=== PATIENT | male | born 1935 | race Caucasian/White ===

== ENCOUNTER 2017-03-11 16:55 | Inpatient (IN) ==
[2017-03-11] MEDS ORDERED: Naloxone 0.4 MG/ML INJ IVP PRN ×2 (22:33→22:37)
[2017-03-11] MEDS ORDERED: Ipratropium/Albuterol Neb 3 ML IH PRN (22:36)
--- NOTE | 2017-03-11 22:44 | Internal Med History&Physical ---
Date of Encounter: 03/11/17 Time of Encounter: 22:40 Assessment and Plan (1) Failure to thrive Current visit: Yes Status: Acute uncertain but could be related to progressive cancer syndrome ?? if sepsis work up negative IVF check blood cx, check CT chest UA from [facility] bland Hold antibiotics pending further testing above - he did not get better with antibiotics prior on chronic prednisone once daily per patient report - continue PT/OT may need placement Qualifiers: Failure to thrive age range: in adult Qualified Code(s): R62.7 - Adult failure to thrive (2) Persistent dry cough Current visit: Yes Status: Acute dry cough with associated SOB monitoring inpatient check CT chest w contrast to r/o PNA , PE (low suspicion) anti-tussive , duonebs (3) SOB (shortness of breath) Current visit: Yes Status: Acute pending above management and investigation (4) Prostate cancer metastatic to bone Current visit: Yes Status: Acute follow up with [facility] Internal Medicine - H&P: HPI Chief complaint: FTT History of present illness: Mr. Parsons is a 81 year old male with castrate resistant met prostate ca who preesnts with FTT symptoms in the last 1 month He presents as a transfer for [facility] for "PNA" ? He has apparently been admitted to the [facility] multiple times (4 x in last 3 weeks) in the last month for FTT symptoms with increased weakness, SOB, dry cough with no improvement despite antibiotic therapy. He would be discharged with no improvement, leading to repeated admission. ROS positive for hx of CAD s/p 8 stents. Has hx of met prostat can to liver and bones. EKG from [facility] reviewed by self with rate 120, sinus tachy While inpatient, Rate < 100 with good oxygenation on RA Past Med Surg Social Fam HX - Past Medical History Medical history: arthritis, cancer, coronary artery disease, diabetes, malignancy, myocardial infarction, TIA Psychiatric history: no psych history - Past Surgical History Surgical History: angioplasty/stent, prostatectomy - Social History Smoking Status: Former smoker Smokeless Tobacco Status: No Alcohol use: none Drug use: none - Family History Mother Living Status: Hx Family Cardiac Disorders: No Hx Family Respiratory Disorders: No Hx Family Cancer: Yes Hx Family GI Disorders: No Hx Family Genitourinary Disorders: Yes Hx Family Endocrine Disorder: No Hx Family Neuromuscular Disorders: No Hx Family Neurologic Disorders: No Hx Family HEENT Disorders: No Hx Family Autoimmune Disorders: No Hx Family Medical Disorders: Yes Internal Medicine - H&P: Meds Insulin ASPART [NovoLOG] 5 unit SQ TID MDD Sliding Scale 01/18/15 [History] Insulin Glargine,Hum.rec.anlog [Toujeo Solostar] 20 unit SQ DAILY 03/03/16 [ History] Nitroglycerin 0.4 mg SL Q5M PRN 03/03/16 [History] L. Acidophilus/Bifid. Animalis [One-A-Day Trubiotics Capsule] 1 each PO DAILY [History] Lutein 20 mg PO DAILY 04/17/16 [History] Cyanocobalamin (B-12) [Vitamin B12] 1,000 mcg IM QMONTH 01/01/17 [History] [place]-3/Dha/Epa/Fish Oil [Fish Oil 1,000 mg Softgel] 1 each PO DAILY 01/09/17 [ History] Ranitidine HCl [Zantac] 150 mg PO DAILY #30 tablet 01/09/17 [Rx] Enzalutamide [Xtandi] 120 mg PO HS #90 capsule 02/16/17 [Rx] Mv-Mn/FA/Lycopene/Lut/Hb#178 [Nirav Multivit For Men Caplet] 1 each PO DAILY [History] Promethazine [Phenergan] 25 mg PO Q6HR PRN #30 tablet 03/06/17 [Rx] predniSONE [PredniSONE] 5 mg PO BID #60 tablet 03/06/17 [Rx] 3 Allergy/AdvReac Type Severity Reaction Status Date / Time diphenhydramine Allergy Shakiness Verified 03/06/17 11:24 All Systems PM: A 10-system review of systems was performed and is negative for pertinent findings except as documented above in the HPI. Review of systems: ROS 14 point review of systems reviewed as best as possible given presentation. Pertinent positive or negative as per HPI or otherwise reviewed as negative - Constitutional Vitals: Temp Pulse Resp BP Pulse Ox 97.7 F 91 16 131/70 97 03/11/17 19:29 03/11/17 19:29 03/11/17 19:29 03/11/17 19:29 03/11/17 22:21 Exam: General - AAO x 3 Psych - Appropriate affect/speech. No agitation Eyes - JERAMY. Eye lids intact. No scleral icterus Neuro - No gross peripheral or central neuro deficits on inspection Heart - Sinus. RRR. S1 and S2 present. No added HS/murmurs appreciated. No elevated JVD appreciated. Lung - Adequate air entry b/l, No crackles/wheezes appreciated GI - Soft, non-tender. No hepatosplenomegaly/ascites. BS+ - No CVA/suprapubic tenderness or palpable bladder distension Skin - Intact. No rash/petechiae/ecchymosis. Warm extremities. No LE swellinh
[2017-03-11] MEDS ORDERED: Dextrose Gel 15 GM PO PRN ×2 (22:52)
[2017-03-11] MEDS ORDERED: D5% in Water 1,000 ML IVC PRN (22:52)
[2017-03-11] MEDS ORDERED: *HR* Dextrose 50 % in Water (Syg) 50 ML SYRINGE IVP PRN (22:52)
[2017-03-11] MEDS: Insulin DETEMIR 100 UNIT/ML X5UNITS SQ SCH (23:27)
[2017-03-12] MEDS: Ringers Solution, Lactated 1,000 ML IVC SCH ×2 (01:42→12:32)
[2017-03-12] MEDS: Benzonatate 100 MG CAPSULE PO PRN ×2 (04:09→12:24)
[2017-03-12 04:13] LABS: Basophils % 0.1 %; Eosinophils % 0.3 %; Hematocrit 32.2 % (37.5-50.1); Hemoglobin 10.4 g/dL (12.9-16.9); Immature Granulocytes % 0.6 % (0-4); Lymphocytes # 1.4 K/mcL (0.6-4.6); Lymphocytes % 9.4 %; Mean Corpuscular HGB Conc 32.3 g/dL (31.6-35.5); Mean Corpuscular Hemoglobin 27.4 pg (28.0-33.3); Mean Platelet Volume 9.6 fL (9.4-12.4); Monocytes # 1.2 K/mcL (0.0-1.3); Monocytes % 8.6 %; Neutrophils # 11.7 K/mcL (1.6-8.9); Platelet Count 196 K/mcL (140-400); Red Blood Count 3.79 M/mcL (4.19-5.50); Red Cell Distribution Width 13.9 % (11.5-14.5)
[2017-03-12 04:39] LABS: Albumin 2.7 g/dL (3.5-5.0); Albumin/Globulin Ratio 0.8 (1.1-2.2); Bilirubin,Direct 0.5 mg/dL (0.0-0.5); Bilirubin,Indirect 0.7 mg/dL (0.0-1.2); Bilirubin,Total 1.2 mg/dL (0.2-1.2); Calcium 8.9 mg/dL (8.6-10.8); Globulin 3.4 g/dL (2.4-3.5); Magnesium 1.5 mg/dL (1.6-2.6); Potassium 4.2 mEq/L (3.5-4.5); Total Protein 6.1 g/dL (6.0-8.3)
[2017-03-12] MEDS: Ipratropium/Albuterol Neb 3 ML IH SCH ×4 (04:55→22:21)
[2017-03-12] MEDS ORDERED: *HR* Enoxaparin 40 MG/0.4 ML SYRINGE SQ SCH (06:00)
[2017-03-12] MEDS: Insulin LISPRO 300 UNITS/3 ML VIAL SQ SCH ×4 (09:25→20:35)
[2017-03-12] MEDS: predniSONE 5 MG TABLET PO SCH (09:25)
[2017-03-12] MEDS: Famotidine 20 MG TABLET PO SCH (09:25)
[2017-03-12] MEDS: *HR* HYDROcodone/Acet 5/325 mg TABLET PO PRN (12:24)
[2017-03-12] MEDS ORDERED: 0.9 % Sodium Chloride 500 ML IVC ONE (14:53)
[2017-03-12] MEDS ORDERED: 0.9 % Sodium Chloride 500 ML ONE (14:54)
[2017-03-12] MEDS: *HR* Morphine 2 MG/ML SYRINGE IVP PRN (15:11)
[2017-03-12] MEDS: Nitroglycerin 0.4 MG TAB.SUBL SL PRN ×2 (15:15→15:20)
[2017-03-12] MEDS ORDERED: *HR* Adenosine 6 MG/2 ML VIAL IVP ONE (15:18)
[2017-03-12] MEDS ORDERED: Nitroglycerin 0.4 MG TAB.SUBL SL PRN (15:23)
--- NOTE | 2017-03-12 15:40 | Cardiology Consult Note ---
<Ruddy Atkinson - Last Filed: 03/12/17 15:38> Date of Encounter: 03/12/17 Time of Encounter: 15:40 Assessment and Plan (1) SVT (supraventricular tachycardia) Current Visit: No Status: Resolved Patient with acute SVT event. 6mg adenosine given x1 with conversion to NSR. C/ o symptoms 2 x a week for the past two weeks. H/o SVT. Currently hypotensive. Increase BB if b/p improves. (2) Chest pain Current Visit: No Status: Acute C/o intermittent chest pain over the past 2-3 weeks. Related to palpitations. Trend troponin. EKG showed HR [address] depression in the anteriolateral leads. H/o multiple PCI. Patient noted to have recurrent liver and bone lesions. Recommend oncology consult prior to any invasive procedures. Symptoms may be related to SVT. Check TTE and trend troponin. (3) CAD (coronary artery disease) Current Visit: No Status: Chronic H/o multiple PCI. Continue asa, statin, and bb. Last [facility] in 2015 showed moderate non-obstructive three vessel CAD. (4) Afib Current Visit: No Status: Chronic H/o PAF and atrial flutter. Currently NSR. Stopped taking xarelto 2 months ago due to nose bleeds. States he is not interested in restarting AC. Discussion w patient/family: The assessment and plan as outlined above was discussed with the patient and/or family members who expressed understanding and agreement. All questions were answered. Thank you for involving us in the care of your patient. Please call with any questions. History of Present Illness Consult date: 03/12/17 Requesting physician: Heaven Johnson Consult reason: SVT Chief complaint: Chest pain History of present illness: Mr. Parsons is a 81 year old male with a history of CAD s/p previous PCI, SVT , PAF, and atrial flutter, HTN, CKD, and prostate cancer with liver and bone mets. He was transferred from [facility] for possible pneumonia and failure to thrive. Reported to not have improved after IV antibiotics. Cardiology consulted for occurrence of SVT and chest discomfort. Past Med Surg Social Fam HX - Past Medical History Medical history: arthritis, cancer, coronary artery disease, diabetes, malignancy, myocardial infarction, TIA Psychiatric history: no psych history - Past Surgical History Surgical History: angioplasty/stent, prostatectomy - Social History Smoking Status: Former smoker Smokeless Tobacco Status: No Alcohol use: none Drug use: none - Family History Mother Living Status: Hx Family Cardiac Disorders: No Hx Family Respiratory Disorders: No Hx Family Cancer: Yes Hx Family GI Disorders: No Hx Family Genitourinary Disorders: Yes Hx Family Endocrine Disorder: No Hx Family Neuromuscular Disorders: No Hx Family Neurologic Disorders: No Hx Family HEENT Disorders: No Hx Family Autoimmune Disorders: No Hx Family Medical Disorders: Yes Medications and Allergies Insulin ASPART [NovoLOG] 5 unit SQ TID MDD Sliding Scale 01/18/15 [History] Insulin Glargine,Hum.rec.anlog [Toujeo Solostar] 15 unit SQ HS 03/03/16 [History ] L. Acidophilus/Bifid. Animalis [One-A-Day Trubiotics Capsule] 1 each PO DAILY [History] Lutein 20 mg PO DAILY 04/17/16 [History] Cyanocobalamin (B-12) [Vitamin B12] 1,000 mcg IM QMONTH 01/01/17 [History] [place]-3/Dha/Epa/Fish Oil [Fish Oil 1,000 mg Softgel] 1 each PO DAILY 01/09/17 [ History] Enzalutamide [Xtandi] 120 mg PO HS #90 capsule 02/16/17 [Rx] Mv-Mn/FA/Lycopene/Lut/Hb#178 [Nirav Multivit For Men Caplet] 1 each PO DAILY [History] Promethazine [Phenergan] 25 mg PO Q6HR PRN #30 tablet 03/06/17 [Rx] predniSONE [PredniSONE] 5 mg PO BID #60 tablet 03/06/17 [Rx] Metoprolol XL (24 HR) Succ [Toprol XL] 25 mg PO DAILY 03/12/17 [History] 3 Allergy/AdvReac Type Severity Reaction Status Date / Time diphenhydramine AdvReac Shakiness Verified 03/12/17 08:42 All Systems Review: A 10-system review of systems was performed and is negative for pertinent findings except as documented above in the HPI. Physical Examination Vital Signs, Last 4 Hours Resp Pulse Ox 03/12/17 11:47 18 96 General: Conversant, No Apparent Distress, Other (pale, ill appearing) HEENT: Atraumatic, Normocephaly, Mucus Membranes Moist Neck: No JVD, Normal carotid pulses Cardiac: Reg Rate and Rhythm, Normal S1 and S2, No Murmur Lungs: Normal Breath Sounds, No Wheeze, Rales, Rhonchi Neuro: Alert and responsive, No focal deficits noted Abdomen: Soft, Non-Tender Skin: No rashes noted on visualized skin Musculoskeletal: No Chest Wall Tenderness Extremities: No Clubbing, No Cyanosis, No Edema, Normal Pulses Results 03/12/17 03:59 03/12/17 03:59 Lab Results 03/12/17 03/12/17 03:59 03:59 WBC 14.4 H Hgb 10.4 L Hct 32.2 L Plt Count 196 Sodium 134 L Potassium 4.2 Chloride 100 Carbon Dioxide 22 BUN 24 Creatinine 1.43 H Glucose 252 H Calcium 8.9 Magnesium 1.5 L Total Bilirubin 1.2 AST 140 H ALT 77 H Alkaline Phosphatase 88 - EKG Interpretation EKG results cardiology: personally reviewed Consult Discharge Plan - Plan Referrals: Fani, Cardiology [Other] (Office will call patient at home with follow up appointment) Rozina Villeda MD [Primary Care Provider] - 03/28/17 1:30 pm <Zane Juan - Last Filed: 03/13/17 15:00> Date of Encounter: 03/13/17 - Attending Attestation 81 YOM with h/o SVT and vasomotor symptoms. He has liver and bone mets followed by oncology. ST changes and chest pain with rapid heart rate, likely would benefit from an ischemic workup but with multiple comorbidities unsure of custodial benefit. Will discuss with oncology but currently medical management ( control of heart rate and underlying Pneumonia) Assessment and Plan Discussion w patient/family: The assessment and plan as outlined above was discussed with the patient and/or family members who expressed understanding and agreement. All questions were answered. Thank you for involving us in the care of your patient. Please call with any questions. History of Present Illness History of present illness: Mr. Parsons is a 81 year old male All Systems Review: A 10-system review of systems was performed and is negative for pertinent findings except as documented above in the HPI. Physical Examination Vital Signs, Last 4 Hours Temp Pulse Resp BP Pulse Ox 03/13/17 11:14 96.5 F L 91 18 145/64 94 Results 03/13/17 05:21 03/13/17 05:21 Lab Results 03/12/17 03/12/17 03/12/17 15:17 15:58 15:58 WBC 14.4 H Hgb 10.0 L Hct 31.9 L Plt Count 169 INR 1.3 APTT 23.5 L Sodium Potassium Chloride Carbon Dioxide BUN Creatinine Glucose Calcium Magnesium Total Bilirubin AST ALT Alkaline Phosphatase Troponin I 0.02 03/12/17 03/12/17 03/13/17 22:30 22:30 05:21 WBC 12.8 H Hgb 9.1 L Hct 28.0 L Plt Count 170 INR APTT 52.8 H D Sodium Potassium Chloride Carbon Dioxide BUN Creatinine Glucose Calcium Magnesium Total Bilirubin AST ALT Alkaline Phosphatase Troponin I 0.04 H* 03/13/17 03/13/17 03/13/17 05:21 05:21 05:21 WBC Hgb Hct Plt Count INR APTT 54.9 H Sodium 138 Potassium 3.9 Chloride 107 Carbon Dioxide 21 BUN 21 Creatinine 1.46 H Glucose 220 H Calcium 8.3 L Magnesium 1.7 Total Bilirubin 0.7 AST 121 H ALT 69 H Alkaline Phosphatase 79 Troponin I 0.03 03/13/17 14:20 WBC Hgb Hct Plt Count INR APTT 58.0 H Sodium Potassium Chloride Carbon Dioxide BUN Creatinine Glucose Calcium Magnesium Total Bilirubin AST ALT Alkaline Phosphatase Troponin I
[2017-03-12] MEDS ORDERED: *HR* Heparin 5,000 UNIT/ML VIAL IVP PRN (15:43)
[2017-03-12] MEDS ORDERED: *HR* Heparin 5,000 UNIT/ML VIAL IVP ONE (15:43)
[2017-03-12] MEDS ORDERED: Vancomycin 1,250 MG in D5% in Water 250 ML IVPB SCH ×2 (16:00→18:00)
[2017-03-12] MEDS ORDERED: Aspirin Enteric Coated 325 MG Tablet PO ONE (16:02)
--- NOTE | 2017-03-12 16:08 | Internal Med Progress Note ---
Date of Encounter: 03/12/17 Time of Encounter: 16:03 - Assessment and plan (1) Sepsis Current Visit: Yes Status: Acute Assessment and plan: Pt did meet sepsis criteria with elevated WBC-14, LA 3.5, Fever T mxa 100.7, Source of inf as PNA sent for blood cx trend on Lactic acid and WBC Started on empirical abx Zosyn and Vancomycin Will get sputum cx Placed him on Duoneb get CXR stat Gave him IV fluids NS x 1 lit bolus + maintenance fluids.. Due to his Diastolic CHF-- will do gentle hydration I spent 60 minutes on this pt's critical care time Qualifiers: Qualified Code(s): A41.9 - Sepsis, unspecified organism (2) Pneumonia Current Visit: Yes Status: Acute Assessment and plan: mostly aspirational Ordered CXR cont empirical abx Qualifiers: Pneumonia type: aspiration pneumonia Laterality: unspecified laterality Qualified Code(s): J69.0 - Pneumonitis due to inhalation of food and vomit (3) Unstable angina Current Visit: Yes Status: Acute Assessment and plan: He does have unstable angina h/o CAD s/p stents..recent stent 2yrs ago EKG showed ST changes / some ischemic changes will give him ASA 325mg x 1 now Started him on Heparin gtt Cont trending on Trop..initial trop now 0.02 Started him on Metoprolol 25mg BID If his HR persistently elevated will give PRN Lopressor Card consulted and agreed with above plan may need cardiac cath in AM will keep him NPO after mid night will transfer the pt to step down unit.. since he is high risk for cardiac / resp compromise (4) SVT (supraventricular tachycardia) Current Visit: No Status: Acute Assessment and plan: Could be due to sepsis + acute IN improved now cont B jesus PO.. 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 as renal protective will consult Nephro (7) Hypothyroidism Current Visit: No Status: Chronic Qualifiers: Hypothyroidism type: acquired Qualified Code(s): E03.9 - Hypothyroidism, unspecified (8) DVT prophylaxis Current Visit: No Status: Acute Assessment and plan: on Heparin (9) Prostate cancer metastatic to bone Current Visit: Yes Status: Acute Assessment and plan: Reviewed CT of chest..showed metastatic lesion in T11 need to f/u with Heme Onc as an out pt Heme Onc recently started him on Docetaxel - Subjective Interval history: Mr. Parsons is a 81 year old male with castrate resistant met prostate ca, CAD s/p 8 stents, intermittent sinus tachycardia, who started taking Lopressor XL 25mg from last 3 days now he preseted to [facility] last night with cough, SOB and BURROUGHS worsening from last few days. Pt was admitted here and started him on IV fluids and pain medications. Just an hours ago around 3.00 PM he c/o Left chest wall pain and suddenly went into SVT. His EKG showed VR 181, some conduction delay, non specific ST changes. Gave him Nitro x 2 doses and Morphine, his CP improved. However he was still in SVT and HR in 180's so gave him 1 dose Iv Adenosine , since then his HR improved down to 100's now. - Constitutional Vitals: Temp Pulse Resp BP Pulse Ox 98.4 F 107 18 144/70 96 03/12/17 10:34 03/12/17 10:34 03/12/17 11:47 03/12/17 10:34 03/12/17 11:47 General appearance: Present: A&O X 3, no acute distress, answers questions appropriately - Head Head exam: Present: atraumatic, normal inspection - Respiratory Respiratory exam: Present: decreased breath sounds, rales (mild crackles at basal regions), wheezes (mild). Absent: respiratory distress, rhonchi - Cardiovascular Cardiovascular exam: Present: +S1, +S2, tachycardia - GI/Abdominal GI/Abdominal exam: Present: normal bowel sounds, soft. Absent: rebound, rigid, tenderness - Extremities Exam Extremities exam: Absent: calf tenderness, pedal edema, tenderness - Back Exam Back exam: Absent: CVA tenderness (L), CVA tenderness (R) - Psychiatric Psychiatric exam: Present: normal affect, normal mood - Skin Skin exam: Absent: rash Internal Medicine: Result - Labs CBC & Chem 7: 03/12/17 03:59 03/12/17 03:59 Labs: Short CBC 03/12/17 Range/Units 03:59 WBC 14.4 H (4.3-11.1) K/mcL Hgb 10.4 L (12.9-16.9) g/dL Hct 32.2 L (37.5-50.1) % Plt Count 196 (140-400) K/mcL Neutrophils # 11.7 H (1.6-8.9) K/mcL BMP 03/12/17 03:59 Sodium 134 L Potassium 4.2 Chloride 100 Carbon Dioxide 22 BUN 24 Creatinine 1.43 H Glucose 252 H Calcium 8.9 Cardiac Enzymes 03/12/17 Range/Units 15:17 Troponin I 0.02 (0-0.03) ng/mL Liver Function 03/12/17 Range/Units 03:59 Total Bilirubin 1.2 (0.2-1.2) mg/dL Direct Bilirubin 0.5 (0.0-0.5) mg/dL AST 140 H (5-34) Units/L ALT 77 H (0-55) Units/L Alkaline Phosphatase 88 (38-126) Units/L Albumin 2.7 L (3.5-5.0) g/dL - Impressions Impressions Chest CTA 03/12/17 00:00 IMPRESSION: 1. No definite scan evidence for pulmonary embolus on a study limited by motion artifact. 2. No acute airspace disease. 3. New sclerotic lesion in T11, presumably a metastasis. D/ / Jacques Smith MD / Jacques Smith MD Interpreting Provider: Jacques Smith MD Consult Discharge Plan - Plan Referrals: Rozina Villeda MD [Primary Care Provider] -
[2017-03-12 16:12] LABS: INR 1.3; Prothrombin Time 13.7 Seconds (9.4-12.1)
[2017-03-12 16:15] LABS: Activated Partial Thrombo Time 23.5 Seconds (26.0-36.0)
[2017-03-12 16:17] LABS: Hematocrit 31.9 % (37.5-50.1); Mean Corpuscular HGB Conc 31.3 g/dL (31.6-35.5); Mean Corpuscular Hemoglobin 27.2 pg (28.0-33.3); Mean Corpuscular Volume 86.9 fL (83.0-100.0); Mean Platelet Volume 10.6 fL (9.4-12.4); Platelet Count 169 K/mcL (140-400); Red Blood Count 3.67 M/mcL (4.19-5.50); Red Cell Distribution Width 13.8 % (11.5-14.5)
[2017-03-12] MEDS: 0.9 % Sodium Chloride 1,000 ML IVC SCH (16:25)
[2017-03-12] MEDS: Heparin 25,000 UNIT/500 ML D5W 25,000 UNIT/500 ML MLS IVC SCH (16:41)
[2017-03-12] MEDS: Piperacillin/Tazobactam 3.375 GM/200 ML BAG IVPB SCH ×2 (17:56→23:31)
[2017-03-12] MEDS: GuaiFENesin/Codeine Oral Soln 5 ML UDC PO PRN (18:41)
[2017-03-12] MEDS: Insulin DETEMIR 100 UNIT/ML X5UNITS SQ SCH (20:34)
[2017-03-12] MEDS: *HR* Acetylcysteine 20% 600 MG/3 ML ORAL SYRINGE PO SCH (20:34)
[2017-03-12] MEDS: ENZALUTAMIDE 120 MG PO SCH (20:37)
[2017-03-12] MEDS: *HR* Heparin 5,000 UNIT/ML VIAL IVP PRN (23:30)
[2017-03-13] MEDS: 0.9 % Sodium Chloride 1,000 ML IVC SCH ×2 (00:43→09:56)
[2017-03-13] MEDS: GuaiFENesin/Codeine Oral Soln 5 ML UDC PO PRN ×2 (02:58→07:44)
[2017-03-13] MEDS: Ipratropium/Albuterol Neb 3 ML IH SCH ×4 (04:52→23:07)
[2017-03-13 05:36] LABS: Basophils % 0.2 %; Eosinophils # 0.1 K/mcL (0.0-0.6); Eosinophils % 0.9 %; Hemoglobin 9.1 g/dL (12.9-16.9); Immature Granulocytes % 0.6 % (0-4); Lymphocytes # 2.2 K/mcL (0.6-4.6); Mean Corpuscular HGB Conc 32.5 g/dL (31.6-35.5); Mean Corpuscular Hemoglobin 27.8 pg (28.0-33.3); Mean Corpuscular Volume 85.6 fL (83.0-100.0); Mean Platelet Volume 9.5 fL (9.4-12.4); Monocytes # 0.8 K/mcL (0.0-1.3); Monocytes % 6.4 %; Neutrophils # 9.6 K/mcL (1.6-8.9); Nucleated Red Blood Cells 0.2 /100 WBC (0); Platelet Count 170 K/mcL (140-400); Red Blood Count 3.27 M/mcL (4.19-5.50); Red Cell Distribution Width 13.9 % (11.5-14.5); Segmented Neutrophils % 74.9 %
[2017-03-13 05:58] LABS: Albumin 2.4 g/dL (3.5-5.0); Albumin/Globulin Ratio 0.8 (1.1-2.2); Bilirubin,Direct 0.3 mg/dL (0.0-0.5); Bilirubin,Indirect 0.4 mg/dL (0.0-1.2); Bilirubin,Total 0.7 mg/dL (0.2-1.2); Calcium 8.3 mg/dL (8.6-10.8); Globulin 3.2 g/dL (2.4-3.5); Magnesium 1.7 mg/dL (1.6-2.6); Potassium 3.9 mEq/L (3.5-4.5); Total Protein 5.6 g/dL (6.0-8.3)
[2017-03-13] MEDS ORDERED: Aminoglycoside Consult 1 EACH MC ONE (07:15)
[2017-03-13] MEDS: *HR* Heparin 5,000 UNIT/ML VIAL IVP PRN (07:44)
[2017-03-13] MEDS: Aspirin Enteric Coated 81 MG Tablet PO SCH (08:28)
[2017-03-13] MEDS: Famotidine 20 MG TABLET PO SCH (08:28)
[2017-03-13] MEDS: predniSONE 5 MG TABLET PO SCH (08:28)
[2017-03-13] MEDS: Piperacillin/Tazobactam 3.375 GM/200 ML BAG IVPB SCH ×2 (08:29→19:01)
[2017-03-13] MEDS: Insulin LISPRO 300 UNITS/3 ML VIAL SQ SCH ×4 (08:30→21:03)
--- NOTE | 2017-03-13 10:20 | Cardiology Progress Note ---
Date of Encounter: 03/13/17 Time of Encounter: 09:00 Assessment and Plan (1) SVT (supraventricular tachycardia) Current Visit: No Status: Acute Patient with acute SVT event. 6mg adenosine given x1 with conversion to NSR. C/ o intermittent symptoms 2 x a week for the past two weeks. Increase bb as tolerated. B/p has improved. One small 10 beat run of SVT seen otherwise NSR on telemetry. (2) Chest pain Current Visit: No Status: Acute C/o intermittent chest pain over the past 2-3 weeks. Related to palpitations. May be secondary to SVT. EKG showed HR [address] depression in the anteriolateral leads. ST changes resolved on f/u EKG. Likely demand ischemia. Troponin 0.03, 0.04, 0.03 in the setting of sepsis and pneumonia non diagnostic for ACS. H/o multiple PCI. Recommend treatment of pneumonia and can re-evaluate symptoms. Continue medical management. If no significant change on TTE cardiology will sign off. Qualifiers: Chest pain type: unspecified Qualified Code(s): R07.9 - Chest pain, unspecified (3) CAD (coronary artery disease) Current Visit: No Status: Chronic H/o multiple PCI. Continue asa, statin, and bb. Last [facility] in 2016 showed moderate non-obstructive three vessel CAD. Qualifiers: Coronary Disease-Associated Artery/Lesion type: [place] artery [place] vs. transplanted heart: [place] heart Associated angina: with stable angina Qualified Code(s): I25.118 - Atherosclerotic heart disease of [place] coronary artery with other forms of angina pectoris (4) Afib Current Visit: No Status: Chronic H/o PAF and atrial flutter. Currently NSR. No PAF seen during stay. Stopped taking xarelto 2 months ago due to nose bleeds. States he is not interested in restarting xarelto and declines coumadin due to family member having an adverse event on coumadin. Continue asa. Qualifiers: Atrial fibrillation type: paroxysmal Qualified Code(s): I48.0 - Paroxysmal atrial fibrillation Discussion w patient/family: The assessment and plan as outlined above was discussed with the patient and/or family members who expressed understanding and agreement. All questions were answered. Thank you for involving us in the care of your patient. Please call with any questions. Subjective Principal diagnosis: SVT, chest pain Interval history: Mr. Parsons states he is feeling better. C/o persistent cough. Reports several seconds of palpitations this morning but denies chest pain. Objective Vital Signs, Last 4 Hours Temp Pulse Resp BP Pulse Ox 03/13/17 07:35 97.7 F 92 20 138/58 97 General: Conversant, No Apparent Distress HEENT: Atraumatic, Normocephaly, Mucus Membranes Moist Neck: No JVD, Normal carotid pulses Cardiac: Reg Rate and Rhythm, Normal S1 and S2, No Murmur Lungs: Other (Diminished throughout, moist cough ) Neuro: Alert and responsive, No focal deficits noted Abdomen: Soft, Non-Tender Skin: No rashes noted on visualized skin Musculoskeletal: No Chest Wall Tenderness Extremities: No Clubbing, No Cyanosis, No Edema, Normal Pulses Results 03/13/17 05:21 03/13/17 05:21 Lab Results 03/12/17 03/12/17 03/12/17 15:17 15:58 15:58 WBC 14.4 H Hgb 10.0 L Hct 31.9 L Plt Count 169 INR 1.3 APTT 23.5 L Sodium Potassium Chloride Carbon Dioxide BUN Creatinine Glucose Calcium Magnesium Total Bilirubin AST ALT Alkaline Phosphatase Troponin I 0.02 03/12/17 03/12/17 03/13/17 22:30 22:30 05:21 WBC 12.8 H Hgb 9.1 L Hct 28.0 L Plt Count 170 INR APTT 52.8 H D Sodium Potassium Chloride Carbon Dioxide BUN Creatinine Glucose Calcium Magnesium Total Bilirubin AST ALT Alkaline Phosphatase Troponin I 0.04 H* 03/13/17 03/13/17 03/13/17 05:21 05:21 05:21 WBC Hgb Hct Plt Count INR APTT 54.9 H Sodium 138 Potassium 3.9 Chloride 107 Carbon Dioxide 21 BUN 21 Creatinine 1.46 H Glucose 220 H Calcium 8.3 L Magnesium 1.7 Total Bilirubin 0.7 AST 121 H ALT 69 H Alkaline Phosphatase 79 Troponin I 0.03 - Imaging and Cardiology Echo: pending - EKG Interpretation EKG results cardiology: personally reviewed Consult Discharge Plan - Plan Referrals: Rozina Villeda MD [Primary Care Provider] -
[2017-03-13] MEDS: *HR* Acetylcysteine 20% 600 MG/3 ML ORAL SYRINGE PO SCH ×2 (11:07→21:05)
[2017-03-13] MEDS: Benzonatate 100 MG CAPSULE PO PRN (11:55)
[2017-03-13] MEDS: Heparin 25,000 UNIT/500 ML D5W 25,000 UNIT/500 ML MLS IVC SCH (12:52)
[2017-03-13] MEDS: *HR* HYDROcodone/Acet 5/325 mg TABLET PO PRN (13:47)
--- NOTE | 2017-03-13 16:01 | Internal Med Progress Note ---
<Merry Evangelista - Last Filed: 03/13/17 17:53> Date of Encounter: 03/13/17 Time of Encounter: 13:45 - Assessment and plan (1) Sepsis Current Visit: Yes Status: Acute Assessment and plan: Sepsis criteria met on admission--WBC 14, lactic acid 3.5, Tmax 100.7, source of infection PNA Lactic acid and WBC improved (1.4 and 12.8) Blood cultures--no growth after 48 hours, final results pending CXR 03/12/17--no acute cardiopulmonary disease, clinically meets PNA Monitor WBC count Continue empiric Zosyn (day 2); vancomycin stopped Qualifiers: Sepsis type: sepsis due to unspecified organism Qualified Code(s): A41.9 - Sepsis, unspecified organism (2) Pneumonia Current Visit: Yes Status: Acute Assessment and plan: Most likely d/t aspiration CXR 03/13/17--no acute cardiopulmonary disease, clinically meets PNA. Initial CXR not supportive, but clinical exam highly concerning Continue empiric zosyn (day 2); stopped vancomycin Qualifiers: Pneumonia type: aspiration pneumonia Laterality: unspecified laterality Lung location: unspecified part of lung Qualified Code(s): J69.0 - Pneumonitis due to inhalation of food and vomit (3) Unstable angina Current Visit: Yes Status: Acute Assessment and plan: Known CAD with multiple PCI's Initial trop 0.02, increased to 0.04--0.03 today TTE 03/12/17 shows LVEF 60%, mild LV diastolic dysfunction, normal LV size & function, normal RV size & function, mild AR Heparin gtt stopped Continue metoprolol 50mg BID (4) SVT (supraventricular tachycardia) Current Visit: No Status: Acute Assessment and plan: Admitted with SVT 6mg adenosine given x1 with conversion to NSR at the time of admission. Was well controlled on 50mg metoprolol PO BID. Had 10 beats SVT, cardiology aware Continue BB, may require adjustment based on rhythm (5) Diabetes Current Visit: No Status: Chronic Assessment and plan: SSI Qualifiers: Diabetes mellitus type: type 2 Diabetes mellitus complication status: with kidney complications Diabetes mellitus complication detail: with chronic kidney disease Diabetes mellitus longterm insulin use: with superintendent terminal use Chronic kidney disease stage: stage 3 (moderate) Qualified Code(s): E11.22 - Type 2 diabetes mellitus with diabetic chronic kidney disease; N18.3 - Chronic kidney disease, stage 3 (moderate); N18.3 - Chronic kidney disease, stage 3 ( moderate); Z79.4 - [facility] (current) use of insulin; Z79.4 - superintendent terminal ( current) use of insulin; Z79.4 - superintendent terminal (current) use of insulin; Z79.4 - [facility] (current) use of insulin (6) CKD stage 3 due to type 2 diabetes mellitus Current Visit: Yes Status: Chronic Assessment and plan: Creatinine baseline approx 1.3, creatinine 1.49 today Continue to monitor on morning labs Avoid nephro toxic meds (7) Hypothyroidism Current Visit: No Status: Chronic Qualifiers: Hypothyroidism type: acquired Qualified Code(s): E03.9 - Hypothyroidism, unspecified (8) DVT prophylaxis Current Visit: Yes Status: Acute Assessment and plan: Heparin 5,000 units SubQ (9) Prostate cancer metastatic to bone Current Visit: Yes Status: Acute Assessment and plan: CTA chest 03/12/17--no definite evidence for PE (study limited by motion artifact ); no acute airspace disease; new sclerotic lesion of T11, presumably metastatic Patient's oncologist is Dr. Willams--at most recent outpatient visit, plan was to restart docetaxel - Subjective Interval history: Patient seen and examined this afternoon at bedside, he says he feels a little better today but his unproductive cough still bothers him. He states his abdomen is sore from his coughing, but denies abdominal cramping, N/V, diarrhea , constipation. Admits chest pressure and neck discomfort when his heart rate gets "in the 160's." At time of exam, his HR was in the 80's. - Constitutional Vitals: Temp Pulse Resp BP Pulse Ox 96.5 F L 91 18 145/64 95 03/13/17 11:14 03/13/17 11:14 03/13/17 15:42 03/13/17 11:14 03/13/17 15:42 General appearance: Present: A&O X 3, no acute distress, answers questions appropriately - Head Head exam: Present: atraumatic, normocephalic - Eye Eye exam: Present: EOMI - Neck Neck exam general surgery: Present: full ROM, supple - Respiratory Respiratory exam: Present: rales (bibasilar). Absent: decreased breath sounds, respiratory distress, rhonchi, wheezes, tachypnea - Cardiovascular Cardiovascular exam: Present: RRR, +S1, +S2 - GI/Abdominal GI/Abdominal exam: Present: distended, normal bowel sounds, tenderness (diffuse) . Absent: guarding, rebound, rigid - Extremities Exam Extremities exam: Absent: cyanotic, pedal edema, tenderness Additional comments: PD pulses equal - Neurological Exam Neurological exam: Present: alert, oriented X3. Absent: no focal deficits, speech deficit Internal Medicine: Result - Labs CBC & Chem 7: 03/13/17 05:21 03/13/17 17:22 Labs: Short CBC 03/12/17 03/13/17 Range/Units 15:58 05:21 WBC 14.4 H 12.8 H (4.3-11.1) K/mcL Hgb 10.0 L 9.1 L (12.9-16.9) g/dL Hct 31.9 L 28.0 L (37.5-50.1) % Plt Count 169 170 (140-400) K/mcL Neutrophils # 9.6 H (1.6-8.9) K/mcL BMP 03/13/17 05:21 Sodium 138 Potassium 3.9 Chloride 107 Carbon Dioxide 21 BUN 21 Creatinine 1.46 H Glucose 220 H Calcium 8.3 L Cardiac Enzymes 03/12/17 03/12/17 03/13/17 Range/Units 15:17 22:30 05:21 Troponin I 0.02 0.04 H* 0.03 (0-0.03) ng/mL Liver Function 03/13/17 Range/Units 05:21 Total Bilirubin 0.7 (0.2-1.2) mg/dL Direct Bilirubin 0.3 (0.0-0.5) mg/dL AST 121 H (5-34) Units/L ALT 69 H (0-55) Units/L Alkaline Phosphatase 79 (38-126) Units/L Albumin 2.4 L (3.5-5.0) g/dL - ABG Interpretation ABG results: PT/INR, D-dimer PT 13.7 Seconds (9.4-12.1) H 03/12/17 15:58 - Impressions Impressions Chest X-Ray 03/12/17 15:44 IMPRESSION: No acute cardiopulmonary disease. D/ / Florencio Adams MD / Florencio Adams MD Interpreting Provider: Florencio Adams MD Echocardiogram 03/12/17 16:25 Impressions: LVEF 60%. Normal LV chamber size, wall thickness and function. Mild left ventricular diastolic dysfunction. Normal right ventricular structure and function. Mild aortic regurgitation. No evidence of pulmonary hypertension. Findings: Study Quality * Technically adequate exam. ECG Findings * Normal sinus rhythm. Left Ventricle * LVEF 60%. * Normal LV chamber size, wall thickness and function. * Mild left ventricular diastolic dysfunction. Right Ventricle * Normal right ventricular structure and function. Left Atrium * Normal left atrial size. Right Atrium * Normal right atrial size. Interatrial Septum * Interatrial septum not well evaluated. Aortic Valve * Trileaflet aortic valve. * Mild aortic regurgitation. * No aortic stenosis. Mitral Valve * Normal mitral valve structure and function. * No mitral regurgitation. * No mitral stenosis. Tricuspid Valve * Normal tricuspid valve structure and function. * Trace tricuspid regurgitation. * No evidence of pulmonary hypertension. Pulmonic Valve * Normal pulmonic valve structure and function. * Trace pulmonic regurgitation. Aorta * Normally sized aortic root. Pericardium * The pericardium appears normal. 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 Function appears {function{. IVC * The IVC is not well evaluated. Pulmonary Artery * Normal visualized portions of the main pulmonary artery. Consult Discharge Plan - Plan Referrals: [place], Cardiology [Other] (Office will call patient at home with follow up appointment) Rozina Villeda MD [Primary Care Provider] - 03/28/17 1:30 pm <Mike Henderson - Last Filed: 03/13/17 19:05> Date of Encounter: 03/13/17 - Assessment and plan (1) SVT (supraventricular tachycardia) Current Visit: No Status: Acute (2) Pneumonia Current Visit: Yes Status: Acute Qualifiers: Pneumonia type: aspiration pneumonia Laterality: unspecified laterality Lung location: unspecified part of lung Qualified Code(s): J69.0 - Pneumonitis due to inhalation of food and vomit (3) Sepsis Current Visit: Yes Status: Acute Qualifiers: Sepsis type: sepsis due to unspecified organism Qualified Code(s): A41.9 - Sepsis, unspecified organism (4) Prostate cancer metastatic to bone Current Visit: Yes Status: Chronic (5) Unstable angina Current Visit: Yes Status: Acute (6) CKD stage 3 due to type 2 diabetes mellitus Current Visit: Yes Status: Chronic (7) CAD (coronary artery disease) Current Visit: No Status: Chronic Qualifiers: Coronary Disease-Associated Artery/Lesion type: [place] artery [place] vs. transplanted heart: tribal heart Associated angina: with unstable angina Qualified Code(s): I25.110 - Atherosclerotic heart disease of [place] coronary artery with unstable angina pectoris (8) Hypothyroidism Current Visit: No Status: Chronic Qualifiers: Hypothyroidism type: acquired Qualified Code(s): E03.9 - Hypothyroidism, unspecified (9) Chronic diastolic (congestive) heart failure Current Visit: Yes Status: Chronic - Constitutional Vitals: Temp Pulse Resp BP Pulse Ox 98.2 F 163 21 139/85 97 03/13/17 16:44 03/13/17 16:44 03/13/17 16:44 03/13/17 16:44 03/13/17 16:44 Internal Medicine: Result - Labs CBC & Chem 7: 03/13/17 05:21 03/13/17 17:22 Labs: Short CBC 03/13/17 Range/Units 05:21 WBC 12.8 H (4.3-11.1) K/mcL Hgb 9.1 L (12.9-16.9) g/dL Hct 28.0 L (37.5-50.1) % Plt Count 170 (140-400) K/mcL Neutrophils # 9.6 H (1.6-8.9) K/mcL BMP 03/13/17 03/13/17 05:21 17:22 Sodium 138 137 Potassium 3.9 4.2 Chloride 107 108 Carbon Dioxide 21 16 L BUN 21 19 Creatinine 1.46 H 1.49 H Glucose 220 H 187 H Calcium 8.3 L 8.1 L Cardiac Enzymes 03/12/17 03/13/17 Range/Units 22:30 05:21 Troponin I 0.04 H* 0.03 (0-0.03) ng/mL Liver Function 03/13/17 Range/Units 05:21 Total Bilirubin 0.7 (0.2-1.2) mg/dL Direct Bilirubin 0.3 (0.0-0.5) mg/dL AST 121 H (5-34) Units/L ALT 69 H (0-55) Units/L Alkaline Phosphatase 79 (38-126) Units/L Albumin 2.4 L (3.5-5.0) g/dL - ABG Interpretation ABG results: PT/INR, D-dimer PT 13.7 Seconds (9.4-12.1) H 03/12/17 15:58 - Impressions Impressions Echocardiogram 03/12/17 16:25 Impressions: LVEF 60%. Normal LV chamber size, wall thickness and function. Mild left ventricular diastolic dysfunction. Normal right ventricular structure and function. Mild aortic regurgitation. No evidence of pulmonary hypertension. Findings: Study Quality * Technically adequate exam. ECG Findings * Normal sinus rhythm. Left Ventricle * LVEF 60%. * Normal LV chamber size, wall thickness and function. * Mild left ventricular diastolic dysfunction. Right Ventricle * Normal right ventricular structure and function. Left Atrium * Normal left atrial size. Right Atrium * Normal right atrial size. Interatrial Septum * Interatrial septum not well evaluated. Aortic Valve * Trileaflet aortic valve. * Mild aortic regurgitation. * No aortic stenosis. Mitral Valve * Normal mitral valve structure and function. * No mitral regurgitation. * No mitral stenosis. Tricuspid Valve * Normal tricuspid valve structure and function. * Trace tricuspid regurgitation. * No evidence of pulmonary hypertension. Pulmonic Valve * Normal pulmonic valve structure and function. * Trace pulmonic regurgitation. Aorta * Normally sized aortic root. Pericardium * The pericardium appears normal. 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 Function appears {function{. IVC * The IVC is not well evaluated. Pulmonary Artery * Normal visualized portions of the main pulmonary artery. - Attending Attestation I examined this patient and my medical decision-making was reviewed with the Resident Physician on 03/13/17. I agree with the documented findings, disposition and treatment plan as described except to the extent set forth below. Mr Parsons is currently admitted for pneumonia and sepsis. He has developed SVT requiring multiple interventions. He remains moderate to high risk due to potential for worsening cardiac and respiratory status. Mr Parsons feels OK. He has had multiple episodes of SVT - received Adenosine again today. Had some CP with it. Still with cough. No fever or chills. Exam Alert. Comfortable Heart reg now Lungs with some rhonchi Abd soft No edema I/P 1. SVT 2. PNA Further diagnoses and plan as above.
[2017-03-13] MEDS ORDERED: *HR* Metoprolol 5 MG/5 ML VIAL IVP ONE (16:38)
[2017-03-13] MEDS ORDERED: *HR* Adenosine 6 MG/2 ML VIAL IVP ONE ×2 (16:44→16:52)
[2017-03-13] MEDS: *HR* Morphine 2 MG/ML SYRINGE IVP PRN (17:16)
--- NOTE | 2017-03-13 17:32 | Event Note ---
<Merry Evangelista - Last Filed: 03/13/17 17:20> Date of Encounter: 03/13/17 Time of Encounter: 17:00 SVT event note Mr. Parsons went into SVT around 1700 this evening, unprovoked. Symptomatic with pain shooting into neck and left arm, but no loss of consciousness. Initial vitals showed HR 160s, RR 18, BP stable, afebrile. EKG obtained and showed SVT with sinus rhythm and HR in 160s. Patient didn't respond to conservative measures including bearing down and coughing. Lopressor 5mg given IV with little to no response, HR 150s. Patient continued to be symptomatic and was given cardizem 10mg IV with minimal to no improvement as he maintained HR 148 to 150. Second EKG obtained, showed SVT with HR 149. Crash cart brought into patient room and defibrillator pads placed on chest. Vitals rechecked, continued to show SVT, appropriate respiratory rate, patient in no respiratory distress, and systolic BP in 140s. Adenosine 6mg given IV with brief 3 second pause and patient returned to NSR with HR of 80. Post adenosine EKG obtained, shows NSR, HR 80, non-specific T wave inversion of V3 that was present on prior EKG. Mr. Parsons's symptoms resolved. Stat electrolytes and TSH obtained, he will remain in 2N ICU step down on cardiac monitoring. Cardiology will be consulted in morning for re-evaluation. Dr. Mike Henderson, attending on service, was present and oversaw the entire event. Resident physicians present include: Dr. Merry Evangelista, Dr. Bishnu Valenzuela, and Dr. Yeison Duran. <Mike Henderson - Last Filed: 03/13/17 19:06> Date of Encounter: 03/13/17 I was present during this event and agree with plan.
[2017-03-13 17:46] LABS: Calcium 8.1 mg/dL (8.6-10.8); Magnesium 1.7 mg/dL (1.6-2.6); Phosphorous 2.2 mg/dL (2.3-4.7); Potassium 4.2 mEq/L (3.5-4.5)
[2017-03-13] MEDS ORDERED: Magnesium Sulfate 1 GM in D5% in Water 100 ML IVPB ONE (18:05)
[2017-03-13 18:07] LABS: Thyroid Stimulating Hormone 4.605 mcIU/mL (0.350-4.840)
[2017-03-13] MEDS: Insulin DETEMIR 100 UNIT/ML X5UNITS SQ SCH (21:03)
[2017-03-14] MEDS: ENZALUTAMIDE 120 MG PO SCH (00:27)
[2017-03-14] MEDS: Benzonatate 100 MG CAPSULE PO PRN ×3 (00:44→20:10)
[2017-03-14] MEDS: *HR* HYDROcodone/Acet 5/325 mg TABLET PO PRN ×2 (00:44→08:16)
[2017-03-14] MEDS: Piperacillin/Tazobactam 3.375 GM/200 ML BAG IVPB SCH ×4 (00:45→23:31)
[2017-03-14] MEDS: Ipratropium/Albuterol Neb 3 ML IH SCH ×4 (04:07→22:18)
[2017-03-14] MEDS ORDERED: *HR* Enoxaparin 40 MG/0.4 ML SYRINGE SQ SCH (06:00)
[2017-03-14 06:37] LABS: Basophils # 0.1 K/mcL (0.0-0.2); Basophils % 0.5 %; Eosinophils # 0.2 K/mcL (0.0-0.6); Eosinophils % 2.2 %; Hematocrit 29.8 % (37.5-50.1); Hemoglobin 9.5 g/dL (12.9-16.9); Immature Granulocytes % 0.7 % (0-4); Lymphocytes # 0.8 K/mcL (0.6-4.6); Lymphocytes % 7.9 %; Mean Corpuscular HGB Conc 31.9 g/dL (31.6-35.5); Mean Corpuscular Hemoglobin 27.7 pg (28.0-33.3); Mean Corpuscular Volume 86.9 fL (83.0-100.0); Mean Platelet Volume 9.7 fL (9.4-12.4); Monocytes # 0.7 K/mcL (0.0-1.3); Monocytes % 6.3 %; Neutrophils # 8.8 K/mcL (1.6-8.9); Platelet Count 198 K/mcL (140-400); Red Blood Count 3.43 M/mcL (4.19-5.50); Red Cell Distribution Width 14.1 % (11.5-14.5); Segmented Neutrophils % 82.4 %
[2017-03-14 06:49] LABS: Albumin 2.3 g/dL (3.5-5.0); Albumin/Globulin Ratio 0.6 (1.1-2.2); Bilirubin,Direct 0.2 mg/dL (0.0-0.5); Bilirubin,Indirect 0.4 mg/dL (0.0-1.2); Bilirubin,Total 0.6 mg/dL (0.2-1.2); Calcium 8.3 mg/dL (8.6-10.8); Globulin 3.6 g/dL (2.4-3.5); Magnesium 1.9 mg/dL (1.6-2.6); Phosphorous 2.2 mg/dL (2.3-4.7); Potassium 4.3 mEq/L (3.5-4.5); Total Protein 5.9 g/dL (6.0-8.3)
[2017-03-14] MEDS: Aspirin Enteric Coated 81 MG Tablet PO SCH (08:12)
[2017-03-14] MEDS: Famotidine 20 MG TABLET PO SCH (08:12)
[2017-03-14] MEDS: *HR* Acetylcysteine 20% 600 MG/3 ML ORAL SYRINGE PO SCH (08:13)
[2017-03-14] MEDS: predniSONE 5 MG TABLET PO SCH (08:13)
[2017-03-14] MEDS: GuaiFENesin/Codeine Oral Soln 5 ML UDC PO PRN ×3 (08:13→23:36)
[2017-03-14] MEDS: *HR* Heparin 5,000 UNIT/ML VIAL SQ SCH ×3 (08:13→20:10)
[2017-03-14] MEDS: Insulin LISPRO 300 UNITS/3 ML VIAL SQ SCH ×5 (08:14→20:12)
[2017-03-14] MEDS ORDERED: Bisacodyl 10 MG RECTAL SUPPOSITORY RC ONE (10:09)
--- NOTE | 2017-03-14 13:38 | Internal Med Progress Note ---
<Bishnu Valenzuela - Last Filed: 03/14/17 15:16> Date of Encounter: 03/14/17 Time of Encounter: 13:37 - Assessment and plan (1) Sepsis Current Visit: Yes Status: Resolved Assessment and plan: admitted with sepsis critera- currently resolved. blood cultures negative growth to date. WBC improved. initially placed on broad spectrum antibiotics that have been de escalated. PLan: continue zosyn day 3 will discharge home tomorrow with Augmentin. Qualifiers: Sepsis type: sepsis due to unspecified organism Qualified Code(s): A41.9 - Sepsis, unspecified organism (2) Pneumonia Current Visit: Yes Status: Acute Assessment and plan: as above Qualifiers: Pneumonia type: aspiration pneumonia Laterality: unspecified laterality Lung location: unspecified part of lung Qualified Code(s): J69.0 - Pneumonitis due to inhalation of food and vomit (3) CAD (coronary artery disease) Current Visit: No Status: Chronic Assessment and plan: hisotry of multiple PCI in the past cath in 03/05/16 showed normal contractility of LV with EF 55%. patent stent rom prior procedure in proximal/mid RCA, mid LAD, proximal circumflex. Moderate three vessel CAD Qualifiers: Coronary Disease-Associated Artery/Lesion type: [place] artery [place] vs. transplanted heart: [place] heart Associated angina: with unstable angina Qualified Code(s): I25.110 - Atherosclerotic heart disease of [place] coronary artery with unstable angina pectoris (4) Unstable angina Current Visit: Yes Status: Acute Assessment and plan: intermittent chest pain for weeks Etiologies include: demand ischemia in setting of SVT and pneumonia, possible worsening of CAD. Echo on 03/12 showed LVEF 60%, normal LV chamber size, wall thickness, and function, normal RV structure and function, mild aortic regurg, no evidence of poulmoanry HTN. Plan: cardiology will re evaluate for [facility] outpatient once pnumonia is resolved. (5) SVT (supraventricular tachycardia) Current Visit: No Status: Acute Assessment and plan: two episodes of SVT, converted with adenosine. Plan: re consult to cardiology-appreciate recs beta jesus dose increased to TID (6) Diabetes Current Visit: No Status: Chronic Assessment and plan: on basal insulin with low dose sliding scale ADA diet ACHS accuchecks. Qualifiers: Diabetes mellitus type: type 2 Diabetes mellitus complication status: with kidney complications Diabetes mellitus complication detail: with chronic kidney disease Diabetes mellitus halfway insulin use: with halfway use Chronic kidney disease stage: stage 3 (moderate) Qualified Code(s): E11.22 - Type 2 diabetes mellitus with diabetic chronic kidney disease; N18.3 - Chronic kidney disease, stage 3 (moderate); N18.3 - Chronic kidney disease, stage 3 ( moderate); Z79.4 - long-term (current) use of insulin; Z79.4 - business solution analyst ( current) use of insulin; Z79.4 - business solution analyst (current) use of insulin; Z79.4 - long-term (current) use of insulin (7) CKD stage 3 due to type 2 diabetes mellitus Current Visit: Yes Status: Chronic Assessment and plan: continue to monitor kidney function currently at baseline. (8) Prostate cancer metastatic to bone Current Visit: Yes Status: Chronic Assessment and plan: CTA chest 03/12/17 showed no definite scan evidence for pulmonary embolus on a study limited by motion artifact, no acute airspace disease, new sclerotic lesion in T11, presumably metastasis. sees Dr. Willams outpatient-continue follow up after discharge. (9) DVT prophylaxis Current Visit: Yes Status: Acute Assessment and plan: heparin SQ - Subjective Interval history: 81M evaluated at bedside. patient denies nausea, vomiting, diarrhea, fever, chills, chest pain, shortness of breath. he admits to some constipation and denies any further problems today. - Constitutional Vitals: Temp Pulse Resp BP Pulse Ox 98.5 F 86 20 141/76 97 03/14/17 11:20 03/14/17 11:20 03/14/17 11:20 03/14/17 11:20 03/14/17 11:20 General appearance: Present: A&O X 3, pleasant, no acute distress, answers questions appropriately - Head Head exam: Present: atraumatic, normocephalic - Neck Neck exam general surgery: Present: supple, trachea midline - Respiratory Respiratory exam: Present: CTAB - Cardiovascular Cardiovascular exam: Present: RRR, +S1, +S2 - Extremities Exam Extremities exam: Absent: cyanotic, pedal edema - Back Exam Back exam: Absent: CVA tenderness (L), CVA tenderness (R) - Neurological Exam Neurological exam: Present: alert, oriented X3, no focal deficits - Psychiatric Psychiatric exam: Present: normal affect, normal mood Internal Medicine: Result - Labs CBC & Chem 7: 03/14/17 06:26 03/14/17 06:26 Labs: Short CBC 03/14/17 Range/Units 06:26 WBC 10.7 (4.3-11.1) K/mcL Hgb 9.5 L (12.9-16.9) g/dL Hct 29.8 L (37.5-50.1) % Plt Count 198 (140-400) K/mcL Neutrophils # 8.8 (1.6-8.9) K/mcL BMP 03/13/17 03/14/17 17:22 06:26 Sodium 137 133 L Potassium 4.2 4.3 Chloride 108 104 Carbon Dioxide 16 L 19 BUN 19 17 Creatinine 1.49 H 1.38 H Glucose 187 H 176 H Calcium 8.1 L 8.3 L Liver Function 03/14/17 Range/Units 06:26 Total Bilirubin 0.6 (0.2-1.2) mg/dL Direct Bilirubin 0.2 (0.0-0.5) mg/dL AST 163 H (5-34) Units/L ALT 77 H (0-55) Units/L Alkaline Phosphatase 86 (38-126) Units/L Albumin 2.3 L (3.5-5.0) g/dL - ABG Interpretation ABG results: PT/INR, D-dimer PT 13.7 Seconds (9.4-12.1) H 03/12/17 15:58 Consult Discharge Plan - Plan Referrals: [place], Cardiology [Other] (Office will call patient at home with follow up appointment) Rozina Villeda MD [Primary Care Provider] - 03/28/17 1:30 pm <Mike Henderson - Last Filed: 03/14/17 18:35> Date of Encounter: 03/14/17 - Assessment and plan (1) SVT (supraventricular tachycardia) Current Visit: No Status: Acute (2) Pneumonia Current Visit: Yes Status: Acute Qualifiers: Pneumonia type: aspiration pneumonia Laterality: unspecified laterality Lung location: unspecified part of lung Qualified Code(s): J69.0 - Pneumonitis due to inhalation of food and vomit (3) Sepsis Current Visit: Yes Status: Resolved Qualifiers: Sepsis type: sepsis due to unspecified organism Qualified Code(s): A41.9 - Sepsis, unspecified organism (4) Prostate cancer metastatic to bone Current Visit: Yes Status: Chronic (5) Unstable angina Current Visit: Yes Status: Acute (6) CKD stage 3 due to type 2 diabetes mellitus Current Visit: Yes Status: Chronic (7) CAD (coronary artery disease) Current Visit: No Status: Chronic Qualifiers: Coronary Disease-Associated Artery/Lesion type: [place] artery [place] vs. transplanted heart: [place] heart Associated angina: with unstable angina Qualified Code(s): I25.110 - Atherosclerotic heart disease of [place] coronary artery with unstable angina pectoris (8) Hypothyroidism Current Visit: No Status: Chronic Qualifiers: Hypothyroidism type: acquired Qualified Code(s): E03.9 - Hypothyroidism, unspecified (9) Chronic diastolic (congestive) heart failure Current Visit: Yes Status: Chronic - Constitutional Vitals: Temp Pulse Resp BP Pulse Ox 99.3 F 87 18 148/71 95 03/14/17 15:00 03/14/17 15:00 03/14/17 15:16 03/14/17 15:00 03/14/17 15:16 Internal Medicine: Result - Labs CBC & Chem 7: 03/14/17 06:26 03/14/17 06:26 Labs: Short CBC 03/14/17 Range/Units 06:26 WBC 10.7 (4.3-11.1) K/mcL Hgb 9.5 L (12.9-16.9) g/dL Hct 29.8 L (37.5-50.1) % Plt Count 198 (140-400) K/mcL Neutrophils # 8.8 (1.6-8.9) K/mcL BMP 03/14/17 06:26 Sodium 133 L Potassium 4.3 Chloride 104 Carbon Dioxide 19 BUN 17 Creatinine 1.38 H Glucose 176 H Calcium 8.3 L Liver Function 03/14/17 Range/Units 06:26 Total Bilirubin 0.6 (0.2-1.2) mg/dL Direct Bilirubin 0.2 (0.0-0.5) mg/dL AST 163 H (5-34) Units/L ALT 77 H (0-55) Units/L Alkaline Phosphatase 86 (38-126) Units/L Albumin 2.3 L (3.5-5.0) g/dL - ABG Interpretation ABG results: PT/INR, D-dimer PT 13.7 Seconds (9.4-12.1) H 03/12/17 15:58 - Attending Attestation I examined this patient and my medical decision-making was reviewed with the Resident Physician on 03/14/17. I agree with the documented findings, disposition and treatment plan as described except to the extent set forth below. Mr Parsons is currently admitted for pneumonia and SVT. He remains moderate to high risk due to potential for worsening cardiac and respiratory issues. Mr Parsons is feeling somewhat better today. No CP. Still with some cough. No further SVT overnight. No GI issues. Has been up in room. Exam Alert. Comfortable Mucus membranes dry Heart reg Scattered rhonchi Abd soft No edema I/P 1. PNA 2. SVT 3. Metastatic prostate cancer. Further diagnoses and plan as above.
--- NOTE | 2017-03-14 14:18 | Cardiology Progress Note ---
Date of Encounter: 03/14/17 Time of Encounter: 11:00 Assessment and Plan (1) SVT (supraventricular tachycardia) Current Visit: No Status: Acute Patient with acute SVT x2 this admission that resolved with adenosine bith times. H/o SVT seen on holter monitor previously. Likely exacerbated by acute illness. Increased lopressor as tolerated. Lopressor increased to 50 mg TID. Currently NSR. Continue to monitor. (2) Chest pain Current Visit: No Status: Acute C/o intermittent chest pain over the past 2-3 weeks. Related to palpitations. May be secondary to SVT. EKG showed HR [address] depression in the anteriolateral leads. ST changes resolved on f/u EKG. Likely demand ischemia. Troponin 0.03, 0.04, 0.03 in the setting of sepsis and pneumonia non diagnostic for ACS. H/o multiple PCI. ERIKA: LVEF 60%. Normal LV chamber size, wall thickness and function. Mild left ventricular diastolic dysfunction. Normal right ventricular structure and function. Mild aortic regurgitation. No evidence of pulmonary hypertension. Recommend treatment of pneumonia and can re-evaluate symptoms. Continue medical management. Qualifiers: Chest pain type: unspecified Qualified Code(s): R07.9 - Chest pain, unspecified (3) CAD (coronary artery disease) Current Visit: No Status: Chronic H/o multiple PCI. Continue asa, statin, and bb. Last C in 2016 showed moderate non-obstructive three vessel CAD. Qualifiers: Coronary Disease-Associated Artery/Lesion type: [place] artery [place] vs. transplanted heart: [place] heart Associated angina: with unstable angina Qualified Code(s): I25.110 - Atherosclerotic heart disease of [place] coronary artery with unstable angina pectoris (4) Afib Current Visit: No Status: Chronic H/o PAF and atrial flutter. Currently NSR. No PAF seen during stay. Stopped taking xarelto 2 months ago due to nose bleeds. States he is not interested in restarting xarelto and declines coumadin due to family member having an adverse event on coumadin. Continue asa. Qualifiers: Atrial fibrillation type: paroxysmal Qualified Code(s): I48.0 - Paroxysmal atrial fibrillation Discussion w patient/family: The assessment and plan as outlined above was discussed with the patient and/or family members who expressed understanding and agreement. All questions were answered. Thank you for involving us in the care of your patient. Please call with any questions. Subjective Principal diagnosis: SVT, chest pain Interval history: Mr. Parsons c/o constipation today. Denies chest pain. Nurses notified to give patient a laxative. Cardiology called back due to recurrent SVT. Objective Vital Signs, Last 4 Hours Temp Pulse Resp BP Pulse Ox 03/14/17 11:20 98.5 F 86 20 141/76 97 General: Conversant, No Apparent Distress, Other (pale,genralized weakness) HEENT: Atraumatic, Normocephaly, Mucus Membranes Moist Neck: No JVD, Normal carotid pulses Cardiac: Reg Rate and Rhythm, Normal S1 and S2, No Murmur Lungs: Normal Breath Sounds, No Wheeze, Rales, Rhonchi Neuro: Alert and responsive, No focal deficits noted Abdomen: Soft, Non-Tender Skin: No rashes noted on visualized skin Musculoskeletal: No Chest Wall Tenderness Extremities: No Clubbing, No Cyanosis, No Edema, Normal Pulses Results 03/14/17 06:26 03/14/17 06:26 Lab Results 03/13/17 03/13/17 03/14/17 14:20 17:22 06:26 WBC 10.7 Hgb 9.5 L Hct 29.8 L Plt Count 198 APTT 58.0 H Sodium 137 Potassium 4.2 Chloride 108 Carbon Dioxide 16 L BUN 19 Creatinine 1.49 H Glucose 187 H Calcium 8.1 L Magnesium 1.7 Total Bilirubin AST ALT Alkaline Phosphatase TSH 4.605 03/14/17 06:26 WBC Hgb Hct Plt Count APTT Sodium 133 L Potassium 4.3 Chloride 104 Carbon Dioxide 19 BUN 17 Creatinine 1.38 H Glucose 176 H Calcium 8.3 L Magnesium 1.9 Total Bilirubin 0.6 AST 163 H ALT 77 H Alkaline Phosphatase 86 TSH - Imaging and Cardiology Echo: report reviewed - EKG Interpretation EKG results cardiology: personally reviewed Consult Discharge Plan - Plan Referrals: [facility]ani, Cardiology [Other] (Office will call patient at home with follow up appointment) Rozina Villeda MD [Primary Care Provider] - 03/28/17 1:30 pm
[2017-03-14] MEDS: Menthol 9.1 MG LOZENGE PO PRN (15:05)
--- NOTE | 2017-03-14 18:38 | Electrocardiograph Report ---
[place] [id number] Test Date: 2017-03-12 Pat Name: Lauro Parsons Department: 115 Room: 2N06 Gender: M [employer] Internship: : 1935 Requested By: Fabby Modi Order Number: [id number] Reading MD: Jj Sandhu DO Measurements Intervals [place] Rate: 120 P: 44 MS: 159 QRS: -23 QRSD: 86 T: 19 QT: 324 QTc: 395 Interpretive Statements SINUS TACHYCARDIA WITH OCCASIONAL VENTRICULAR PREMATURE COMPLEXES BORDERLINE LEFT AXIS DEVIATION Electronically Signed On 03-14-2017 18:36:23 EST by Jj Sandhu DO
--- NOTE | 2017-03-14 19:19 | Electrocardiograph Report ---
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
--- NOTE | 2017-03-14 19:21 | Electrocardiograph Report ---
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
[2017-03-14] MEDS: Insulin DETEMIR 100 UNIT/ML X5UNITS SQ SCH (20:14)
[2017-03-15 03:36] LABS: Basophils % 0.2 %; Eosinophils # 0.1 K/mcL (0.0-0.6); Eosinophils % 0.9 %; Hematocrit 29.7 % (37.5-50.1); Hemoglobin 9.6 g/dL (12.9-16.9); Immature Granulocytes % 0.4 % (0-4); Lymphocytes # 1.5 K/mcL (0.6-4.6); Lymphocytes % 11.7 %; Mean Corpuscular HGB Conc 32.3 g/dL (31.6-35.5); Mean Corpuscular Hemoglobin 27.7 pg (28.0-33.3); Mean Corpuscular Volume 85.6 fL (83.0-100.0); Monocytes # 1.2 K/mcL (0.0-1.3); Monocytes % 9.3 %; Neutrophils # 9.6 K/mcL (1.6-8.9); Platelet Count 207 K/mcL (140-400); Red Blood Count 3.47 M/mcL (4.19-5.50); Red Cell Distribution Width 13.8 % (11.5-14.5); Segmented Neutrophils % 77.5 %
[2017-03-15 03:54] LABS: BUN/Creatinine Ratio 11 (6-26); Blood Urea Nitrogen 15 mg/dL (8-26); Calcium 8.8 mg/dL (8.6-10.8); Carbon Dioxide 20 mEq/L (19-29); Chloride 104 mEq/L (98-109); Glucose 90 mg/dL (70-99); Osmolality,Calculated 282 (280-300); Potassium 4.1 mEq/L (3.5-4.5); Sodium 136 mEq/L (136-145); eGFR For African Americans > 60 (> 60); eGFR For Non-African Americans 50 (> 60)
[2017-03-15] MEDS: Ipratropium/Albuterol Neb 3 ML IH SCH ×4 (05:07→22:34)
[2017-03-15] MEDS: *HR* Heparin 5,000 UNIT/ML VIAL SQ SCH ×3 (05:46→20:50)
[2017-03-15] MEDS: Benzonatate 100 MG CAPSULE PO PRN ×2 (05:47→15:43)
[2017-03-15] MEDS: Insulin LISPRO 300 UNITS/3 ML VIAL SQ SCH ×7 (08:13→20:51)
--- NOTE | 2017-03-15 08:21 | Event Note ---
Date of Encounter: 03/15/17 Time of Encounter: 08:19 - Cardiology Event Note Telemetry reviewed with average HR previous 12 hours noted to be 100, sinus rhythm. Short runs of atrial tachycardia noted. No SVT appreciated over night. Cardiology will sign off and will follow in outpatient setting. Follow up set.
--- NOTE | 2017-03-15 08:29 | Discharge Summary ---
<Merry Evangelista - Last Filed: 03/15/17 11:06> Date of Encounter: 03/15/17 Time of Encounter: 08:27 - Discharge Diagnosis (1) Sepsis Priority: Primary Status: Resolved Qualifiers: Sepsis type: sepsis due to unspecified organism Qualified Code(s): A41.9 - Sepsis, unspecified organism (2) Pneumonia Priority: Primary Status: Acute Qualifiers: Pneumonia type: aspiration pneumonia Laterality: unspecified laterality Lung location: unspecified part of lung (3) SVT (supraventricular tachycardia) Priority: Primary Status: Acute (4) Unstable angina Priority: Secondary Status: Acute (5) Diabetes Priority: Secondary Status: Chronic Qualifiers: Diabetes mellitus type: type 2 Diabetes mellitus complication status: with kidney complications Diabetes mellitus complication detail: with chronic kidney disease 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 insulin use: with halfway use Chronic kidney disease stage: stage 3 (moderate) Qualified Code(s): E11.22 - Type 2 diabetes mellitus with diabetic chronic kidney disease; N18.3 - Chronic kidney disease, stage 3 (moderate); N18.3 - Chronic kidney disease, stage 3 ( moderate); Z79.4 - correction (current) use of insulin; 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; Z79.4 - correction (current) use of insulin; Z79.4 - correction (current) use of insulin (6) CKD stage 3 due to type 2 diabetes mellitus Priority: Secondary Status: Chronic (7) Hypothyroidism Priority: Secondary Status: Chronic Qualifiers: Hypothyroidism type: acquired Qualified Code(s): E03.9 - Hypothyroidism, unspecified (8) DVT prophylaxis Priority: Secondary Status: Acute (9) Prostate cancer metastatic to bone Priority: Secondary Status: Chronic - Discharge Medications Prescriptions: Metoprolol [Lopressor] 100 mg PO BID #60 tablet Home Medications: Insulin ASPART [NovoLOG] 5 unit SQ TID MDD Sliding Scale 01/18/15 [History] Insulin Glargine,Hum.rec.anlog [Toujeo Solostar] 15 unit SQ HS 03/03/16 [History ] L. Acidophilus/Bifid. Animalis [One-A-Day Trubiotics Capsule] 1 each PO DAILY [History] Lutein 20 mg PO DAILY 04/17/16 [History] Cyanocobalamin (B-12) [Vitamin B12] 1,000 mcg IM QMONTH 01/01/17 [History] [place]-3/Dha/Epa/Fish Oil [Fish Oil 1,000 mg Softgel] 1 each PO DAILY 01/09/17 [ History] Enzalutamide [Xtandi] 120 mg PO HS #90 capsule 02/16/17 [Rx] Mv-Mn/FA/Lycopene/Lut/Hb#178 [Nirav Multivit For Men Caplet] 1 each PO DAILY [History] Promethazine [Phenergan] 25 mg PO Q6HR PRN #30 tablet 03/06/17 [Rx] predniSONE [PredniSONE] 5 mg PO BID #60 tablet 03/06/17 [Rx] Amiodarone [Cordarone] 400 mg PO BID tablet 03/16/17 [Rx] Amoxicillin/Clavulanate [Augmentin] 875 mg PO BIDWM #0 tablet 03/16/17 [Rx] Metoprolol [Lopressor] 100 mg PO BID #60 tablet 03/16/17 [Rx] Tamsulosin [Flomax] 0.4 mg PO HS #0 capsule 03/16/17 [Rx] predniSONE [PredniSONE] 40 mg PO DAILY tablet 03/16/17 [Rx] Allergies/Adverse Reactions: 3 Allergy/AdvReac Type Severity Reaction Status Date / Time diphenhydramine AdvReac Shakiness Verified 03/12/17 08:42 Procedures/tests Complete & Pending: Procedures Performed prior 72 hours Category Date Time Status ECG 12 lead ECG [ECG] Routine Y 03/13/17 16:59 Completed ECG 12 lead ECG [ECG] Routine Y 03/13/17 17:12 Completed EKG [ECG 12 lead ECG] [ECG] Stat Y 03/12/17 23:44 Completed EV echocardiogram Routine Y 03/12/17 16:25 Completed Date of admission: 03/11/17 22:33 Primary care physician: Rozina Aguirre Consults: 03/11/17 22:52 Consult to Occupational Therapy [CONS] Routine Comment: Evaluate, develop and implement POC Reason for Consult: ambulate and assess Consult to Physical Therapy [CONS] Routine Comment: Evaluate, develop and implement POC Reason for Consult: ambulate assess for placement need 03/12/17 15:09 Consult to Cardiology [CONS] Stat Comment: Consulting Provider: Cardiology [facility] Reason for Consult: Acute SVT, CP Call Completed: Yes 03/14/17 08:39 Consult to Cardiology [CONS] Routine Comment: Consulting Provider: [place] Mohr Reason for Consult: patient back in SVT Call Completed: Yes Discharging clinician: Merry Evangelista Anticipated date of discharge: 03/15/17 - Patient Status Disposition: Transfer Intermediate Care Fac Condition: Fair Overall status at discharge: patient is progressing back to baseline (df) - Discharge Instructions Instructions: Heart Failure (DC), Diabetes Mellitus Type 2 in Adults (DC), Pneumonia (DC) Follow Up With: Fani, Cardiology [Other] (Office will call patient at home with follow up appointment) Cuco Willams MD [Partnered Physician] - 03/20/17 8:00 am Rozina Villeda MD [Primary Care Provider] - 03/28/17 1:30 pm Additional Instructions: Follow up with PCP within 1 week of discharge. Follow up with cardiology and oncology. Take all meds as prescribed and return to emergency room if symptoms return. - Diet and Activity Activity: increase activity as tolerated Diet: diabetic diet, low fat, low cholesterol Hospital course: Mr. Parsons is a 81 year old male - Time Spent with Patient Total time spent providing and/or coordinating discharge services: - Constitutional Vitals: Temp Pulse Resp BP Pulse Ox 96.8 F L 105 18 148/70 93 03/15/17 07:43 03/15/17 07:43 03/15/17 07:43 03/15/17 07:43 03/15/17 07:43 General appearance: Present: A&O X 3, no acute distress, answers questions appropriately - Head Head exam: Present: atraumatic, normocephalic - Eye Eye exam: Present: EOMI - Neck Neck exam general surgery: Present: full ROM, supple - Respiratory Respiratory exam: Present: rales (bibasilar). Absent: rhonchi, wheezes, tachypnea - Cardiovascular Cardiovascular exam: Present: +S1, +S2. Absent: diastolic murmur, systolic murmur Additional comments: Regular rhythm. HR in low 100s - GI/Abdominal GI/Abdominal exam: Present: distended, firm, normal bowel sounds. Absent: rigid - Neurological Exam Neurological exam: Present: alert, oriented X3, no focal deficits. Absent: facial droop, speech deficit (d) <Mike Henderson A - Last Filed: 03/16/17 18:04> Date of Encounter: 03/16/17 - Discharge Diagnosis (1) SVT (supraventricular tachycardia) Status: Acute (2) Pneumonia Status: Acute Qualifiers: Pneumonia type: aspiration pneumonia Aspiration pneumonia type: unspecified Laterality: unspecified laterality Lung location: unspecified part of lung Qualified Code(s): J69.0 - Pneumonitis due to inhalation of food and vomit (3) Sepsis Status: Resolved Qualifiers: Sepsis type: sepsis due to unspecified organism Qualified Code(s): A41.9 - Sepsis, unspecified organism (4) Prostate cancer metastatic to bone Status: Chronic (5) Unstable angina Status: Acute (6) CKD stage 3 due to type 2 diabetes mellitus Status: Chronic (7) CAD (coronary artery disease) Priority: Secondary Status: Chronic Qualifiers: Coronary Disease-Associated Artery/Lesion type: [place] artery [place] vs. transplanted heart: [place] heart Associated angina: with unstable angina Qualified Code(s): I25.110 - Atherosclerotic heart disease of [place] coronary artery with unstable angina pectoris (8) Hypothyroidism Status: Chronic Qualifiers: Hypothyroidism type: acquired Qualified Code(s): E03.9 - Hypothyroidism, unspecified (9) Chronic diastolic (congestive) heart failure Priority: Secondary Status: Chronic Procedures/tests Complete & Pending: Procedures Performed prior 72 hours Category Date Time Status VQ Scan [NM pul vent and perfuse] [NM] Routine Exams 03/16/17 06:00 Completed ECG 12 lead ECG [ECG] Routine Y 03/13/17 17:12 Completed ECG 12 lead ECG [ECG] Routine Y 03/15/17 11:26 Completed EKG [ECG 12 lead ECG] [ECG] Stat Y 03/16/17 00:25 Completed EKG [ECG 12 lead ECG] [ECG] Stat Y 03/16/17 05:20 Completed EKG [ECG 12 lead ECG] [ECG] Stat Y 03/16/17 05:35 Completed Date of admission: 03/11/17 22:33 Primary care physician: Rozina Aguirre Consults: 03/11/17 22:52 Consult to Occupational Therapy [CONS] Routine Comment: Evaluate, develop and implement POC Reason for Consult: ambulate and assess Consult to Physical Therapy [CONS] Routine Comment: Evaluate, develop and implement POC Reason for Consult: ambulate assess for placement need 03/12/17 15:09 Consult to Cardiology [CONS] Stat Comment: Consulting Provider: Cardiology [place] Reason for Consult: Acute SVT, CP Call Completed: Yes 03/14/17 08:39 Consult to Cardiology [CONS] Routine Comment: Consulting Provider: Cardiology [facility] Reason for Consult: patient back in SVT Call Completed: Yes 03/15/17 11:43 Consult to Oncology [CONS] Routine Consulting Provider: On[facility] [place] Reason for Consult: staging of metastatic prostate cancer for possible cardiac intervention Time Notified: 11:47 Call Completed: Yes 03/15/17 12:55 Consult to Electrophysiology (EP) [CONS] Routine Consulting Provider: Electrophysiology [facility] Reason for Consult: recurrent SVT Call Completed: Yes 03/16/17 10:59 Consult to Palliative Care [CONS] Routine Comment: Consulting Provider: Palliative Care [facility] Reason for Consult: discuss options for hospice/palliative Call Completed: Yes Hospital course: Mr. Parsons is a 81 year old male - Time Spent with Patient Total time spent providing and/or coordinating discharge services: 38min - Constitutional Vitals: Temp Pulse Resp BP Pulse Ox 98.6 F 83 16 129/76 94 03/16/17 16:12 03/16/17 16:12 03/16/17 16:12 03/16/17 16:12 03/16/17 16:12 - Attending Attestation I examined this patient and my medical decision-making was reviewed with the Resident Physician on 03/16/17. I agree with the documented findings, disposition and treatment plan as described except to the extent set forth below. Mr Parsons has been admitted for unstable angina and pneumonia. He has had multiple episodes of SVT. He is going to be transferred to [facility] for another opinion per family request. Exam Alert. Comfortable Mucus membranes dry Heart reg No wheeze Plan D/C to [facility] per family request.
[2017-03-15] MEDS: Famotidine 20 MG TABLET PO SCH (09:42)
[2017-03-15] MEDS: Aspirin Enteric Coated 81 MG Tablet PO SCH (09:42)
[2017-03-15] MEDS: predniSONE 5 MG TABLET PO SCH (09:42)
[2017-03-15] MEDS: Piperacillin/Tazobactam 3.375 GM/200 ML BAG IVPB SCH ×2 (09:43→15:18)
[2017-03-15] MEDS: GuaiFENesin/Codeine Oral Soln 5 ML UDC PO PRN (10:39)
[2017-03-15] MEDS ORDERED: *HR* Metoprolol 5 MG/5 ML VIAL IVP STA (11:10)
[2017-03-15] MEDS ORDERED: *HR* Metoprolol 5 MG/5 ML VIAL IVP ONE (11:11)
[2017-03-15] MEDS ORDERED: *HR* Adenosine 6 MG/2 ML VIAL IVP ONE ×3 (11:16→11:53)
--- NOTE | 2017-03-15 13:06 | Electrophysiology Consult Note ---
<Erasmo Ward - Last Filed: 03/15/17 15:12> Date of Encounter: 03/15/17 Time of Encounter: 13:00 Assessment and Plan (1) Pneumonia Current Visit: Yes Status: Acute Per EP: Management per primary service. On antibiotics. CT negative for PE. Qualifiers: Pneumonia type: aspiration pneumonia Laterality: unspecified laterality Lung location: unspecified part of lung Qualified Code(s): J69.0 - Pneumonitis due to inhalation of food and vomit (2) SVT (supraventricular tachycardia) Current Visit: No Status: Acute Per EP: Patient with acute SVT x 2 this admission that resolved with adenosine both times. H/o SVT seen on holter monitor previously. Likely exacerbated by acute illness-- pneumonia. Of note, history of prostate CA with suspected new metastatis to liver and spine. Hx of Failure to Thrive. Had recurrent SVT again today. Currently in sinus rhythm. On Lopressor-- increased to 50 mg TID yesterday. Current heart rate 70s to 80s. Systolic blood pressures 130s to 150s. Per review of Dr. Winston Andrade's last note, recs were to add calcium channel jesus (had discussed possible ablation, but deemed low likelihood of success). ECG and rhythm strips reviewed with Dr. Winston Andrade, appears to be atrial tach with 1:1 conduction. We'll start amiodarone 200 mg by mouth daily. Discussed with Dr. Andrade, aware of liver mets and elevated LFTs. Patient with also history of atrial fibrillation, atrial flutter, TIA. Appears to have previously been on anticoagulation of Xarelto-- developed scleral hemorrhage and had multiple epistaxis epsiodes. fairly adamant against Coumadin-- "family member from Coumadin". Patient has declined anticoagulation currently and on aspirin only. Patient and family aware of increased stroke risk. Has anemia, H&H stable, but downward trend. Oncology consult pending-- reports potential chemotherapy. Ideally, would recommend long-term AC. Can re-address prior to DC. Would appreciate oncology recs from their standpoint. (3) Elevated troponin Current Visit: No Status: Acute Per Cardiology: Very mild troponin 0.04, initially negative and subsequently negative. Chest pain-free currently. Suspected demand ischemia in the setting of pneumonia and SVT. Echo showed EF preserved. (4) CAD (coronary artery disease) Current Visit: No Status: Chronic Per EP: H/o multiple PCI. Continue asa, statin, and bb. Last [facility] in 2015 showed moderate non-obstructive three vessel CAD. TTE shows EF 60%. Mild AR. No SWMA. Qualifiers: Coronary Disease-Associated Artery/Lesion type: [place] artery [place] vs. transplanted heart: [place] heart Associated angina: with unstable angina Qualified Code(s): I25.110 - Atherosclerotic heart disease of [place] coronary artery with unstable angina pectoris (5) Prostate cancer metastatic to bone Current Visit: Yes Status: Chronic Per EP: Management per primary service. Oncology cosnult pending. Now with apparent mets to liver and spine. Consider palliative care consult to address code status /longterm prognosis. Discussion w patient/family: The assessment and plan as outlined above was discussed with the patient and/or family members who expressed understanding and agreement. All questions were answered. Thank you for involving us in the care of your patient. Please call with any questions. History of Present Illness Consult date: 03/15/17 Requesting physician: Zane Juan Consult reason: Recurrent SVT in setting of Pneumonia Chief complaint: SOB, Rapid HR History of present illness: Mr. Parsons is a 81 year old male with a relevant PMH of CAD s/p previous PCI , SVT, PAF atrial flutter, DM2, HTN, HLD, TIAs, Dementia, CKD, and prostate cancer with liver and bone mets. He was transferred from [facility] for possible pneumonia and failure to thrive. Reported to not have improved after IV antibiotics. Cardiology consulted for occurrence of SVT and chest discomfort. Cardiology records reviewed and patient converted to SR with Adenosine. Echo with preserved EF. Patient resumed on plavix and declined AC. Patient was apparently prepping for DC and had recurrence of SVT. EP consult now placed. Has seen Dr. Winston Andrade in the past-- last note reviewed from 2015 and at that time appeared to have been on Xarelto, asa, BB. Ablation was briefly discussed, but ultimately recs for addition of CCB, however patient preferred to monitor. Patient now seen in sinus rhythm with chest pain and palpitation symptoms resolved. He reports initial presentation due to worsening pneumonia and short of breath. He denies any fever, chills, nausea, vomiting, diarrhea. Denies any bleeding or blood loss. Past Med Surg Social Fam HX - Past Medical History Attestation: Yes The following information was validated with the patient. Source: patient, old records reviewed, obtained from family Medical history: arthritis, cancer, coronary artery disease, diabetes, malignancy, myocardial infarction, TIA Psychiatric history: no psych history - Past Surgical History Surgical History: angioplasty/stent, prostatectomy - Social History Smoking Status: Former smoker Smokeless Tobacco Status: No Alcohol use: none Drug use: none - Family History Mother Living Status: Hx Family Cardiac Disorders: No Hx Family Respiratory Disorders: No Hx Family Cancer: Yes Hx Family GI Disorders: No Hx Family Genitourinary Disorders: Yes Hx Family Endocrine Disorder: No Hx Family Neuromuscular Disorders: No Hx Family Neurologic Disorders: No Hx Family HEENT Disorders: No Hx Family Autoimmune Disorders: No Hx Family Medical Disorders: Yes Medications and Allergies Insulin ASPART [NovoLOG] 5 unit SQ TID MDD Sliding Scale 01/18/15 [History] Insulin Glargine,Hum.rec.anlog [Toujeo Solostar] 15 unit SQ HS 03/03/16 [History ] L. Acidophilus/Bifid. Animalis [One-A-Day Trubiotics Capsule] 1 each PO DAILY [History] Lutein 20 mg PO DAILY 04/17/16 [History] Cyanocobalamin (B-12) [Vitamin B12] 1,000 mcg IM QMONTH 01/01/17 [History] [place]horn-3/Dha/Epa/Fish Oil [Fish Oil 1,000 mg Softgel] 1 each PO DAILY 01/09/17 [ History] Enzalutamide [Xtandi] 120 mg PO HS #90 capsule 02/16/17 [Rx] Mv-Mn/FA/Lycopene/Lut/Hb#178 [Nirav Multivit For Men Caplet] 1 each PO DAILY [History] Promethazine [Phenergan] 25 mg PO Q6HR PRN #30 tablet 03/06/17 [Rx] predniSONE [PredniSONE] 5 mg PO BID #60 tablet 03/06/17 [Rx] Amoxicillin/Clavulanate [Augmentin] 875 mg PO BIDWM #14 tablet 03/15/17 [Rx] Metoprolol [Lopressor] 50 mg PO TID #90 tablet 03/15/17 [Rx] 3 Allergy/AdvReac Type Severity Reaction Status Date / Time diphenhydramine AdvReac Shakiness Verified 03/12/17 08:42 All Systems Review: A 10-system review of systems was performed and is negative for pertinent findings except as documented above in the HPI. - Constitutional Constitutional: fatigue - Cardiovascular Cardiovascular: as per HPI, chest pain at rest, dyspnea at rest, dyspnea on exertion, irregular heart rhythm, rapid heart rate - Musculoskeletal Musculoskeletal: other (Abdominal and rib cage soreness with coughing) Physical Examination Vital Signs, Last 4 Hours Temp Pulse Resp BP Pulse Ox 03/15/17 12:00 88 16 145/73 03/15/17 11:49 99.4 F 91 18 139/67 98 03/15/17 11:45 84 16 139/67 03/15/17 11:31 96 18 156/76 96 03/15/17 11:19 172 152/85 General: Conversant, Other (pale) HEENT: Atraumatic, Normocephaly Neck: No JVD, Normal carotid pulses Cardiac: Reg Rate and Rhythm, Normal S1 and S2, No Murmur Lungs: Other (Diminished breath sounds throughout, respirations labored at rest) Neuro: Alert and responsive, No focal deficits noted Abdomen: Soft, Non-Tender Skin: No rashes noted on visualized skin Musculoskeletal: Other (chest soreness with coughing) Extremities: Other (+1 nonpitting bilateral LE edema) Results 03/15/17 03:09 03/15/17 03:09 Lab Results Laboratory Tests 03/12/17 03/12/17 03/12/17 03:59 03:59 15:17 Hgb 10.4 L Hct 32.2 L INR Creatinine 1.43 H Est GFR (Non-Af Amer) 47 L Magnesium AST ALT Troponin I 0.02 TSH 03/12/17 03/12/17 03/13/17 15:58 22:30 05:21 Hgb Hct INR 1.3 Creatinine Est GFR (Non-Af Amer) Magnesium AST ALT Troponin I 0.04 H* 0.03 TSH 03/13/17 03/14/17 03/15/17 17:22 06:26 03:09 Hgb 9.6 L Hct 29.7 L INR Creatinine Est GFR (Non-Af Amer) Magnesium 1.9 AST 163 H ALT 77 H Troponin I TSH 4.605 03/15/17 03:09 Hgb Hct INR Creatinine 1.37 H Est GFR (Non-Af Amer) 50 L Magnesium AST ALT Troponin I TSH ITS Impressions Chest CTA 03/12/17 00:00 IMPRESSION: 1. No definite scan evidence for pulmonary embolus on a study limited by motion artifact. 2. No acute airspace disease. 3. New sclerotic lesion in T11, presumably a metastasis. D/ / Jacques Smith MD / Jacques Smith MD Interpreting Provider: Jacques Smith MD Chest X-Ray 03/12/17 15:44 IMPRESSION: No acute cardiopulmonary disease. D/ / Florencio Adams MD / Florencio Adams MD Interpreting Provider: Florencio Adams MD Echocardiogram 03/12/17 16:25 Impressions: LVEF 60%. Normal LV chamber size, wall thickness and function. Mild left ventricular diastolic dysfunction. Normal right ventricular structure and function. Mild aortic regurgitation. No evidence of pulmonary hypertension. Findings: Study Quality * Technically adequate exam. ECG Findings * Normal sinus rhythm. Left Ventricle * LVEF 60%. * Normal LV chamber size, wall thickness and function. * Mild left ventricular diastolic dysfunction. Right Ventricle * Normal right ventricular structure and function. Left Atrium * Normal left atrial size. Right Atrium * Normal right atrial size. Interatrial Septum * Interatrial septum not well evaluated. Aortic Valve * Trileaflet aortic valve. * Mild aortic regurgitation. * No aortic stenosis. Mitral Valve * Normal mitral valve structure and function. * No mitral regurgitation. * No mitral stenosis. Tricuspid Valve * Normal tricuspid valve structure and function. * Trace tricuspid regurgitation. * No evidence of pulmonary hypertension. Pulmonic Valve * Normal pulmonic valve structure and function. * Trace pulmonic regurgitation. Aorta * Normally sized aortic root. Pericardium * The pericardium appears normal. 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 Function appears {function{. IVC * The IVC is not well evaluated. Pulmonary Artery * Normal visualized portions of the main pulmonary artery. Active Medications Hydrocodone Bitart/Acetaminophen ([place] 5-325 Mg) 1 tab PO Q4HR PRN PRN Reason: Moderate Pain Stop: 09/11/17 11:29 Last Admin: 03/14/17 08:16 Dose: 1 tab Albuterol/Ipratropium (Duoneb) 3 ml IH QIDR DEBORAH Stop: 09/11/17 05:01 Last Admin: 03/15/17 09:51 Dose: 3 ml Albuterol/Ipratropium (Duoneb) 3 ml IH [id number] PRN PRN Reason: Shortness Of Breath/Wheezing Stop: 09/10/17 22:37 Aspirin (Aspirin Ec) 81 mg PO DAILY DEBORAH Stop: 09/12/17 09:01 Last Admin: 03/15/17 09:42 Dose: 81 mg Benzonatate (Tessalon) 100 mg PO TID PRN PRN Reason: Cough Stop: 09/10/17 22:40 Last Admin: 03/15/17 05:47 Dose: 100 mg Clopidogrel Bisulfate (Plavix) 75 mg PO DAILY [facility] Stop: 09/12/17 13:16 Last Admin: 03/15/17 09:42 Dose: 75 mg Dextrose/Water (Dextrose 50% (Syg)) 25 ml IVP AD PRN PRN Reason: Hypoglycemia Stop: 09/10/17 22:53 Docusate Sodium (Colace) 100 mg PO BID PRN PRN Reason: Constipation Stop: 09/10/17 22:34 Last Admin: 03/15/17 05:47 Dose: 100 mg Famotidine (Pepcid) 20 mg PO DAILY DEBORAH Stop: 09/11/17 09:01 Last Admin: 03/15/17 09:42 Dose: 20 mg Glucagon (Glucagen) 1 mg IM ONCE PRN PRN Reason: Hypoglycemia Stop: 09/10/17 22:53 Glucose (Gluctose) 15 gm PO ONCE PRN PRN Reason: Hypoglycemia Stop: 09/10/17 22:53 Glucose (Gluctose) 30 gm PO ONCE PRN PRN Reason: Hypoglycemia Stop: 09/10/17 22:53 Guaifenesin (Mucinex) 600 mg PO BID PRN PRN Reason: Congestion Stop: 09/10/17 22:40 Last Admin: 03/15/17 05:46 Dose: 600 mg Guaifenesin/Codeine Phosphate (Robitussin W/Codeine) 10 ml PO Q6HR PRN; Protocol PRN Reason: Cough Stop: 09/11/17 11:30 Last Admin: 03/15/17 10:39 Dose: 10 ml Heparin Sodium (Porcine) (Heparin) 5,000 unit SQ Q8HCO [facility] Stop: 09/13/17 08:01 Last Admin: 03/15/17 05:46 Dose: 5,000 unit Dextrose (Dextrose 5%) 1,000 mls @ 100 mls/hr IVC .Q10H PRN PRN Reason: HYPOGLYCEMIA Stop: 09/10/17 22:53 Piperacillin Sod/Tazobactam Sod (Zosyn Premix 3.375 Gm/200 Ml) 3.375 gm in 200 mls @ 50 mls/hr IVPB Q8HR [facility] Stop: 09/11/17 16:01 Last Admin: 03/15/17 09:43 Dose: 50 mls/hr Insulin Detemir (Levemir) 20 unit SQ HS [facility] Stop: 09/10/17 23:01 Last Admin: 03/14/17 20:14 Dose: 20 unit Insulin Human Lispro (Humalog) 0 units SQ TIDAC [facility] PRN Reason: Protocol Stop: 09/11/17 07:31 Last Admin: 03/15/17 12:07 Dose: 6 units Insulin Human Lispro (Humalog) 0 units SQ [facility] PRN Reason: Protocol Stop: 09/11/17 21:01 Last Admin: 03/14/17 20:12 Dose: 2 units Insulin Human Lispro (Humalog) 3 units SQ TIDWM [facility] Stop: 09/13/17 17:01 Last Admin: 03/15/17 12:07 Dose: 3 units Menthol (Cough Drops) 9.1 mg PO Q2H PRN PRN Reason: Cough Stop: 09/13/17 14:49 Last Admin: 03/14/17 15:05 Dose: 9.1 mg Metoprolol Tartrate (Lopressor) 50 mg PO TID [facility] Stop: 09/13/17 15:01 Last Admin: 03/15/17 09:43 Dose: 50 mg Morphine Sulfate (Morphine Sulfate) 2 mg IVP Q4HR PRN PRN Reason: Severe Pain Stop: 09/11/17 14:59 Last Admin: 03/13/17 17:16 Dose: 2 mg Naloxone HCl (Narcan) 0.4 mg IVP Q2MIN PRN PRN Reason: Opioid Reversal Stop: 09/10/17 22:38 Nitroglycerin (Nitroglycerin) 0.4 mg SL Q5MIN PRN PRN Reason: Chest Pain Stop: 09/11/17 15:24 Prednisone (Prednisone) 5 mg PO DAILY DEBORAH Stop: 09/11/17 09:01 Last Admin: 03/15/17 09:42 Dose: 5 mg Promethazine HCl (Phenergan) 25 mg PO Q6HR PRN PRN Reason: Nausea Stop: 09/10/17 22:32 Last Admin: 03/14/17 20:10 Dose: 25 mg - Imaging and Cardiology Chest Xray: report reviewed Echo: report reviewed - EKG Interpretation EKG results cardiology: other (Telemetry reviewed with average heart rate is 24 hours 100, SVT noted, currently sinus rhythm in the 70s) Consult Discharge Plan - Plan Instructions: Heart Failure (DC), Diabetes Mellitus Type 2 in Adults (DC), Pneumonia (DC) Additional Instructions: Follow up with PCP within 1 week of discharge. Follow up with cardiology and oncology. Take all meds as prescribed and return to emergency room if symptoms return. Referrals: [facility], Cardiology [Other] (Office will call patient at home with follow up appointment) Cuco Willams MD [Partnered Physician] - 03/20/17 8:00 am Rozina Villeda MD [Primary Care Provider] - 03/28/17 1:30 pm Prescriptions: Amoxicillin/Clavulanate [Augmentin] 875 mg PO BIDWM #14 tablet Metoprolol [Lopressor] 50 mg PO TID #90 tablet <Winston Andrade - Last Filed: 03/15/17 15:56> Date of Encounter: 03/15/17 - Attending Attestation I have personally performed a face to face evaluation on this patient. I have reviewed and agree with the care plan. History and Exam by me shows: 81 yo with multiple medical problems presents with recurrent tachycardia. EKGs appear to be c/w PAT. Would recommend medical mgmt. Will start low dose amio. Assessment and Plan Discussion w patient/family: The assessment and plan as outlined above was discussed with the patient and/or family members who expressed understanding and agreement. All questions were answered. Thank you for involving us in the care of your patient. Please call with any questions. History of Present Illness History of present illness: Mr. Parsons is a 81 year old male All Systems Review: A 10-system review of systems was performed and is negative for pertinent findings except as documented above in the HPI. Physical Examination Vital Signs, Last 4 Hours Pulse Resp BP 03/15/17 15:25 77 16 148/77 03/15/17 13:16 84 154/79 03/15/17 12:00 88 16 145/73 Results 03/15/17 03:09 03/15/17 03:09 Lab Results 03/15/17 03/15/17 03:09 03:09 WBC 12.4 H Hgb 9.6 L Hct 29.7 L Plt Count 207 Sodium 136 Potassium 4.1 Chloride 104 Carbon Dioxide 20 BUN 15 Creatinine 1.37 H Glucose 90 Calcium 8.8
--- NOTE | 2017-03-15 15:17 | Event Note ---
<Merry Evangelista - Last Filed: 03/15/17 14:57> Date of Encounter: 03/15/17 Time of Encounter: 11:15 Mr. Parsons went into SVT around 11:00, unprovoked. Initial HR in 180s. Patient didn't respond to Lopressor 5mg given IV, HR in 170s. EKG obtained, showed SVT with PVCs. Crash cart brought into patient room and defibrillator pads placed on chest. Continued to show SVT, appropriate respiratory rate, patient in no respiratory distress. During 1st administration of adenosine 6mg IVP the IV infiltrated. New IV placed and 2nd administration of adenosine 6mg IVP was given--BP 133/82, HR 171 , 94% on 2L. Adenosine 12mg IVP given, shortly after administration the patient was in sinus tachycardia. Sinus tachycardia confirmed on EKG. Patient will remain in 2N ICU step down on cardiac monitoring. Dr. Mike Henderson, attending on service, was present and oversaw the entire event. Dr. Juan present and speaking with patient family. Resident physicians present include: Dr. Merry Evangelista, Dr. Bishnu Valenzuela, and Dr. Yeison Duran. <iMke Henderson - Last Filed: 03/15/17 18:46> Date of Encounter: 03/15/17 I was present as above and agree with plan.
--- NOTE | 2017-03-15 15:21 | Internal Med Progress Note ---
<Merry Evangelista - Last Filed: 03/15/17 15:50> Date of Encounter: 03/15/17 Time of Encounter: 09:00 - Assessment and plan (1) Sepsis Current Visit: Yes Status: Resolved Assessment and plan: admitted with sepsis criteria--currently resolved blood cultures negative growth to date WBC improved initially placed on broad spectrum antibiotics that have been de-escalated Plan: Zosyn Day 4--stopped Augmentin 875 mg PO BIDWM starting tomorrow Qualifiers: Sepsis type: sepsis due to unspecified organism Qualified Code(s): A41.9 - Sepsis, unspecified organism (2) Pneumonia Current Visit: Yes Status: Acute Assessment and plan: As above Qualifiers: Pneumonia type: aspiration pneumonia Laterality: unspecified laterality Lung location: unspecified part of lung Qualified Code(s): J69.0 - Pneumonitis due to inhalation of food and vomit (3) SVT (supraventricular tachycardia) Current Visit: No Status: Acute Assessment and plan: Three episodes of SVT, converted to sinus rhythm with adenosine. --EP on board, pending oncology recs, addition of CCB and/or cardiac ablation Plan: Cardiology consult--appreciate recs Lopressor 50mg TID and Amiodarone 200mg PO daily per cardiology (4) Unstable angina Current Visit: Yes Status: Acute Assessment and plan: Intermittent chest pain present for weeks Etiologies include: demand ischemia in setting of SVT and pneumonia, possible worsening of CAD. Echo on 03/12/17 show LVEF 60%; normal LV chamber size, wall thickness, and function; normal RV structure and function; mild aortic regurgitation; no evidence of pulmonary HTN Plan: Continue ASA, statin, and BB (5) Diabetes Current Visit: No Status: Chronic Assessment and plan: on basal insulin with low dose sliding scale ADA diet ACHS accuchecks. Qualifiers: Diabetes mellitus type: type 2 Diabetes mellitus complication status: with kidney complications Diabetes mellitus complication detail: with chronic kidney disease Diabetes mellitus skilled nursing insulin use: with termite treater helper use Chronic kidney disease stage: stage 3 (moderate) Qualified Code(s): E11.22 - Type 2 diabetes mellitus with diabetic chronic kidney disease; N18.3 - Chronic kidney disease, stage 3 (moderate); N18.3 - Chronic kidney disease, stage 3 ( moderate); Z79.4 - FDC (current) use of insulin; Z79.4 - intermediate teacher ( current) use of insulin; Z79.4 - FDC (current) use of insulin; Z79.4 - FDC (current) use of insulin (6) CKD stage 3 due to type 2 diabetes mellitus Current Visit: Yes Status: Chronic Assessment and plan: continue to monitor kidney function currently at baseline. (7) Hypothyroidism Current Visit: No Status: Chronic Assessment and plan: continue synthroid Qualifiers: Hypothyroidism type: acquired Qualified Code(s): E03.9 - Hypothyroidism, unspecified (8) DVT prophylaxis Current Visit: Yes Status: Acute Assessment and plan: heparin SQ (9) Prostate cancer metastatic to bone Current Visit: Yes Status: Chronic Assessment and plan: CTA chest 03/12/17 showed no definite scan evidence for pulmonary embolus on a study limited by motion artifact, no acute airspace disease, new sclerotic lesion in T11, presumably metastasis. sees Dr. Willams outpatient-continue follow up after discharge. - Subjective Interval history: Patient seen and examined this morning at bedside, he was resting comfortably. At this time patient only c/o nausea. - Constitutional Vitals: Temp Pulse Resp BP Pulse Ox 99.4 F 84 16 154/79 98 03/15/17 11:49 03/15/17 13:16 03/15/17 12:00 03/15/17 13:16 03/15/17 11:49 General appearance: Present: A&O X 3, no acute distress, answers questions appropriately - Head Head exam: Present: atraumatic, normocephalic - Eye Eye exam: Present: EOMI - Neck Neck exam general surgery: Present: full ROM, supple - Respiratory Respiratory exam: Present: rales (bibasilar). Absent: rhonchi, wheezes, tachypnea - Cardiovascular Cardiovascular exam: Present: +S1, +S2. Absent: diastolic murmur, systolic murmur Additional comments: Regular rhythm. HR in low 100s. - GI/Abdominal GI/Abdominal exam: Present: distended, firm, normal bowel sounds. Absent: rigid - Neurological Exam Neurological exam: Present: alert, oriented X3, no focal deficits. Absent: speech deficit Internal Medicine: Result - Labs CBC & Chem 7: 03/15/17 03:09 03/15/17 03:09 Labs: Short CBC 03/15/17 Range/Units 03:09 WBC 12.4 H (4.3-11.1) K/mcL Hgb 9.6 L (12.9-16.9) g/dL Hct 29.7 L (37.5-50.1) % Plt Count 207 (140-400) K/mcL Neutrophils # 9.6 H (1.6-8.9) K/mcL BMP 03/15/17 03:09 Sodium 136 Potassium 4.1 Chloride 104 Carbon Dioxide 20 BUN 15 Creatinine 1.37 H Glucose 90 Calcium 8.8 - ABG Interpretation ABG results: PT/INR, D-dimer PT 13.7 Seconds (9.4-12.1) H 03/12/17 15:58 - VTE Documentation of Mechanical Device: Intermittent pneumatic compression device Consult Discharge Plan - Plan Instructions: Heart Failure (DC), Diabetes Mellitus Type 2 in Adults (DC), Pneumonia (DC) Additional Instructions: Follow up with PCP within 1 week of discharge. Follow up with cardiology and oncology. Take all meds as prescribed and return to emergency room if symptoms return. Referrals: [facility], Cardiology [Other] (Office will call patient at home with follow up appointment) Cuco Willams MD [Partnered Physician] - 03/20/17 8:00 am Rozina Villeda MD [Primary Care Provider] - 03/28/17 1:30 pm Prescriptions: Amoxicillin/Clavulanate [Augmentin] 875 mg PO BIDWM #14 tablet Metoprolol [Lopressor] 50 mg PO TID #90 tablet <Mike Henderson - Last Filed: 03/15/17 18:45> Date of Encounter: 03/15/17 - Assessment and plan (1) SVT (supraventricular tachycardia) Current Visit: No Status: Acute (2) Pneumonia Current Visit: Yes Status: Acute Qualifiers: Pneumonia type: aspiration pneumonia Laterality: unspecified laterality Lung location: unspecified part of lung Qualified Code(s): J69.0 - Pneumonitis due to inhalation of food and vomit (3) Sepsis Current Visit: Yes Status: Resolved Qualifiers: Sepsis type: sepsis due to unspecified organism Qualified Code(s): A41.9 - Sepsis, unspecified organism (4) Prostate cancer metastatic to bone Current Visit: Yes Status: Chronic (5) Unstable angina Current Visit: Yes Status: Acute (6) CKD stage 3 due to type 2 diabetes mellitus Current Visit: Yes Status: Chronic (7) CAD (coronary artery disease) Current Visit: No Status: Chronic Qualifiers: Coronary Disease-Associated Artery/Lesion type: [place] artery [place] vs. transplanted heart: m[place]ath heart Associated angina: with unstable angina Qualified Code(s): I25.110 - Atherosclerotic heart disease of [place] coronary artery with unstable angina pectoris (8) Hypothyroidism Current Visit: No Status: Chronic Qualifiers: Hypothyroidism type: acquired Qualified Code(s): E03.9 - Hypothyroidism, unspecified (9) Chronic diastolic (congestive) heart failure Current Visit: Yes Status: Chronic - Constitutional Vitals: Temp Pulse Resp BP Pulse Ox 97.8 F 79 17 119/70 96 03/15/17 16:30 03/15/17 16:30 03/15/17 16:30 03/15/17 16:30 03/15/17 16:30 Internal Medicine: Result - Labs CBC & Chem 7: 03/15/17 03:09 03/15/17 03:09 Labs: Short CBC 03/15/17 Range/Units 03:09 WBC 12.4 H (4.3-11.1) K/mcL Hgb 9.6 L (12.9-16.9) g/dL Hct 29.7 L (37.5-50.1) % Plt Count 207 (140-400) K/mcL Neutrophils # 9.6 H (1.6-8.9) K/mcL BMP 03/15/17 03:09 Sodium 136 Potassium 4.1 Chloride 104 Carbon Dioxide 20 BUN 15 Creatinine 1.37 H Glucose 90 Calcium 8.8 - ABG Interpretation ABG results: PT/INR, D-dimer PT 13.7 Seconds (9.4-12.1) H 03/12/17 15:58 - Impressions Impressions Chest X-Ray 03/15/17 09:59 IMPRESSION: Diffuse airway inflammation may be seen with asthma, bronchitis or smoking. No consolidative pneumonia. D/ / Morales Go / Morales Go Interpreting Provider: Morales Go - Attending Attestation I examined this patient and my medical decision-making was reviewed with the Resident Physician on 03/15/17. I agree with the documented findings, disposition and treatment plan as described except to the extent set forth below. Mr Parsons is currently admitted for pneumonia and SVT. He remains moderate to high risk due to potential for worsening respiratory and cardiac status. Mr Parsons had another episode of SVT today. It responded to 12mg Adenosine. Cardiology is evaluating. He was upset that no procedures to be done and pneumonia not resolved. No fever or chills. Having some muscular pain from coughing. Exam alert. Mod distress due to SVT. Heart tachy and regular Lungs with scattered rhonchi Abd soft No edema I/P 1. PNA - recheck CXR 2. SVT - EP to evaluate today. Further diagnoses and plan as above.
[2017-03-15] MEDS: *HR* Amiodarone 200 MG TABLET PO SCH (15:43)
--- NOTE | 2017-03-15 16:25 | Oncology Inp Consult Note ---
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 Cuco Willams. Last seen in clinic on 03/06/2017. Diagnosis: 1. 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 Initially presented with localized prostate cancer in October 2014. Found to have liver metastases by MRI imagin 06/07/15. Prior therapy: 1. Lupron 10/21-~10/22, stopped per patient preference 2. Taxotere 12/07/14-01/18/15, stopped per patient preference. (He states it was well tolerated, notes say otherwise) 3. Xtandi 80 mg 10/22-08/23, stopped per patient preference 4. Xtandi 80 mg daily initiated 01/09/17- stopped 03/06/17 due to increased PSA from 322 to 597, continue prednisone 5mg daily at patient insistence. Treatment intent: Palliative The patient's cancer is progressing. Given his right upper quadrant pain on last clinic visit, we obtained a CT scan of abdomen and pelvis on 03/09/17. This showed some suspected metastatic lesions in the liver that was a change since previous scans. Treatment plan from last clinic visit was to restart docetaxel at 50 mg/m2, planned to start on 03/20/17, but, now may be delayed due to SVT admission. Our recommendation is to continue cardiology plan through discharge. Dr Willams will see the patient at [facility] on 03/20/17 at 0800 ( existing scheduled follow up) Dr Andrade remotely piloted vehicle controller, and will assess patient as well. (2) SVT (supraventricular tachycardia) Status: Acute - Data of Consult Patient: known to practice within the last 3 years Consult date: 03/15/17 Requesting Physician: Mike Henderson DO Primary Care Provider: Rozina Aguirre - Consult Narrative Reason for consult: SVT, with metastatic prostate cancer History of present illness: Mr. Parsons is a 81 year old male admitted to [facility] with SVT. He is a current patient at the [facility] with Dr. Cuco Willams. Last seen in clinic on 03/06/2017. Diagnosis: 1. 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 Initially presented with localized prostate cancer in October 2014. Found to have liver metastases by MRI imagin 06/07/15. Prior therapy: 1. Lupron 10/21-~10/22, stopped per patient preference 2. Taxotere 12/07/14-01/18/15, stopped per patient preference. (He states it was well tolerated, notes say otherwise) 3. Xtandi 80 mg 10/22-08/23, stopped per patient preference 4. Xtandi 80 mg daily initiated 01/09/17- stopped 03/06/17 due to increased PSA from 322 to 597, continue prednisone 5mg daily at patient insistence. Treatment intent: Palliative Admitted to [facility] for sepsis and aspiration pneumonia, with exacerbation of SVT, converted with adenosine. Patient with history of arrythmia. Oncology consulted due to current treatment of metastatic prostate cancer. Past Med Surg Social Fam HX - Past Medical History Medical history: arthritis, cancer, coronary artery disease, diabetes, malignancy, myocardial infarction, TIA Psychiatric history: no psych history - Past Surgical History Surgical History: angioplasty/stent, prostatectomy - Social History Smoking Status: Former smoker Smokeless Tobacco Status: No Alcohol use: none Drug use: none - Family History Mother Living Status: Hx Family Cardiac Disorders: No Hx Family Respiratory Disorders: No Hx Family Cancer: Yes Hx Family GI Disorders: No Hx Family Genitourinary Disorders: Yes Hx Family Endocrine Disorder: No Hx Family Neuromuscular Disorders: No Hx Family Neurologic Disorders: No Hx Family HEENT Disorders: No Hx Family Autoimmune Disorders: No Hx Family Medical Disorders: Yes Medications and Allergies Insulin ASPART [NovoLOG] 5 unit SQ TID MDD Sliding Scale 01/18/15 [History] Insulin Glargine,Hum.rec.anlog [Toujeo Solostar] 15 unit SQ HS 03/03/16 [History ] L. Acidophilus/Bifid. Animalis [One-A-Day Trubiotics Capsule] 1 each PO DAILY [History] Lutein 20 mg PO DAILY 04/17/16 [History] Cyanocobalamin (B-12) [Vitamin B12] 1,000 mcg IM QMONTH 01/01/17 [History] [place]-3/Dha/Epa/Fish Oil [Fish Oil 1,000 mg Softgel] 1 each PO DAILY 01/09/17 [ History] Enzalutamide [Xtandi] 120 mg PO HS #90 capsule 02/16/17 [Rx] Mv-Mn/FA/Lycopene/Lut/Hb#178 [Nirav Multivit For Men Caplet] 1 each PO DAILY [History] Promethazine [Phenergan] 25 mg PO Q6HR PRN #30 tablet 03/06/17 [Rx] predniSONE [PredniSONE] 5 mg PO BID #60 tablet 03/06/17 [Rx] Amoxicillin/Clavulanate [Augmentin] 875 mg PO BIDWM #14 tablet 03/15/17 [Rx] Metoprolol [Lopressor] 50 mg PO TID #90 tablet 03/15/17 [Rx] 3 Allergy/AdvReac Type Severity Reaction Status Date / Time diphenhydramine AdvReac Shakiness Verified 03/12/17 08:42 Cardiovascular: Present: irregular heart rhythm Oncology - Exam - Constitutional Vitals: Temp Pulse Resp BP Pulse Ox 99.4 F 77 16 148/77 98 03/15/17 11:49 03/15/17 15:25 03/15/17 15:25 03/15/17 15:25 03/15/17 11:49 General appearance: cooperative, no acute distress - Head Head exam: Present: normal inspection, normocephalic - Eye Eye exam: Present: PERRL - ENT ENT exam: Present: mucous membranes moist - Cardiovascular Cardiovascular exam: Present: RRR - Extremities Exam Extremities exam: Present: full ROM, normal inspection - Neurological Exam Neurological exam: Present: alert, oriented X3, no focal deficits - Psychiatric Psychiatric exam: Present: normal affect, normal mood Oncology - Results Labs: Short CBC 03/15/17 Range/Units 03:09 WBC 12.4 H (4.3-11.1) K/mcL Hgb 9.6 L (12.9-16.9) g/dL Hct 29.7 L (37.5-50.1) % Plt Count 207 (140-400) K/mcL Neutrophils # 9.6 H (1.6-8.9) K/mcL BMP 03/15/17 03:09 Sodium 136 Potassium 4.1 Chloride 104 Carbon Dioxide 20 BUN 15 Creatinine 1.37 H Glucose 90 Calcium 8.8 Consult Discharge Plan - Plan Instructions: Heart Failure (DC), Diabetes Mellitus Type 2 in Adults (DC), Pneumonia (DC) Additional Instructions: Follow up with PCP within 1 week of discharge. Follow up with cardiology and oncology. Take all meds as prescribed and return to emergency room if symptoms return. Referrals: [facility], Cardiology [Other] (Office will call patient at home with follow up appointment) Cuco Willams MD [Partnered Physician] - 03/20/17 8:00 am Rozina Villeda MD [Primary Care Provider] - 03/28/17 1:30 pm Prescriptions: Amoxicillin/Clavulanate [Augmentin] 875 mg PO BIDWM #14 tablet Metoprolol [Lopressor] 50 mg PO TID #90 tablet <Leonel Andrade S - Last Filed: 03/16/17 09:01> Date of Encounter: 03/16/17 - Data of Consult Requesting Physician: Mike Henderson DO Primary Care Provider: Rozina Aguirre - Consult Narrative History of present illness: Mr. Parsons is a 81 year old male Oncology - Exam - Constitutional Vitals: Temp Pulse Resp BP Pulse Ox 97.8 F 79 17 119/70 96 03/15/17 16:30 03/15/17 16:30 03/15/17 16:30 03/15/17 16:30 03/15/17 16:30 Oncology - Results Labs: Short CBC 03/15/17 Range/Units 03:09 WBC 12.4 H (4.3-11.1) K/mcL Hgb 9.6 L (12.9-16.9) g/dL Hct 29.7 L (37.5-50.1) % Plt Count 207 (140-400) K/mcL Neutrophils # 9.6 H (1.6-8.9) K/mcL BMP 03/15/17 03:09 Sodium 136 Potassium 4.1 Chloride 104 Carbon Dioxide 20 BUN 15 Creatinine 1.37 H Glucose 90 Calcium 8.8 - Attending Attestation Castrate resistant metastatic prostate cancer. He had few treatments as mentioned above. His PSA has been up considerably from 0.1 on 08/30/2016 to 322 on 02/01/2017 to currently 597 on 03/02/2017 CT Angiogram chest 03/12/2017 showed no pulmonary embolism. New T1 sclerotic bone lesion Pelvis with IV contrast 03/09/2017 showed heterogeneous appearance of segment 4.A and IVb which is fairly large. Could be fatty infiltration versus metastasis. Also new focal hypodensities in the posterior liver in for metastasis He has no evidence of portal hypertension or splenomegaly His liver enzymes are also ALT elevated to 70 range since 03/02/2017 AST 120 range for the same time. Prior to that liver enzymes are normal Discussed at tumor board on 03/16/2017. Apparently liver was biopsied in the past. We will check alpha-fetoprotein and CA-19-9 levels A bone scan on December 2016 did not show any major metastasis To the progressive increase in PSA and increasing liver lesion could be prostate cancer metastasis to the liver He was evaluated by Dr. Willams on 03/06/2017 and the plan is to start docetaxel at a lower dose 50 mg/m every 3 weeks. He had docetaxel in the past but stopped after few cycles due to intolerance 2. SVT. He is being followed by cardiology . He is on a trial of Amiodarone. He has possible atrial flutter with 1-1 conduction and may need long-term anticoagulation per cardiology
[2017-03-15] MEDS: Insulin DETEMIR 100 UNIT/ML X5UNITS SQ SCH (20:49)
[2017-03-15] MEDS: Menthol 9.1 MG LOZENGE PO PRN (20:49)
[2017-03-16] MEDS ORDERED: *HR* Adenosine 6 MG/2 ML VIAL IVP ONE ×2 (00:29→05:20)
[2017-03-16] MEDS ORDERED: *HR* Metoprolol 5 MG/5 ML VIAL IVP ONE (00:31)
--- NOTE | 2017-03-16 00:58 | Event Note ---
Date of Encounter: 03/16/17 Time of Encounter: 00:26 Patient went into SVT. HR was in the 180s when I saw him. Patient was complaining of chest pain. EKG was obtained and showed atrial tachycardia with no ST elevations or acute ischemic changes. Patient was first given 5 mg IV metoprolol and didn't respond. Crash cart brought into patient room and defibrillator pads placed on chest as a precaution. He was then given 6 mg IV adenosine and converted into sinus rhythm with HR of 92. Patient says his chest pain has significantly improved. He was alert and oriented x 3 throughout the entire episode. His BP is currently stable at 149/97.
[2017-03-16] MEDS: Ipratropium/Albuterol Neb 3 ML IH SCH ×4 (04:08→23:19)
--- NOTE | 2017-03-16 05:54 | Event Note ---
Date of Encounter: 03/16/17 Time of Encounter: 05:52 Patient has been having recurrent SVT. Discussed with resident. Advised to check magnesium and potassium and supplement if they are low. Magnesium previously was low. IV Lopressor 5 every 6 would be a good choice considering patient is septic and has come in with pneumonia. However if patient continued to manifest recurrent SVT then probably needs to rule out PE. morning hospitalist will be in soon and will advise. Discussed with the resident.
[2017-03-16] MEDS: *HR* Heparin 5,000 UNIT/ML VIAL SQ SCH ×2 (05:58→16:05)
[2017-03-16] MEDS ORDERED: *HR* Metoprolol 5 MG/5 ML VIAL IVP SCH (06:00)
--- NOTE | 2017-03-16 06:15 | Event Note ---
Date of Encounter: 03/16/17 Time of Encounter: 05:15 Patient was having SVTs with HR in the 180s. He did not respond to vagal maneuvers. He was given 6 mg IV of adenosine but did not respond. A second round of adenosine at 12 mg IV was given and patient was able to convert to sinus tachy around 112 HR. EKG was done and showd no ST elevations or acute ischemic changes. I ordered a vq scan for patient to r/o PE. Ordered troponins and mg labs. Ordered lopressor 5 mg IV q6hrs.
[2017-03-16] MEDS ORDERED: *HR* Metoprolol 5 MG/5 ML VIAL IVP PRN (07:13)
[2017-03-16 07:27] LABS: Albumin 2.2 g/dL (3.5-5.0); Albumin/Globulin Ratio 0.6 (1.1-2.2); Bilirubin,Total 0.6 mg/dL (0.2-1.2); Calcium 8.9 mg/dL (8.6-10.8); Magnesium 1.4 mg/dL (1.6-2.6); Potassium 4.1 mEq/L (3.5-4.5); Total Protein 6.2 g/dL (6.0-8.3)
[2017-03-16] MEDS: Famotidine 20 MG TABLET PO SCH (07:48)
[2017-03-16] MEDS: Aspirin Enteric Coated 81 MG Tablet PO SCH (07:48)
[2017-03-16] MEDS: *HR* Amiodarone 200 MG TABLET PO SCH (07:48)
[2017-03-16] MEDS: predniSONE 5 MG TABLET PO SCH (07:48)
[2017-03-16] MEDS ORDERED: Metoprolol 100 MG TABLET PO SCH (09:00)
--- NOTE | 2017-03-16 09:09 | Electrophysiology ProgressNote ---
Date of Encounter: 03/16/17 Time of Encounter: 09:00 Assessment and Plan (1) Pneumonia Current Visit: Yes Status: Acute Per EP: Management per primary service. On antibiotics. Qualifiers: Pneumonia type: aspiration pneumonia Laterality: unspecified laterality Lung location: unspecified part of lung Qualified Code(s): J69.0 - Pneumonitis due to inhalation of food and vomit (2) SVT (supraventricular tachycardia) Current Visit: No Status: Acute Per EP: Strips previously appeared to be atrial tach 1:1 conduction. Had recurrent SVT again x 3 today. Currently SR 70s to 80s. Systolic blood pressures 130s to 150s. Lopressor increased to 100mg PO BID. Discussed with Dr. Winston Andrade, will increase Amiodarone to 400mg PO BID. No ablation warranted. VQ low prob. for PE. Recent CT negative for PE. Mag noted to be 1.4, has been replaced multiple times, will start Mag oxide 400mg PO BID, give Mag rider 4 gms, check mag in am. Patient with also history of atrial fibrillation, atrial flutter, TIA. Appears to have previously been on anticoagulation of Xarelto-- developed scleral hemorrhage and had multiple epistaxis epsiodes. fairly adamant against Coumadin-- "family member from Coumadin". Patient has declined anticoagulation currently and on aspirin only. Has anemia, H&H stable, but downward trend. Ideally, would be on anticoagulation. Patient and family aware of increased stroke risk. (3) Elevated troponin Current Visit: No Status: Acute Per Cardiology: Very mild troponin 0.04, initially negative and subsequently negative. Chest pain-free currently. Suspected demand ischemia in the setting of pneumonia and SVT. Echo showed EF preserved. (4) CAD (coronary artery disease) Current Visit: No Status: Chronic Per EP: H/o multiple PCI. Continue asa, statin, and bb. Last [facility] in 2016 showed moderate non-obstructive three vessel CAD. TTE shows EF 60%. Mild AR. No SWMA. Qualifiers: Coronary Disease-Associated Artery/Lesion type: [place] artery [place] vs. transplanted heart: [place] heart Associated angina: with unstable angina Qualified Code(s): I25.110 - Atherosclerotic heart disease of [place] coronary artery with unstable angina pectoris (5) Prostate cancer metastatic to bone Current Visit: Yes Status: Chronic Per EP: Now with apparent mets to liver and spine. Management per primary service. Oncology consult noted-- apparent palliative management. 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 Discussion w patient/family: The assessment and plan as outlined above was discussed with the patient and/or family members who expressed understanding and agreement. All questions were answered. Thank you for involving us in the care of your patient. Please call with any questions. Subjective Principal diagnosis: SVT, chest pain Interval history: Patient reports 3 episodes of rapid heart rate again during the night. Currently denies any chest pain or palpitations. Reports a soreness of breath has improved. Continues to experience abdominal muscle soreness with coughing, dry nonproductive. Objective Vital Signs, Last 4 Hours Temp Pulse Resp BP Pulse Ox 03/16/17 08:53 98.9 F 75 16 139/86 98 General: Conversant, No Apparent Distress HEENT: Atraumatic, Normocephaly, Mucus Membranes Moist Neck: No JVD Cardiac: Reg Rate and Rhythm, Normal S1 and S2, No Murmur Lungs: Other (diminished throughout) Neuro: Alert and responsive, No focal deficits noted Skin: No rashes noted on visualized skin, Other (pale) Extremities: No Edema Results 03/15/17 03:09 03/16/17 06:11 Lab Results Laboratory Tests 03/16/17 06:11 Creatinine 1.47 H Est GFR (Non-Af Amer) 46 L Magnesium 1.4 L Impressions Chest X-Ray 03/15/17 09:59 IMPRESSION: Diffuse airway inflammation may be seen with asthma, bronchitis or smoking. No consolidative pneumonia. D/ / Morales Go / Morales Go Interpreting Provider: Morales Go Pulmonary Perfusion Imaging 03/16/17 06:00 IMPRESSION: Very low probability for pulmonary embolism. D/ / Liam Schneider MD / Liam Schneider MD Interpreting Provider: Liam Schneider MD Active Medications Hydrocodone Bitart/Acetaminophen ([place] 5-325 Mg) 1 tab PO Q4HR PRN PRN Reason: Moderate Pain Stop: 09/11/17 11:29 Last Admin: 03/14/17 08:16 Dose: 1 tab Albuterol/Ipratropium (Duoneb) 3 ml IH QIDR [facility] Stop: 09/11/17 05:01 Last Admin: 03/16/17 04:08 Dose: 3 ml Albuterol/Ipratropium (Duoneb) 3 ml IH [id number] PRN PRN Reason: Shortness Of Breath/Wheezing Stop: 09/10/17 22:37 Amiodarone HCl (Cordarone) 200 mg PO DAILY [facility] Stop: 09/14/17 15:16 Last Admin: 03/16/17 07:48 Dose: 200 mg Amoxicillin/Clavulanate Potassium (Augmentin) 875 mg PO BIDWM [facility] Stop: 09/15/17 08:01 Last Admin: 03/16/17 07:48 Dose: 875 mg Aspirin (Aspirin Ec) 81 mg PO DAILY [facility] Stop: 09/12/17 09:01 Last Admin: 03/16/17 07:48 Dose: 81 mg Benzonatate (Tessalon) 100 mg PO TID PRN PRN Reason: Cough Stop: 09/10/17 22:40 Last Admin: 03/15/17 15:43 Dose: 100 mg Bisacodyl (Dulcolax) 10 mg RC DAILY PRN PRN Reason: Constipation Stop: 09/15/17 09:11 Clopidogrel Bisulfate (Plavix) 75 mg PO DAILY [facility] Stop: 09/12/17 13:16 Last Admin: 03/16/17 07:48 Dose: 75 mg Dextrose/Water (Dextrose 50% (Syg)) 25 ml IVP AD PRN PRN Reason: Hypoglycemia Stop: 09/10/17 22:53 Docusate Sodium (Colace) 100 mg PO BID PRN PRN Reason: Constipation Stop: 09/10/17 22:34 Last Admin: 03/16/17 07:48 Dose: 100 mg Famotidine (Pepcid) 20 mg PO DAILY [facility] Stop: 09/11/17 09:01 Last Admin: 03/16/17 07:48 Dose: 20 mg Glucagon (Glucagen) 1 mg IM ONCE PRN PRN Reason: Hypoglycemia Stop: 09/10/17 22:53 Glucose (Gluctose) 15 gm PO ONCE PRN PRN Reason: Hypoglycemia Stop: 09/10/17 22:53 Glucose (Gluctose) 30 gm PO ONCE PRN PRN Reason: Hypoglycemia Stop: 09/10/17 22:53 Guaifenesin (Mucinex) 600 mg PO BID PRN PRN Reason: Congestion Stop: 09/10/17 22:40 Last Admin: 03/16/17 07:48 Dose: 600 mg Guaifenesin/Codeine Phosphate (Robitussin W/Codeine) 10 ml PO Q6HR PRN; Protocol PRN Reason: Cough Stop: 09/11/17 11:30 Last Admin: 03/15/17 10:39 Dose: 10 ml Heparin Sodium (Porcine) (Heparin) 5,000 unit SQ Q8HCO [facility] Stop: 09/13/17 08:01 Last Admin: 03/16/17 05:58 Dose: 5,000 unit Dextrose (Dextrose 5%) 1,000 mls @ 100 mls/hr IVC .Q10H PRN PRN Reason: HYPOGLYCEMIA Stop: 09/10/17 22:53 Magnesium Sulfate 4 gm/ (Dextrose) 108 mls @ 25 mls/hr IVPB ONCE ONE Stop: 03/16/17 13:36 Insulin Detemir (Levemir) 20 unit SQ HS [facility] Stop: 09/10/17 23:01 Last Admin: 03/15/17 20:49 Dose: 20 unit Insulin Human Lispro (Humalog) 0 units SQ TIDAC [facility] PRN Reason: Protocol Stop: 09/11/17 07:31 Last Admin: 03/15/17 17:34 Dose: 6 units Insulin Human Lispro (Humalog) 0 units SQ [facility] PRN Reason: Protocol Stop: 09/11/17 21:01 Last Admin: 03/15/17 20:51 Dose: 3 units Insulin Human Lispro (Humalog) 3 units SQ TIDWM [facility] Stop: 09/13/17 17:01 Last Admin: 03/15/17 17:34 Dose: 3 units Magnesium Oxide (Mag-Ox) 400 mg PO BID [facility] PRN Reason: Protocol Stop: 09/15/17 09:31 Menthol (Cough Drops) 9.1 mg PO Q2H PRN PRN Reason: Cough Stop: 09/13/17 14:49 Last Admin: 03/15/17 20:49 Dose: 9.1 mg Metoprolol Tartrate (Lopressor) 5 mg IVP Q6HR PRN PRN Reason: SVT Stop: 09/15/17 06:01 Metoprolol Tartrate (Lopressor) 100 mg PO BID [facility] Stop: 09/15/17 09:01 Morphine Sulfate (Morphine Sulfate) 2 mg IVP Q4HR PRN PRN Reason: Severe Pain Stop: 09/11/17 14:59 Last Admin: 03/13/17 17:16 Dose: 2 mg Naloxone HCl (Narcan) 0.4 mg IVP Q2MIN PRN PRN Reason: Opioid Reversal Stop: 09/10/17 22:38 Nitroglycerin (Nitroglycerin) 0.4 mg SL Q5MIN PRN PRN Reason: Chest Pain Stop: 09/11/17 15:24 Prednisone (Prednisone) 5 mg PO DAILY [facility] Stop: 09/11/17 09:01 Last Admin: 03/16/17 07:48 Dose: 5 mg Promethazine HCl (Phenergan) 25 mg PO Q6HR PRN PRN Reason: Nausea Stop: 09/10/17 22:32 Last Admin: 03/14/17 20:10 Dose: 25 mg Tamsulosin HCl (Flomax) 0.4 mg PO HS [facility] Stop: 09/14/17 21:01 Last Admin: 03/15/17 20:50 Dose: 0.4 mg - EKG Interpretation EKG results cardiology: other (3 more episodes SVT noted, currently SR 70's) - VTE Documentation of Mechanical Device: Intermittent pneumatic compression device Consult Discharge Plan - Plan Instructions: Heart Failure (DC), Diabetes Mellitus Type 2 in Adults (DC), Pneumonia (DC) Additional Instructions: Follow up with PCP within 1 week of discharge. Follow up with cardiology and oncology. Take all meds as prescribed and return to emergency room if symptoms return. Referrals: [facility], Cardiology [Other] (Office will call patient at home with follow up appointment) Cuco Willams MD [Partnered Physician] - 03/20/17 8:00 am Rozina Villeda MD [Primary Care Provider] - 03/28/17 1:30 pm Prescriptions: Amoxicillin/Clavulanate [Augmentin] 875 mg PO BIDWM #14 tablet Metoprolol [Lopressor] 50 mg PO TID #90 tablet
[2017-03-16] MEDS ORDERED: Bisacodyl 10 MG RECTAL SUPPOSITORY RC PRN (09:10)
[2017-03-16] MEDS ORDERED: Magnesium Sulfate 4 GM in D5% in Water 100 ML IVPB ONE (09:17)
[2017-03-16] MEDS ORDERED: *HR* Amiodarone 200 MG TABLET PO ONE (09:22)
[2017-03-16] MEDS ORDERED: Magnesium Oxide 400 MG TABLET PO SCH (09:30)
[2017-03-16] MEDS: Insulin LISPRO 300 UNITS/3 ML VIAL SQ SCH ×6 (09:31→17:45)
--- NOTE | 2017-03-16 10:01 | Internal Med Progress Note ---
Date of Encounter: 03/16/17 Time of Encounter: 09:59 - Assessment and plan (1) Sepsis Current Visit: Yes Status: Resolved Assessment and plan: admitted with sepsis criteria--currently resolved blood cultures negative growth to date initially placed on broad spectrum antibiotics that have been de-escalated Plan: Patient received 4 days Zosyn Augmentin (day 1) Qualifiers: Sepsis type: sepsis due to unspecified organism Qualified Code(s): A41.9 - Sepsis, unspecified organism (2) Pneumonia Current Visit: Yes Status: Acute Assessment and plan: CXR 03/15/17--no consolidative pneumonia; diffuse airway inflammation Plan: as above Qualifiers: Pneumonia type: aspiration pneumonia Laterality: unspecified laterality Lung location: unspecified part of lung (3) SVT (supraventricular tachycardia) Current Visit: Yes Status: Acute Assessment and plan: Overnight, three episodes of SVT--two of the three episodes required adenosine to convert to sinus rhythm. EP on board--no ablation warranted. V/Q scan 03/16/17--low probability for PE Plan: Cardiology consult--appreciate recs Lopressor 100mg BID and Amiodarone 400mg PO BID Scheduled magnesium oxide PO (4) Unstable angina Current Visit: Yes Status: Acute Assessment and plan: Intermittent chest pain present for weeks Etiologies include: demand ischemia in setting of SVT and pneumonia, possible worsening of CAD. Echo 03/12/17--LVEF 60%; normal LV chamber size, wall thickness, and function; normal RV structure and function; mild aortic regurgitation; no evidence of pulmonary HTN. Per patient wishes, is not on anticoagulation. 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 insulin use: with termite control service representative use Chronic kidney disease stage: stage 3 (moderate) Qualified Code(s): E11.22 - Type 2 diabetes mellitus with diabetic chronic kidney disease; N18.3 - Chronic kidney disease, stage 3 (moderate); N18.3 - Chronic kidney disease, stage 3 ( moderate); 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 (7) Hypothyroidism Current Visit: No Status: Chronic Assessment and plan: continue synthroid Qualifiers: Hypothyroidism type: acquired Qualified Code(s): E03.9 - Hypothyroidism, unspecified (8) DVT prophylaxis Current Visit: Yes Status: Acute Assessment and plan: heparin SQ (9) Prostate cancer metastatic to bone Current Visit: Yes Status: Chronic Assessment and plan: CTA chest 03/12/17 showed new sclerotic lesion in T11, presumably metastasis. sees Dr. Willams outpatient-continue follow up after discharge. (10) Goals of care, counseling/discussion Current Visit: Yes Status: Acute Assessment and plan: Patient's and daughter at bedside for discussion of goals of care. Resuscitation status was discussed and patient expressed he doesn't want CPR, but does want full treatment up until the time of cardiac arrest. Cardiology FREDY Ward was present to discuss management of patient's recurrent SVT, including explanation for why LHC and ablation are not viable options for this patient. Patient and family decided to change code status to DNR Comfort Care Arrest. They would like further education and options regarding end of life care. Palliative care team will be consulted. - Subjective Interval history: Patient seen and examined this morning at bedside. He is awake sitting on edge of bed, and daughter present. Complains of RUQ/abdominal pain from his dry cough. - Constitutional Vitals: Temp Pulse Resp BP Pulse Ox 98.9 F 75 16 139/86 98 03/16/17 08:53 03/16/17 08:53 03/16/17 08:53 03/16/17 08:53 03/16/17 08:53 General appearance: Present: A&O X 3, no acute distress, answers questions appropriately Internal Medicine: Result - Labs CBC & Chem 7: 03/15/17 03:09 03/16/17 06:11 Labs: BMP 03/16/17 06:11 Sodium 135 L Potassium 4.1 Chloride 102 Carbon Dioxide 19 BUN 20 Creatinine 1.47 H Glucose 197 H Calcium 8.9 Cardiac Enzymes 03/16/17 Range/Units 06:11 Troponin I 0.03 (0-0.03) ng/mL Liver Function 03/16/17 Range/Units 06:11 Total Bilirubin 0.6 (0.2-1.2) mg/dL AST 117 H (5-34) Units/L ALT 75 H (0-55) Units/L Alkaline Phosphatase 85 (38-126) Units/L Albumin 2.2 L (3.5-5.0) g/dL - ABG Interpretation ABG results: PT/INR, D-dimer PT 13.7 Seconds (9.4-12.1) H 03/12/17 15:58 - Impressions Impressions Chest X-Ray 03/15/17 09:59 IMPRESSION: Diffuse airway inflammation may be seen with asthma, bronchitis or smoking. No consolidative pneumonia. D/ / Morales Go / Morales Go Interpreting Provider: Morales Go Pulmonary Perfusion Imaging 03/16/17 06:00 IMPRESSION: Very low probability for pulmonary embolism. D/ / Liam Schneider MD / Liam Schneider MD Interpreting Provider: Liam Schneider MD - VTE Documentation of Mechanical Device: Intermittent pneumatic compression device Consult Discharge Plan - Plan Instructions: Heart Failure (DC), Diabetes Mellitus Type 2 in Adults (DC), Pneumonia (DC) Additional Instructions: Follow up with PCP within 1 week of discharge. Follow up with cardiology and oncology. Take all meds as prescribed and return to emergency room if symptoms return. Referrals: [facility], Cardiology [Other] (Office will call patient at home with follow up appointment) Cuco Willams MD [Partnered Physician] - 03/20/17 8:00 am Rozina Villeda MD [Primary Care Provider] - 03/28/17 1:30 pm Prescriptions: Amoxicillin/Clavulanate [Augmentin] 875 mg PO BIDWM #14 tablet Metoprolol [Lopressor] 50 mg PO TID #90 tablet
[2017-03-16] MEDS ORDERED: 0.9 % Sodium Chloride 1,000 ML IVC SCH (10:30)
--- NOTE | 2017-03-16 11:04 | Event Note ---
Date of Encounter: 03/16/17 Time of Encounter: 11:00 - Cardiology Event Note I had a lengthy discussion with patient, , and family regarding CODE STATUS and palliative care evaluation. Patient has now decided to proceed with DNR Comfort Care arrest. Agreeable to palliative care evaluation. Consult to be placed by primary service.
[2017-03-16] MEDS: Benzonatate 100 MG CAPSULE PO PRN ×2 (11:17→16:05)
[2017-03-16] MEDS: GuaiFENesin/Codeine Oral Soln 5 ML UDC PO PRN (11:17)
[2017-03-16] MEDS ORDERED: predniSONE 20 MG TABLET PO SCH (12:00)
--- NOTE | 2017-03-16 13:07 | Palliative - Consult Note ---
Date of Encounter: 03/16/17 Time of Encounter: 11:05 - Assessment and Plan (1) Cough Current Visit: Yes Status: Acute Assessment and plan: Since the patient's pneumonia is adequately treated at this point I would recommend steroids 40 mg a day of prednisone for a week burst. (2) Afib Current Visit: No Status: Chronic Assessment and plan: Stable at this time and cardiology is following, however at this point the patient's family and the patient wished to have second opinion this has been arranged by the primary treatment team patient be transferred to [facility] today for second opinion of A. fib with RVR. Qualifiers: Atrial fibrillation type: paroxysmal Qualified Code(s): I48.0 - Paroxysmal atrial fibrillation (3) Chest pain Current Visit: No Status: Acute Assessment and plan: this is related to the SVTs the patient's been having which has been identified as A. fib with RVR. Audiology is following at this point the family wishes to have a second opinion this will be composted [facility], this has been arranged by the primary care team. 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 Parsons is a 81 year old male CC: Mike Henderson DO Past Med Surg Social Fam HX - Past Medical History Medical history: arthritis, cancer, coronary artery disease, diabetes, malignancy, myocardial infarction, TIA Psychiatric history: no psych history - Past Surgical History Surgical History: angioplasty/stent, prostatectomy - Social History Smoking Status: Former smoker Smokeless Tobacco Status: No Alcohol use: none Drug use: none - Family History Mother Living Status: Hx Family Cardiac Disorders: No Hx Family Respiratory Disorders: No Hx Family Cancer: Yes Hx Family GI Disorders: No Hx Family Genitourinary Disorders: Yes Hx Family Endocrine Disorder: No Hx Family Neuromuscular Disorders: No Hx Family Neurologic Disorders: No Hx Family HEENT Disorders: No Hx Family Autoimmune Disorders: No Hx Family Medical Disorders: Yes Medications and Allergies Insulin ASPART [NovoLOG] 5 unit SQ TID MDD Sliding Scale 01/18/15 [History] Insulin Glargine,Hum.rec.anlog [Toujeo Solostar] 15 unit SQ HS 03/03/16 [History ] L. Acidophilus/Bifid. Animalis [One-A-Day Trubiotics Capsule] 1 each PO DAILY [History] Lutein 20 mg PO DAILY 04/17/16 [History] Cyanocobalamin (B-12) [Vitamin B12] 1,000 mcg IM QMONTH 01/01/17 [History] [place]-3/Dha/Epa/Fish Oil [Fish Oil 1,000 mg Softgel] 1 each PO DAILY 01/09/17 [ History] Enzalutamide [Xtandi] 120 mg PO HS #90 capsule 02/16/17 [Rx] Mv-Mn/FA/Lycopene/Lut/Hb#178 [Nirav Multivit For Men Caplet] 1 each PO DAILY [History] Promethazine [Phenergan] 25 mg PO Q6HR PRN #30 tablet 03/06/17 [Rx] predniSONE [PredniSONE] 5 mg PO BID #60 tablet 03/06/17 [Rx] Amoxicillin/Clavulanate [Augmentin] 875 mg PO BIDWM #14 tablet 03/15/17 [Rx] Metoprolol [Lopressor] 50 mg PO TID #90 tablet 03/15/17 [Rx] 3 Allergy/AdvReac Type Severity Reaction Status Date / Time diphenhydramine AdvReac Shakiness Verified 03/12/17 08:42 - Constitutional Constitutional ROS PAL: no decreased appetite - EENT Eyes: no discharge, no pain Ears: no ear discharge, no ear pain Ears, nose, mouth, throat: no mouth pain, no nasal congestion, no nasal discharge - Cardiovascular Cardiovascular ROS: chest pain, diaphoresis, dyspnea on exertion, irregular heart rhythm, palpitations - Respiratory Respiratory: cough, dyspnea, dyspnea on exertion - Gastrointestinal Gastrointestinal: constipation, no diarrhea, no nausea, no vomiting - Genitourinary Genitourinary ROS male: no urinary hesitancy, no urinary incontinence, no urinary urgency - Musculoskeletal Musculoskeletal ROS IM: no muscle weakness, no myalgias, no neck pain - Integumentary ROS Integumentary: no skin ulcer, no sores, no unusual bruising - Neurological Neurological ROS: no behavioral changes, no disequilibrium, no dizziness, no headache(s), no lack of coordination - Psychiatric Psychiatric general PM: no change in appetite, no confusion, no homicidal ideation, no hopelessness, no suicidal ideation - Endocrine Endocrine IM: other (Positive for diabetes) Palliative Care-Exam - Constitutional Vitals: Temp Pulse Resp BP Pulse Ox 98.0 F 72 17 117/56 98 03/16/17 12:00 03/16/17 12:00 03/16/17 12:00 03/16/17 12:00 03/16/17 12:00 General appearance: Present: cooperative, no acute distress - Head Head Exam: Present: atraumatic, normal inspection, normocephalic - Eye Eye exam: Present: EOMI, normal appearance - ENT ENT exam: Present: mucous membranes moist - Respiratory Respiratory exam: Present: wheezes (Rare) - Cardiovascular Cardiovascular exam: Present: RRR - GI/Abdominal Exam GI/Abdominal exam: Present: normal bowel sounds, soft. Absent: tenderness - Extremities Exam Extremities exam: Present: normal inspection. Absent: pedal edema, tenderness - Neurological Exam Neurological exam: Present: alert, oriented X3 - Psychiatric Psychiatric exam: Present: normal affect, normal mood. Absent: agitated, anxious - Skin Skin exam: Present: dry, warm Internal Medicine - CN: Reslt - Labs CBC & Chem 7: 03/15/17 03:09 03/16/17 06:11 Labs: BMP 03/16/17 06:11 Sodium 135 L Potassium 4.1 Chloride 102 Carbon Dioxide 19 BUN 20 Creatinine 1.47 H Glucose 197 H Calcium 8.9 Cardiac Enzymes 03/16/17 Range/Units 06:11 Troponin I 0.03 (0-0.03) ng/mL Liver Function 03/16/17 Range/Units 06:11 Total Bilirubin 0.6 (0.2-1.2) mg/dL AST 117 H (5-34) Units/L ALT 75 H (0-55) Units/L Alkaline Phosphatase 85 (38-126) Units/L Albumin 2.2 L (3.5-5.0) g/dL - ABG Interpretation ABG results: PT/INR, D-dimer PT 13.7 Seconds (9.4-12.1) H 03/12/17 15:58 - Impressions Impressions Chest X-Ray 03/15/17 09:59 IMPRESSION: Diffuse airway inflammation may be seen with asthma, bronchitis or smoking. No consolidative pneumonia. D/ / Morales Go / Morales Go Interpreting Provider: Morales Go Pulmonary Perfusion Imaging 03/16/17 06:00 IMPRESSION: Very low probability for pulmonary embolism. D/ / Liam Schneider MD / Liam Schneider MD Interpreting Provider: Liam Schneider MD Consult Discharge Plan - Plan Instructions: Heart Failure (DC), Diabetes Mellitus Type 2 in Adults (DC), Pneumonia (DC) Additional Instructions: Follow up with PCP within 1 week of discharge. Follow up with cardiology and oncology. Take all meds as prescribed and return to emergency room if symptoms return. Referrals: [facility], Cardiology [Other] (Office will call patient at home with follow up appointment) Cuco Willams MD [Partnered Physician] - 03/20/17 8:00 am Rozina Villeda MD [Primary Care Provider] - 03/28/17 1:30 pm Prescriptions: Amoxicillin/Clavulanate [Augmentin] 875 mg PO BIDWM #14 tablet Metoprolol [Lopressor] 50 mg PO TID #90 tablet Palliative Quality Palliative Quality: Screen for Code Status: Yes, Screen for Goals of Care: Yes, Screen for Pain: Yes, If Pain Regimen Started, Initiate Bowel Regimen: Yes, Screen for Nausea/Vomitting: Yes Code Status: 03/11/17 22:33 Resuscitation Status: Active [RES] Routine Comment: Resuscitation Status: Full Code 03/16/17 10:58 DNR [Resuscitation Status: Active] [RES] Routine Comment: Resuscitation Status: DNR-Comfort Care-Arrest
--- NOTE | 2017-03-16 13:18 | Event Note ---
Date of Encounter: 03/16/17 Time of Encounter: 13:15 - Cardiology Event Note Patient discussed with Palliative Care and Primary service. Family now requesting transfer to [facility] for 2nd opinion. Transfer pending. Will s/o, re- consult Dr. Yessica SEGAL aware.
--- NOTE | 2017-03-16 14:01 | Discharge Summary ---
Date of Encounter: 03/16/17 Time of Encounter: 14:00 - Discharge Diagnosis (1) Sepsis Priority: Primary Status: Resolved Qualifiers: Sepsis type: sepsis due to unspecified organism Qualified Code(s): A41.9 - Sepsis, unspecified organism (2) Pneumonia Priority: Primary Status: Acute Qualifiers: Pneumonia type: aspiration pneumonia Aspiration pneumonia type: unspecified Laterality: unspecified laterality Lung location: unspecified part of lung Qualified Code(s): J69.0 - Pneumonitis due to inhalation of food and vomit (3) SVT (supraventricular tachycardia) Priority: Primary Status: Acute (4) Unstable angina Priority: Secondary Status: Acute (5) Diabetes Priority: Secondary Status: Chronic Qualifiers: Diabetes mellitus type: type 2 Diabetes mellitus complication status: with kidney complications Diabetes mellitus complication detail: with chronic kidney disease Diabetes mellitus usp insulin use: with intermodal customer service use Chronic kidney disease stage: stage 3 (moderate) Qualified Code(s): E11.22 - Type 2 diabetes mellitus with diabetic chronic kidney disease; N18.3 - Chronic kidney disease, stage 3 (moderate); N18.3 - Chronic kidney disease, stage 3 ( moderate); 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; Z79.4 - vermin exterminator ( current) use of insulin; 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; Z79.4 - [facility] (current) use of insulin (6) CKD stage 3 due to type 2 diabetes mellitus Priority: Secondary Status: Chronic (7) Hypothyroidism Priority: Secondary Status: Chronic Qualifiers: Hypothyroidism type: acquired Qualified Code(s): E03.9 - Hypothyroidism, unspecified (8) DVT prophylaxis Priority: Secondary Status: Acute (9) Prostate cancer metastatic to bone Priority: Secondary Status: Chronic (10) Goals of care, counseling/discussion Priority: Secondary Status: Acute - Discharge Medications Prescriptions: RX: Metoprolol [Lopressor] 100 mg PO BID #60 tablet Home Medications: RX: Insulin ASPART [NovoLOG] 5 unit SQ TID MDD Sliding Scale 01/18/15 [History] RX: Insulin Glargine,Hum.rec.anlog [Toujeo Solostar] 15 unit SQ HS 03/03/16 [ History] RX: L. Acidophilus/Bifid. Animalis [One-A-Day Trubiotics Capsule] 1 each PO DAILY 04/17/16 [History] RX: Lutein 20 mg PO DAILY 04/17/16 [History] RX: Cyanocobalamin (B-12) [Vitamin B12] 1,000 mcg IM QMONTH 01/01/17 [History] RX: [place]-3/Dha/Epa/Fish Oil [Fish Oil 1,000 mg Softgel] 1 each PO DAILY [History] RX: Enzalutamide [Xtandi] 120 mg PO HS #90 capsule 02/16/17 [Rx] RX: Mv-Mn/FA/Lycopene/Lut/Hb#178 [Nirav Multivit For Men Caplet] 1 each PO DAILY 03/06/17 [History] RX: Promethazine [Phenergan] 25 mg PO Q6HR PRN #30 tablet 03/06/17 [Rx] RX: predniSONE [PredniSONE] 5 mg PO BID #60 tablet 03/06/17 [Rx] RX: Amiodarone [Cordarone] 400 mg PO BID tablet 03/16/17 [Rx] RX: Amoxicillin/Clavulanate [Augmentin] 875 mg PO BIDWM #0 tablet 03/16/17 [Rx] RX: Metoprolol [Lopressor] 100 mg PO BID #60 tablet 03/16/17 [Rx] RX: Tamsulosin [Flomax] 0.4 mg PO HS #0 capsule 03/16/17 [Rx] RX: predniSONE [PredniSONE] 40 mg PO DAILY tablet 03/16/17 [Rx] Allergies/Adverse Reactions: 3 Allergy/AdvReac Type Severity Reaction Status Date / Time diphenhydramine AdvReac Shakiness Verified 03/12/17 08:42 Procedures/tests Complete & Pending: Procedures Performed prior 72 hours Category Date Time Status VQ Scan [NM pul vent and perfuse] [NM] Routine Exams 03/16/17 06:00 Completed ECG 12 lead ECG [ECG] Routine Y 03/13/17 16:59 Completed ECG 12 lead ECG [ECG] Routine Y 03/13/17 17:12 Completed ECG 12 lead ECG [ECG] Routine Y 03/15/17 11:26 Completed EKG [ECG 12 lead ECG] [ECG] Stat Y 03/16/17 00:25 Completed EKG [ECG 12 lead ECG] [ECG] Stat Y 03/16/17 05:20 Completed EKG [ECG 12 lead ECG] [ECG] Stat Y 03/16/17 05:35 Completed Date of admission: 03/11/17 22:33 Primary care physician: Rozina Aguirre Consults: 03/11/17 22:52 Consult to Occupational Therapy [CONS] Routine Comment: Evaluate, develop and implement POC Reason for Consult: ambulate and assess Consult to Physical Therapy [CONS] Routine Comment: Evaluate, develop and implement POC Reason for Consult: ambulate assess for placement need 03/12/17 15:09 Consult to Cardiology [CONS] Stat Comment: Consulting Provider: Cardiology Fani Reason for Consult: Acute SVT, CP Call Completed: Yes 03/14/17 08:39 Consult to Cardiology [CONS] Routine Comment: Consulting Provider: Cardiology Fani Reason for Consult: patient back in SVT Call Completed: Yes 03/15/17 11:43 Consult to Oncology [CONS] Routine Consulting Provider: [facility] Reason for Consult: staging of metastatic prostate cancer for possible cardiac intervention Time Notified: 11:47 Call Completed: Yes 03/15/17 12:55 Consult to Electrophysiology (EP) [CONS] Routine Consulting Provider: Electrophysiology Fani Reason for Consult: recurrent SVT Call Completed: Yes 03/16/17 10:59 Consult to Palliative Care [CONS] Routine Comment: Consulting Provider: Palliative Care [facility]ani Reason for Consult: discuss options for hospice/palliative Call Completed: Yes Discharging clinician: Merry Evangelista Anticipated date of discharge: 03/16/17 - Patient Status Disposition: Transfer Intermediate Care Fac Condition: Fair - Discharge Instructions Instructions: Heart Failure (DC), Diabetes Mellitus Type 2 in Adults (DC), Pneumonia (DC) Follow Up With: Indiana Mohr [Other] (Office will call patient at home with follow up appointment) Cuco Willams MD [Partnered Physician] - 03/20/17 8:00 am Rozina Villeda MD [Primary Care Provider] - 03/28/17 1:30 pm Additional Instructions: Follow up with PCP within 1 week of discharge. Follow up with cardiology and oncology. Take all meds as prescribed and return to emergency room if symptoms return. Hospital course: Mr. Parsons is a 81 year old male with PMHx of prostate cancer with mets to liver and bone, afib, diastolic CHF, CAD, OR, and DM admitted from [facility] for failure to thrive and pneumonia. Patient met sepsis criteria on admission with WBC 14.4, lactic acid 3.5, Tmax 100.7, pneumonia as infectious source, and was started on empiric antibiotics (Zosyn and Vancomycin) and IVF. During his hospital course his white count improved, lactic acid returned to normal limits , remained afebrile, and his pneumonia steadily improved clinically. Vancomycin was stopped and he received Zosyn for 4 days before antibiotics de-escalated to Augmentin. Early during his admission, patient had an episode of chest pain with elevated troponin (suspected to be due to demand ischemia in setting of pneumonia and SVT ; subsequent troponins WNL) and runs of SVT, which required adenosine to regain sinus rhythm. Echo showed LVEF 60%, mild aortic regurgitation, no wall motion abnormalities. Last LHC in 2015 showed moderate non-obstructive three vessel CAD. No LHC performed this visit based on results of previous LHC and due to patient's refusal of anticoagulation. Medical management attempted with addition of amiodarone and adjustments of beta jesus dosing. However, patient continued to have recurrent episodes of SVT requiring adenosine to achieve sinus rhythm. Ablation discussed, but deemed to have low probability of success in this patient. Palliative care consulted regarding goals of care--code status changed to DNR-Comfort Care-Arrest. Per their wishes, patient and family will be transferred to [facility] today for a second opinion regarding patient's recurrent SVT. - Time Spent with Patient Total time spent providing and/or coordinating discharge services: - Constitutional Vitals: Temp Pulse Resp BP Pulse Ox 98.0 F 72 17 117/56 98 03/16/17 12:00 03/16/17 12:00 03/16/17 12:00 03/16/17 12:00 03/16/17 12:00 General appearance: Present: A&O X 3, no acute distress, answers questions appropriately - Head Head exam: Present: atraumatic, normocephalic - Eye Eye exam: Present: EOMI - Neck Neck exam general surgery: Present: full ROM, supple - Respiratory Respiratory exam: Absent: respiratory distress, rhonchi, wheezes, tachypnea Additional comments: cough on exam, non-productive - Cardiovascular Cardiovascular exam: Present: RRR, +S1, +S2 - Extremities Exam Extremities exam: Present: full ROM, warm. Absent: tenderness - Neurological Exam Neurological exam: Present: alert, oriented X3, no focal deficits. Absent: facial droop, speech deficit - VTE Documentation of Mechanical Device: Intermittent pneumatic compression device
[2017-03-16 16:17] VITALS: BP 129/76
--- NOTE | 2017-03-16 17:00 | Oncology Inp Progress Note ---
Date of Encounter: 03/16/17 Time of Encounter: 17:00 (1) Malignant neoplasm of prostate metastatic to liver Current Visit: Yes Status: Acute Assessment and plan: As expected at our last visit, CT imaging confirmed significant progression of his prostate cancer involving the liver as well as a new T11 vertebral metastasis. He is symptomatic with intermittent RUQ pain with radicular symptoms to the shoulder. He has no pain from T11 spine. We have arranged for dose-attenuated docetaxel reintroduction this coming week. We will keep this appointment as scheduled. We could consider jevtana as well. Arrythmia to be addressed first if possible as this is causing significant symptomatology as well. Of note, the patient has expressed strong rocio and consideration of hospice measures if his care becomes complex. If his health declines further, this should be considered. He is DNR. Oncology: Subj Interval history: Feeling a bit better today but still with nagging, nonproductive cough. No chest pain or SOB. Awaiting transfer to [facility] for cardiology opinion; currently in NSR - Constitutional Vitals: Vital Signs Temp Pulse Resp BP Pulse Ox 03/16/17 16:12 98.6 F 83 16 129/76 94 03/16/17 15:35 18 98 03/16/17 12:00 98.0 F 72 17 117/56 98 03/16/17 11:16 18 100 03/16/17 08:53 98.9 F 75 16 139/86 98 03/16/17 04:47 99.0 F 113 16 131/71 96 03/16/17 04:10 18 97 03/15/17 23:02 98.7 F 81 22 156/72 96 03/15/17 22:35 22 96 03/15/17 20:18 98.4 F 74 24 145/77 96 Intake and Output 03/16/17 03/16/17 03/16/17 00:59 08:59 16:59 Intake Total 850 / 850 120 / 120 350 / 350 Output Total 1215 / 1215 300 / 300 Balance -365 / -365 -180 / -180 350 / 350 Intake: IV Fluids 100 / 100 Magnesium Sulfate Premix 4gm/ 100 / 100 100mL 4 gm In 100 ml @ 23.148 mls/hr IVPB ONCE ONE Rx#: [id number] Oral 850 / 850 120 / 120 250 / 250 Output: Urine 1215 / 1215 300 / 300 Other: Meal Dinner Breakfast Percent of Meal Consumed 100% 100% Stool Size Large Stool Consistency soft formed Stool Characteristics Normal for Patient Stool Color Brown # Voids 1 1 Blood Glucose* 223 225 255 General appearance: average body habitus, cooperative, no acute distress - Head Head exam: Present: atraumatic, normal inspection, normocephalic - Eye Eye exam: Present: normal appearance, conjuntiva pink, sclera anicteric - ENT ENT exam: Present: mucous membranes moist, normal exam - Neck Neck exam: Present: full ROM, normal inspection - Respiratory Respiratory exam: Present: CTAB - Cardiovascular Cardiovascular exam: Present: RRR - GI/Abdominal GI/Abdominal exam: Present: normal bowel sounds, soft - Extremities Exam Extremities exam: Present: normal inspection - Neurological Exam Neurological exam: Present: alert, CN II-XII intact, normal gait, oriented X3 Oncology: Obj Data - Labs CBC & Chem 7: 03/15/17 03:09 03/16/17 06:11 Labs: Laboratory Results - last 24 hr 03/15/17 03/15/17 03/15/17 11:52 16:46 20:20 Sodium Potassium Chloride Carbon Dioxide BUN Creatinine Est GFR ( Amer) Est GFR (Non-Af Amer) BUN/Creatinine Ratio Glucose POC Glucose 251 H 248 H 223 H Calculated Osmolality Calcium Magnesium Total Bilirubin AST ALT Alkaline Phosphatase Troponin I Serum Total Protein Albumin Globulin Albumin/Globulin Ratio 03/16/17 03/16/17 06:11 06:11 Sodium 135 L Potassium 4.1 Chloride 102 Carbon Dioxide 19 BUN 20 Creatinine 1.47 H Est GFR ( Amer) 55 L Est GFR (Non-Af Amer) 46 L BUN/Creatinine Ratio 14 Glucose 197 H POC Glucose Calculated Osmolality 288 Calcium 8.9 Magnesium 1.4 L Total Bilirubin 0.6 AST 117 H ALT 75 H Alkaline Phosphatase 85 Troponin I 0.03 Serum Total Protein 6.2 Albumin 2.2 L Globulin 4.0 H Albumin/Globulin Ratio 0.6 L - Impressions Impressions Chest X-Ray 03/15/17 09:59 IMPRESSION: Diffuse airway inflammation may be seen with asthma, bronchitis or smoking. No consolidative pneumonia. D/ / Morales Go / Morales Go Interpreting Provider: Morales Go Pulmonary Perfusion Imaging 03/16/17 06:00 IMPRESSION: Very low probability for pulmonary embolism. D/ / Liam Schneider MD / Liam Schneider MD Interpreting Provider: Liam Schneider MD - Imaging and cardiology CT scan - abdomen Status: image reviewed by me Additional comments: CT OF THE ABDOMEN AND PELVIS WITH CONTRAST 03/09/2017 3:02 pm FINDINGS: Lower Chest: Limited images of the lower chest reveal clear lung bases bilaterally. Coronary artery calcifications are present. Organs: There is marked heterogeneous hypodensity within the left lobe of the liver, most severe in segments 4A and 4B. This represents a change from the prior examination and is concerning for infiltrative tumor. Given the infiltrative appearance, precise dimensions cannot be accurately performed; however, it appears more extensive than on the prior examination. Additionally, there is development of a focal hypodense lesion in the posterior aspect of the right hepatic lobe measuring 3.4 x 2.3 cm (series 2, image 24). The spleen, pancreas, and adrenals are unremarkable. Kidneys demonstrate symmetric enhancement without hydronephrosis. GI/Bowel: Evaluation of the bowel is mildly limited by underdistention. No evidence of obstruction. Diverticulosis without claire evidence of diverticulitis. Appendix is not clearly visualized. Pelvis: Bladder and prostate are unremarkable. Peritoneum/Retroperitoneum: Significant atherosclerotic disease in the aorta and its main branches. No free fluid or free air. There are multiple lymph nodes in the ashtyn hepatis. There is a 1.6 x 1.4 cm node on series 2, image 53, which is increased from prior examination (previously measuring 7 x 7 mm). There is a 1.8 x 2.2 cm node posterior to the left hepatic lobe on series 2, image 47, which is increased from prior examination (previously 1.2 x 1.8 cm). Aortocaval node on series 2, image 53 measures 3.3 x 1.0 cm (previously 2.5 x 0.8 cm). Bones/Soft Tissues: Stranding in the anterior subcutaneous fat may relate to sites of subcutaneous injection. No destructive osseous lesions. Degenerative changes are present in the lumbar spine. CT/CT abd pelvis w iv and oral IMPRESSION: Markedly heterogeneous appearance of the left hepatic lobe, predominately involving segments 4A and 4B. This is a change from the prior examination. While irregular fatty infiltration could have this appearance, the evolution is concerning for infiltrative metastatic disease. New focal hypodense lesion in the posterior right hepatic lobe, also concerning for metastatic disease. Enlarging ashtyn hepatis lymph nodes, concerning for metastatic disease. CT scan - chest Status: image reviewed by me Additional comments: CTA OF THE CHEST 03/12/2017 12:37 am FINDINGS: Pulmonary Arteries: Evaluation is limited by motion artifact. No definite pulmonary embolus is seen. Mediastinum: No evidence of mediastinal lymphadenopathy. The heart and pericardium demonstrate no acute abnormality. Coronary artery stents are again noted. There is no acute abnormality of the thoracic aorta. Lungs/pleura: The lungs are without acute process. No focal consolidation or pulmonary edema. No evidence of pleural effusion or pneumothorax. Upper Abdomen: Limited images of the upper abdomen are unremarkable. Soft Tissues/Bones: There is an ill round sclerotic lesion in T11 in the right side of the vertebral body. This is not present on the prior study. CT/CT angio chest IMPRESSION: 1. No definite scan evidence for pulmonary embolus on a study limited by motion artifact. 2. No acute airspace disease. 3. New sclerotic lesion in T11, presumably a metastasis. - ABG Interpretation ABG results: PT/INR, D-dimer PT 13.7 Seconds (9.4-12.1) H 03/12/17 15:58 Consult Discharge Plan - Plan Instructions: Heart Failure (DC), Diabetes Mellitus Type 2 in Adults (DC), Pneumonia (DC) Additional Instructions: Follow up with PCP within 1 week of discharge. Follow up with cardiology and oncology. Take all meds as prescribed and return to emergency room if symptoms return. Referrals: Fani, Cardiology [Other] (Office will call patient at home with follow up appointment) Cuco Willams MD [Partnered Physician] - 03/20/17 8:00 am Rozina Villeda MD [Primary Care Provider] - 03/28/17 1:30 pm Prescriptions: Metoprolol [Lopressor] 100 mg PO BID #60 tablet
[2017-03-16] MEDS: Menthol 9.1 MG LOZENGE PO PRN (17:44)
[2017-03-16] MEDS ORDERED: *HR* Amiodarone 200 MG TABLET PO SCH (21:00)
--- NOTE | 2017-03-17 13:42 | Electrocardiograph Report ---
[address] [place], [place] [address] Test Date: 2017-03-16 Pat Name: Lauro Parsons Department: 110 Room: 2N06 Gender: M Shoe Lacer: CYNTHIA : 1935 Requested By: Adam Evans Order Number: [id number] Reading MD: Corina Edmondson Measurements Intervals [place] Rate: 164 P: FL: 0 QRS: -6 QRSD: 84 T: -31 QT: 252 QTc: 342 Interpretive Statements ATRIAL FLUTTER/TACHYCARDIA WITH RAPID VENTRICULAR RESPONSE INFERIOR MYOCARDIAL INFARCTION, OF INDETERMINATE AGE ST DEPRESSION, CONSIDER SUBENDOCARDIAL INJURY Electronically Signed On 03-17-2017 13:41:07 EST by Corina Edmondson
--- NOTE | 2017-03-17 13:45 | Electrocardiograph Report ---
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
--- NOTE | 2017-03-17 13:45 | Electrocardiograph Report ---
[address] [address] Test Date: 2017-03-16 Pat Name: Lauro Parsons Department: 110 Room: 2N06 Gender: M Liability Claims Examiner: CYNTHIA : 1935 Requested By: Adam Evans Order Number: [id number] Reading MD: Corina Edmondson Measurements Intervals [place] Rate: 108 P: 41 FL: 183 QRS: -13 QRSD: 85 T: 15 QT: 334 QTc: 398 Interpretive Statements SINUS TACHYCARDIA WITH OCCASIONAL VENTRICULAR PREMATURE COMPLEXES WITH FREQUENT SUPRAVENTRICULAR PREMATURE COMPLEXES INFERIOR MYOCARDIAL INFARCTION, PROBABLY OLD Electronically Signed On 03-17-2017 13:44:12 EST by Corina Edmondson
--- NOTE | 2017-03-17 13:57 | Electrocardiograph Report ---
[address] [place] [address] Test Date: 2017-03-15 Pat Name: Lauro Parsons Department: 110 Room: 2N06 Gender: M Tailings Man: : 1935 Requested By: Mike Hnederson Order Number: [id number] Reading MD: Corina Edmondson Measurements Intervals [place] Rate: 172 P: [place]: 0 QRS: -6 QRSD: 82 T: -26 QT: 240 QTc: 333 Interpretive Statements ATRIAL FLUTTER/TACHYCARDIA SEPTAL MYOCARDIAL INFARCTION, PROBABLY OLD INFERIOR MYOCARDIAL INFARCTION, OF INDETERMINATE AGE Electronically Signed On 03-17-2017 13:55:28 EST by Corina Edmondson
[2017-03-19 12:51] LABS: AFP Tumor Marker Non-Pregnant 1 ng/mL (0-9); Cancer Antigen-GI (CA 19-9) <1 U/mL (0-37)
== END 2017-03-16 18:32 | DRG 871 ==
LOC: 3ANU → SUATTDRO 22:33 → 2NNU 03-12 17:28
PROVIDERS: ADMIT Internal Medicine; ATTEND Internal Medicine

== ENCOUNTER 2017-04-04 03:10 | Inpatient (IN) ==
--- NOTE | 2017-04-04 07:35 | Internal Med History&Physical ---
Date of Encounter: 05/04/17 Time of Encounter: 07:33 Assessment and Plan (1) Sepsis Status: Resolved ASSESSMENT: -Sepsis , unknown source, CXR revealed normal pulmonary vasculature, Minimal bibasilar atelectasis is present. Lungs are otherwise clear. UA is not suggestive of UTI , CT scan at the outside facility is negative for Intra-abdominal source of infection - Repeat lactic acid - Starting ABs with Vanc and zosyn -CBCD, BMP in AM -CPP x 1 more, 8 hr after the 1st one -EKG now and in AM -Tylenol 650 mg PO q 4-6 hr PRN pain or fever Qualifiers: Sepsis type: sepsis due to unspecified organism Qualified Code(s): A41.9 - Sepsis, unspecified organism (2) Anemia Status: Chronic Anemia 2/2 CKD , obtain iron studies , transfuse for hgb less than 7. Qualifiers: Anemia type: due to chronic kidney disease Chronic kidney disease stage: stage 3 (moderate) Qualified Code(s): N18.3 - Chronic kidney disease, stage 3 (moderate); D63.1 - Anemia in chronic kidney disease; D63.1 - Anemia in chronic kidney disease (3) CAD (coronary artery disease) Status: Chronic Cont Home meds with holding parameter. Qualifiers: Coronary Disease-Associated Artery/Lesion type: [place] artery [place] vs. 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 Qualifiers: Diabetes mellitus type: type 2 Diabetes mellitus complication status: with kidney complications Diabetes mellitus complication detail: with chronic kidney disease Diabetes mellitus nursing home insulin use: with intermission coordinator use Chronic kidney disease stage: stage 3 (moderate) Qualified Code(s): E11.22 - Type 2 diabetes mellitus with diabetic chronic kidney disease; N18.3 - Chronic kidney disease, stage 3 (moderate); N18.3 - Chronic kidney disease, stage 3 ( moderate); Z79.4 - terminal operations manager (current) use of insulin; Z79.4 - terminal operations manager ( current) use of insulin; Z79.4 - nursing home (current) use of insulin; Z79.4 - nursing home (current) use of insulin (6) CKD stage 3 due to type 2 diabetes mellitus Status: Chronic Cr is slightly up from baseline, repeat BMP in am , avoid nephrotoxins , renal dosing of meds as per current eGFR. (7) Hyponatremia Status: Acute Most likely hypovolumic hyponatremia vs SIADH, we will start IV hydration with isotonic fluid, obtain serum osm, urine osm and urine lyts. (8) DVT prophylaxis Status: Acute We will place SCD and start heparin 5000 BID Internal Medicine - H&P: HPI History of present illness: Mr. Parsons is a 81 year old male with CAD s/p 8 stents. Has hx of met prostatic cancer to liver and bones who presents as a transfer for [facility] [place] for questionable sepsis. He has apparently been admitted to the [facility] multiple times (4 x in last 3 weeks) in the last month for FTT symptoms with increased weakness, SOB, dry cough with no improvement despite antibiotic therapy. His last admission to [facility] was in 03/25 for pneumonia as infectious source, and was started on empiric antibiotics (Zosyn and Vancomycin) and IVF. During his hospital course his white count improved, lactic acid returned to normal limits , remained afebrile, and his pneumonia steadily improved clinically. Vancomycin was stopped and he received Zosyn for 4 days before antibiotics de-escalated to Augmentin. The patient will be admitted for further evaluation and management of sepsis Past Med Surg Social Fam HX - Past Medical History Medical history: arthritis, cancer, coronary artery disease, diabetes, malignancy, myocardial infarction, TIA Psychiatric history: no psych history - Past Surgical History Surgical History: angioplasty/stent, prostatectomy - Social History Smoking Status: Former smoker Smokeless Tobacco Status: No Alcohol use: none Drug use: none - Family History Mother Living Status: Hx Family Cardiac Disorders: No Hx Family Respiratory Disorders: No Hx Family Cancer: Yes Hx Family GI Disorders: No Hx Family Endocrine Disorder: No Hx Family Neuromuscular Disorders: No Hx Family Neurologic Disorders: No Hx Family HEENT Disorders: No Hx Family Autoimmune Disorders: No Internal Medicine - H&P: Meds Insulin ASPART [NovoLOG] 0 - 11 unit SQ TID MDD Sliding Scale 01/18/15 [History] Insulin Glargine,Hum.rec.anlog [Toujeo Solostar] 15 unit SQ HS 03/03/16 [History ] L. Acidophilus/Bifid. Animalis [One-A-Day Trubiotics Capsule] 1 each PO DAILY [History] Lutein 20 mg PO DAILY 04/17/16 [History] Cyanocobalamin (B-12) [Vitamin B12] 1,000 mcg IM QMONTH 01/01/17 [History] [place]-3/Dha/Epa/Fish Oil [Fish Oil 1,000 mg Softgel] 1 each PO DAILY 01/09/17 [ History] Mv-Mn/FA/Lycopene/Lut/Hb#178 [Nirav Multivit For Men Caplet] 1 each PO DAILY [History] Promethazine [Phenergan] 25 mg PO Q6HR PRN #30 tablet 03/06/17 [Rx] Benzonatate [Tessalon] 200 mg PO BID PRN #30 capsule 03/29/17 [Rx] Clopidogrel [Plavix] 75 mg PO DAILY 03/29/17 [History] Bisacodyl [Dulcolax] 10 mg RC DAILY PRN #30 supp.rect 04/10/17 [Rx] Aspirin [Lo-Dose Aspirin EC] 81 mg PO DAILY 04/16/17 [History] Tamsulosin [Flomax] 0.4 mg PO DAILY #30 cap.er.24h 04/16/17 [Rx] Ferrous Sulfate 324 mg PO DAILY 04/30/17 [History] MOM Conc [MILK OF MAGNESIA conc] 10 ml PO PRN PRN 04/30/17 [History] predniSONE [PredniSONE] 5 mg PO BID 04/30/17 [History] 3 Allergy/AdvReac Type Severity Reaction Status Date / Time amlodipine AdvReac Difficulty Verified 04/16/17 08:36 Breathing diphenhydramine AdvReac Shakiness Verified 04/16/17 08:36 lorazepam [From Ativan] AdvReac Seizure Verified 04/30/17 17:08 All Systems PM: A 10-system review of systems was performed and is negative for pertinent findings except as documented above in the HPI. - Constitutional Constitutional: no chills, no fever(s), no night sweats - Cardiovascular Cardiovascular ROS IM: no chest pain, no diaphoresis, no dyspnea, no lightheadedness, no palpitations, no syncope - Respiratory Respiratory: no cough, no dyspnea, no wheezing, no excessive phlegm production - Gastrointestinal Gastrointestinal: no abdominal pain, no diarrhea, no hematemesis, no hematochezia, no melena, no nausea, no vomiting - Neurological Neurological ROS: no confusion, no convulsions, no focal weakness, no numbness, no tingling, no tremor(s) - Constitutional Vitals: Temp Pulse Resp BP Pulse Ox 101.8 F H 99 21 118/55 96 04/04/17 07:23 04/04/17 07:23 04/04/17 07:23 04/04/17 07:23 04/04/17 07:23 General appearance: Present: A&O X 3, pleasant - Head Head exam: Present: atraumatic, normocephalic - Neck Neck exam general surgery: Present: supple, trachea midline. Absent: lymphadenopathy - Cardiovascular Cardiovascular exam: Present: RRR, +S1, +S2. Absent: diastolic murmur, gallop, rubs, systolic murmur - GI/Abdominal GI/Abdominal exam: Present: normal bowel sounds, soft, no peritoneal signs. Absent: distended, tenderness - Extremities Exam Extremities exam: Present: warm, radial pulses palpable and symmetrical. Absent : calf tenderness, cyanotic, pedal edema Internal Med - H&P Results - Labs CBC & Chem 7: 04/10/17 05:31 04/10/17 05:31
[2017-04-04] MEDS ORDERED: Naloxone 0.4 MG/ML INJ IVP PRN (07:37)
[2017-04-04] MEDS ORDERED: Mag Hydrox/Al Hydrox/Simeth 30 ML UDC PO PRN (07:37)
[2017-04-04] MEDS ORDERED: Ondansetron ODT 4 MG TAB.RAPDIS SL PRN (07:37)
[2017-04-04] MEDS ORDERED: D5% in Water 1,000 ML IVC PRN (07:58)
[2017-04-04] MEDS ORDERED: Dextrose Gel 15 GM/37.5 ML TUBE PO PRN ×2 (07:58)
[2017-04-04] MEDS ORDERED: *HR* Dextrose 50 % in Water (Syg) 50 ML SYRINGE IVP PRN (07:58)
[2017-04-04] MEDS ORDERED: NON-FORMULARY MEDICATION 1 EACH EACH (Cyanocobalamin (B-12) 1,000 MCG) IM SCH (08:00)
[2017-04-04 08:04] LABS: Basophils % 0.1 %; Hematocrit 32.6 % (37.5-50.1); Hemoglobin 10.4 g/dL (12.9-16.9); Immature Granulocytes % 0.6 % (0-4); Lymphocytes # 0.7 K/mcL (0.6-4.6); Lymphocytes % 4.7 %; Mean Corpuscular HGB Conc 31.9 g/dL (31.6-35.5); Mean Corpuscular Hemoglobin 27.7 pg (28.0-33.3); Mean Corpuscular Volume 86.7 fL (83.0-100.0); Mean Platelet Volume 9.4 fL (9.4-12.4); Monocytes % 7.4 %; Platelet Count 191 K/mcL (140-400); Red Blood Count 3.76 M/mcL (4.19-5.50); Red Cell Distribution Width 14.7 % (11.5-14.5); Segmented Neutrophils % 87.2 %
[2017-04-04] MEDS ORDERED: Insulin LISPRO 300 UNITS/3 ML VIAL SQ SCH (08:15)
[2017-04-04 08:21] LABS: INR 1.2
[2017-04-04 08:22] LABS: Activated Partial Thrombo Time 27.1 Seconds (26.0-36.0)
[2017-04-04] MEDS: Lactobacillus 1 EACH CAP.SPRINK PO SCH (08:25)
[2017-04-04] MEDS: Acetaminophen 325 MG TABLET PO PRN (08:25)
[2017-04-04] MEDS: Metoprolol XL (24 HR) Succ 25 MG TAB.ER.24H PO SCH (08:25)
[2017-04-04] MEDS: predniSONE 5 MG TABLET PO SCH ×2 (08:25→16:32)
[2017-04-04] MEDS: amLODIPine 5 MG TABLET PO SCH (08:25)
[2017-04-04 08:37] LABS: Albumin 3.4 g/dL (3.5-5.7); Albumin/Globulin Ratio 1.4 (1.1-2.2); Bilirubin,Total 0.8 mg/dL (0.3-1.0); Calcium 8.7 mg/dL (8.6-10.3); Globulin 2.4 g/dL (2.4-3.5); Magnesium 1.9 mg/dL (1.6-2.6); Phosphorous 3.5 mg/dL (2.7-4.5); Potassium 5.1 mEq/L (3.5-5.1); Total Protein 5.8 g/dL (6.4-8.9)
[2017-04-04] MEDS ORDERED: Vancomycin 750 MG in D5% in Water 250 ML IVPB ONE (08:47)
[2017-04-04] MEDS ORDERED: Lutein [Lutein] 20 MG PO SCH (09:00)
[2017-04-04] MEDS ORDERED: Multivit/Ca/Min/Fe/FA 1 TAB TABLET PO SCH (09:00)
[2017-04-04] MEDS ORDERED: (Omega-3/Dha/Epa/Fish Oil [Fish Oil 1,000 Mg Softgel) PO SCH (09:00)
[2017-04-04 09:04] LABS: Hemoglobin A1C 8.8 %
[2017-04-04 09:07] LABS: INR 1.2
[2017-04-04] MEDS: 0.9 % Sodium Chloride 1,000 ML IVC SCH ×2 (09:16→22:40)
[2017-04-04] MEDS: Multivit/Ca/Min/Fe/FA 1 TAB TABLET PO SCH (09:22)
[2017-04-04] MEDS: Insulin LISPRO 300 UNITS/3 ML VIAL SQ SCH ×5 (11:07→21:00)
[2017-04-04] MEDS ORDERED: INSULIN ASPART 5 UNIT SQ SCH (12:00)
[2017-04-04] MEDS ORDERED: Vancomycin 250 MG in D5% in Water 100 ML IVPB ONE (12:24)
[2017-04-04] MEDS: *HR* Morphine 2 MG/ML SYRINGE IVP PRN (15:49)
[2017-04-04] MEDS: Ipratropium/Albuterol Neb 3 ML IH SCH ×2 (16:17→22:56)
[2017-04-04] MEDS: *HR* Heparin 5,000 UNIT/ML VIAL SQ SCH (16:31)
[2017-04-04] MEDS: Piperacillin/Tazobactam 3.375 GM/200 ML BAG IVPB SCH (16:32)
[2017-04-04] MEDS ORDERED: *HR* HYDROmorphone (PF) 1 MG/ML SYRINGE IVP ONE (17:00)
[2017-04-04] MEDS ORDERED: Insulin DETEMIR 100 UNIT/ML X5UNITS SQ SCH (21:00)
[2017-04-05] MEDS: Piperacillin/Tazobactam 3.375 GM/200 ML BAG IVPB SCH ×2 (00:58→08:01)
[2017-04-05] MEDS: *HR* Morphine 2 MG/ML SYRINGE IVP PRN ×2 (01:29→06:24)
[2017-04-05 01:32] LABS: Bilirubin,Urine Negative (Negative); Blood,Urine Trace (Negative); Clarity,Urine Cloudy (Clear); Color,Urine Yellow (Yellow); Glucose,Urine (UA) >=1000 mg/dL (Normal); Ketones,Urine Negative (Negative); Leukocyte Esterase,Urine Negative (Negative); Nitrite,Urine Negative (Negative); Protein,Urine 100 mg/dL (Neg-Trace); Specific Gravity,Urine 1.027 (1.010-1.025); Urobilinogen,Urine Normal (Normal)
[2017-04-05 01:34] LABS: Bacteria,Urine None Seen per hpf (None-Few); Hyaline Casts,Urine None Seen per lpf (None-Few); RBC,Urine 0-3 per hpf (0-3); Squamous Epithelial Cell,Urine Moderate per lpf (None-Few)
[2017-04-05] MEDS: Ipratropium/Albuterol Neb 3 ML IH SCH ×2 (03:59→10:04)
[2017-04-05] MEDS: *HR* Heparin 5,000 UNIT/ML VIAL SQ SCH ×2 (05:58→18:34)
[2017-04-05] MEDS ORDERED: Vancomycin 1,000 MG in D5% in Water 250 ML IVPB ONE (06:00)
[2017-04-05 07:59] LABS: Mean Corpuscular HGB Conc 32.1 g/dL (31.6-35.5); Mean Corpuscular Volume 87.2 fL (83.0-100.0); Mean Platelet Volume 10.4 fL (9.4-12.4); Platelet Count 163 K/mcL (140-400); Red Blood Count 3.21 M/mcL (4.19-5.50); Red Cell Distribution Width 14.8 % (11.5-14.5)
[2017-04-05] MEDS: Insulin LISPRO 300 UNITS/3 ML VIAL SQ SCH ×7 (08:00→22:51)
[2017-04-05] MEDS: amLODIPine 5 MG TABLET PO SCH (08:01)
[2017-04-05] MEDS: Acetaminophen 325 MG TABLET PO PRN (08:01)
[2017-04-05] MEDS: Lactobacillus 1 EACH CAP.SPRINK PO SCH (08:01)
[2017-04-05] MEDS: Multivit/Ca/Min/Fe/FA 1 TAB TABLET PO SCH (08:01)
[2017-04-05] MEDS: predniSONE 5 MG TABLET PO SCH ×2 (08:01→18:34)
[2017-04-05] MEDS: Metoprolol XL (24 HR) Succ 25 MG TAB.ER.24H PO SCH (08:01)
[2017-04-05 08:05] LABS: Calcium 8.1 mg/dL (8.6-10.3); Potassium 4.5 mEq/L (3.5-5.1)
[2017-04-05] MEDS ORDERED: Aminoglycoside Consult 1 EACH MC ONE (08:22)
--- NOTE | 2017-04-05 10:09 | Internal Med Progress Note ---
<JesseTitus - Last Filed: 04/05/17 09:59> Date of Encounter: 04/05/17 Time of Encounter: 07:30 - Assessment and plan (1) SIRS (systemic inflammatory response syndrome) Current Visit: Yes Status: Acute Assessment and plan: Patient has elevated white count, tachycardia, and fever. No source of infection has been identified yet. Patient was recently treated for pneumonia, but the lungs appear clear on imaging. Will continue to follow cultures and labs. Discontinued vanc and zosyn currently. Continue to monitor symptoms. (2) Lactic acidosis Current Visit: Yes Status: Acute Assessment and plan: See plan of care above (3) Abdominal pain Current Visit: Yes Status: Acute Assessment and plan: Suspect constipation as cause Added senna plus Tylenol, percocet for pain control U/S Gallbladder, NPO for study Qualifiers: Abdominal location: lower abdomen, unspecified Qualified Code(s): R10.30 - Lower abdominal pain, unspecified (4) Constipation Current Visit: Yes Status: Acute Assessment and plan: No BMs x5-6 days. Patient is requesting enema. Will start with senna plus 2 tablets BID and progress to enema if there is no improvement. Suspect that this is the main source of his abdominal pain. Qualifiers: Constipation type: slow transit constipation Qualified Code(s): K59.01 - Slow transit constipation (5) CKD stage 3 due to type 2 diabetes mellitus Current Visit: Yes Status: Chronic Assessment and plan: Patient has chronic kidney disease stage 3 Improving since he received IVF Cr 1.71 < 1.81 baseline is 1.3-1.5 (6) Failure to thrive Current Visit: Yes Status: Chronic Assessment and plan: Multiple admissions to [facility] for FTT. Main complaints of SOB and weakness. Family expressed desire to improve patient conditioning so he could receive treatment for prostate cancer. Qualifiers: Failure to thrive age range: in adult Qualified Code(s): R62.7 - Adult failure to thrive (7) Hyponatremia Current Visit: Yes Status: Acute Assessment and plan: Received 2 L of IVF last night Corrected value of 130 today Will monitor (8) CAD (coronary artery disease) Current Visit: Yes Status: Chronic Assessment and plan: Continue home medications Qualifiers: Coronary Disease-Associated Artery/Lesion type: [place] artery [place] vs. transplanted heart: [place] heart Associated angina: with unstable angina Qualified Code(s): I25.110 - Atherosclerotic heart disease of [place] coronary artery with unstable angina pectoris (9) Diabetes Current Visit: Yes Status: Chronic Assessment and plan: Continue levemir and Medium dose SSI Qualifiers: Diabetes mellitus type: type 2 Diabetes mellitus complication status: with kidney complications Diabetes mellitus complication detail: with chronic kidney disease Diabetes mellitus terminal system operator insulin use: with halfway use Chronic kidney disease stage: stage 3 (moderate) Qualified Code(s): E11.22 - Type 2 diabetes mellitus with diabetic chronic kidney disease; N18.3 - Chronic kidney disease, stage 3 (moderate); N18.3 - Chronic kidney disease, stage 3 ( moderate); Z79.4 - residential (current) use of insulin; Z79.4 - residential ( current) use of insulin; Z79.4 - residential (current) use of insulin; Z79.4 - residential (current) use of insulin (10) Prostate cancer metastatic to bone Current Visit: Yes Status: Chronic Assessment and plan: Recently found metastasis to both liver and bone. Patient and family hoping to improve conditioning so that he can receive treatment. 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 (12) DVT prophylaxis Current Visit: No Status: Acute Assessment and plan: Heparin Subq - Subjective Interval history: Patient is a 81 y/o male with history of metastatic prostate cancer to liver and bone who presented to [facility] after a fall. He admitted to shortness of breath, dry cough, and weakness. This is unchanged. He was sent to [facility] due to questionable sepsis, with elevated WBC, tachycardia,fever. There was no identifiable source. Denies any fever, chills, or chest pain. His biggest complaint is lower abdominal pain with radiation into the left shoulder. This is in addition to constipation x5-6. - Constitutional Vitals: Temp Pulse Resp BP Pulse Ox 99.0 F 107 17 121/57 93 04/05/17 07:00 04/05/17 07:00 04/05/17 07:00 04/05/17 07:00 04/05/17 07:00 General appearance: Present: cooperative, A&O X 3, answers questions appropriately - Head Head exam: Present: atraumatic, normal inspection, normocephalic - Neck Neck exam general surgery: Present: trachea midline - Respiratory Respiratory exam: Present: CTAB. Absent: accessory muscle use, respiratory distress - Cardiovascular Cardiovascular exam: Present: RRR, +S1, +S2 - GI/Abdominal GI/Abdominal exam: Present: distended, normal bowel sounds, soft, tenderness ( Lower abdomen, L > R. Patient has significantly less tenderness when pressing while auscultating.), no peritoneal signs. Absent: guarding, rebound, rigid - Expanded GI/Abdominal Exam GI/Abdominal exam expanded: Absent: Segovia's sign - Neurological Exam Neurological exam: Present: alert, oriented X3 - Psychiatric Psychiatric exam: Present: normal affect, normal mood - Skin Skin exam: Present: dry, warm Internal Medicine: Result - Labs CBC & Chem 7: 04/05/17 04:17 04/05/17 04:17 Labs: Short CBC 04/05/17 Range/Units 04:17 WBC 14.1 H (4.3-11.1) K/mcL Hgb 9.0 L (12.9-16.9) g/dL Hct 28.0 L (37.5-50.1) % Plt Count 163 (140-400) K/mcL BMP 04/05/17 04:17 Sodium 127 L Potassium 4.5 Chloride 98 Carbon Dioxide 22 L BUN 24 H Creatinine 1.71 H Glucose 214 H Calcium 8.1 L Cardiac Enzymes 04/04/17 04/04/17 Range/Units 14:01 19:08 Troponin I < 0.03 < 0.03 (< 0.04) ng/mL Urine 04/05/17 Range/Units 01:20 Urine Color Yellow (Yellow) Urine Clarity Cloudy A (Clear) Urine pH 6.0 (5.0-8.0) pH Units Ur Specific [place] 1.027 H (1.010-1.025) Urine Protein 100 H (Neg-Trace) mg/dL Urine Glucose (UA) >=1000 H (Normal) mg/dL - ABG Interpretation ABG results: PT/INR, D-dimer PT 13.0 Seconds (9.4-12.1) H 04/04/17 08:53 - Impressions Impressions Clavicle X-Ray 04/04/17 15:41 IMPRESSION: No acute displaced fracture. D/ / Kolby Carlson MD / Kolby Carlson MD Interpreting Provider: Kolby Carlson MD Consult Discharge Plan - Plan Referrals: Rozina Villeda MD [Primary Care Provider] - 04/12/17 10:30 am <Natan Freire T - Last Filed: 04/05/17 12:42> Date of Encounter: 04/05/17 - Constitutional Vitals: Temp Pulse Resp BP Pulse Ox 98.9 F 80 16 124/64 95 04/05/17 10:33 04/05/17 10:33 04/05/17 10:33 04/05/17 10:33 04/05/17 10:33 Internal Medicine: Result - Labs CBC & Chem 7: 04/05/17 04:17 04/05/17 04:17 Labs: Short CBC 04/05/17 Range/Units 04:17 WBC 14.1 H (4.3-11.1) K/mcL Hgb 9.0 L (12.9-16.9) g/dL Hct 28.0 L (37.5-50.1) % Plt Count 163 (140-400) K/mcL BMP 04/05/17 04:17 Sodium 127 L Potassium 4.5 Chloride 98 Carbon Dioxide 22 L BUN 24 H Creatinine 1.71 H Glucose 214 H Calcium 8.1 L Cardiac Enzymes 04/04/17 04/04/17 Range/Units 14:01 19:08 Troponin I < 0.03 < 0.03 (< 0.04) ng/mL Urine 04/05/17 Range/Units 01:20 Urine Color Yellow (Yellow) Urine Clarity Cloudy A (Clear) Urine pH 6.0 (5.0-8.0) pH Units Ur Specific [place] 1.027 H (1.010-1.025) Urine Protein 100 H (Neg-Trace) mg/dL Urine Glucose (UA) >=1000 H (Normal) mg/dL - ABG Interpretation ABG results: PT/INR, D-dimer PT 13.0 Seconds (9.4-12.1) H 04/04/17 08:53 - Impressions Impressions Clavicle X-Ray 04/04/17 15:41 IMPRESSION: No acute displaced fracture. D/ / Kolby Carlson MD / Kolby Carlson MD Interpreting Provider: Kolby Carlson MD - Attending Attestation I have independently seen and examined this patient today 04/05/2017 and discussed the plan of care with the patient at the bedside, and the resident physicians. 81-year-old male with metastatic prostate cancer, atrial flutter and fibrillation status post ablation, not on anticoagulation due to history of epistaxis, hypertension and diabetes mellitus. The patient was transferred from an outside facility for evaluation for sepsis. As at this time, there is no source of infection found. Paper chart from outside facility reviewed. Workup at her facility shows leukocytosis, lactic acidosis, abdomen and pelvis CT scan without contrast was essentially normal. Patient is seen and evaluated at the bedside, he complains of lower abdominal pain, attributable to constipation. He denies any other symptoms. Patient reports his primary complaint at the referring facility was a fall. On physical examination patient is sitting out of bed to chair, in no form of respiratory or painful distress, speaks sentences and is not dyspneic. He is not cyanotic, he is not pale. Oral mucosa is dry. His chest is clear to auscultation bilaterally. His heart sounds are S1-S2 and regular. His abdomen is soft and nontender. Segovia's sign is negative. Bowel sounds are present in all quadrants. There is no palpable enlarged organ. He has no pedal edema. Labs and imaging reviewed: Leukocytosis is improving from outside facility, hemoglobin is stable at baseline, corrected pseudohyponatremia. Coagulation panel is normal. Chest x-ray is unremarkable. Assessment and plan #SIRS: Obtain gallbladder ultrasound to completely rule out any source of infection. Obtain influenza a and B antigen. #Constipation: Add senna plus the patient's current regimen. Static lactic acidosis: Source unknown, possibly secondary to fall, no evidence of rhabdomyolysis, renal function is at baseline, no evidence of hepatic abnormality. Continue to monitor. #Fall: PTOT eval prior to discharge Other chronic medical conditions are stable Rest of details as in the resident physicians documentation.
[2017-04-05] MEDS: *HR* OxyCODONE/APAP 5/325 TABLET PO PRN (10:27)
[2017-04-05] MEDS: Sennosides/Docusate Sodium TABLET PO SCH ×2 (10:37→22:31)
[2017-04-05 11:29] LABS: Potassium,Urine 60.6 mEq/L
[2017-04-05] MEDS: MOM Conc 10 ML UD.LIQ PO SCH (15:26)
[2017-04-05] MEDS: Ipratropium/Albuterol Neb 3 ML IH PRN (18:29)
[2017-04-05] MEDS ORDERED: *HR* Metoprolol 5 MG/5 ML VIAL IVP ONE (19:01)
[2017-04-05] MEDS: *HR* LORazepam 2 MG/ML VIAL IVP PRN (19:31)
[2017-04-05] MEDS ORDERED: Insulin DETEMIR 100 UNIT/ML X5UNITS SQ SCH (21:00)
[2017-04-05] MEDS ORDERED: Haloperidol Lactate 5 MG/ML VIAL IVP ONE (22:13)
[2017-04-05] MEDS: Insulin DETEMIR 100 UNIT/ML X5UNITS SQ SCH (22:33)
[2017-04-06 01:13] LABS: Hemoglobin 8.7 g/dL (12.9-16.9); Mean Corpuscular HGB Conc 32.2 g/dL (31.6-35.5); Mean Corpuscular Hemoglobin 27.3 pg (28.0-33.3); Mean Corpuscular Volume 84.6 fL (83.0-100.0); Mean Platelet Volume 10.1 fL (9.4-12.4); Platelet Count 175 K/mcL (140-400); Red Blood Count 3.19 M/mcL (4.19-5.50); Red Cell Distribution Width 14.6 % (11.5-14.5)
[2017-04-06 01:43] LABS: Calcium 8.6 mg/dL (8.6-10.3); Potassium 4.4 mEq/L (3.5-5.1)
[2017-04-06] MEDS: *HR* Heparin 5,000 UNIT/ML VIAL SQ SCH ×2 (06:57→16:16)
--- NOTE | 2017-04-06 07:26 | Electrocardiograph Report ---
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
--- NOTE | 2017-04-06 07:28 | Electrocardiograph Report ---
[address] [place] [address] Test Date: 2017-04-04 Pat Name: Lauro Parsons Department: 112 Room: 2A12 Gender: M Piling Cutter: : 1935 Requested By: Natan Freire Order Number: [id number] Reading MD: Derrick Chaney MD Measurements Intervals [place] Rate: 117 P: 39 MS: 167 QRS: -27 QRSD: 77 T: 3 QT: 295 QTc: 365 Interpretive Statements SINUS TACHYCARDIA INFERIOR MYOCARDIAL INFARCTION, PROBABLY OLD ANTEROSEPTAL MYOCARDIAL INFARCTION, PROBABLY OLD Electronically Signed On 04-06-2017 7:27:13 EST by Derrick Chaney MD
[2017-04-06] MEDS: Sennosides/Docusate Sodium TABLET PO SCH ×2 (08:16→20:27)
[2017-04-06] MEDS: Metoprolol XL (24 HR) Succ 25 MG TAB.ER.24H PO SCH (08:17)
[2017-04-06] MEDS: Insulin LISPRO 300 UNITS/3 ML VIAL SQ SCH ×7 (08:17→20:42)
[2017-04-06] MEDS: predniSONE 5 MG TABLET PO SCH ×2 (08:17→18:24)
[2017-04-06] MEDS: amLODIPine 5 MG TABLET PO SCH (08:17)
[2017-04-06] MEDS: Multivit/Ca/Min/Fe/FA 1 TAB TABLET PO SCH (08:17)
[2017-04-06] MEDS: Lactobacillus 1 EACH CAP.SPRINK PO SCH (08:17)
[2017-04-06] MEDS: MOM Conc 10 ML UD.LIQ PO SCH (08:18)
[2017-04-06] MEDS ORDERED: *HR* Enoxaparin 80 MG/0.8 ML SYRINGE SQ STA (11:46)
[2017-04-06] MEDS ORDERED: Bisacodyl 10 MG RECTAL SUPPOSITORY RC PRN (11:47)
--- NOTE | 2017-04-06 13:48 | Internal Med Progress Note ---
<Marky Maddox - Last Filed: 04/06/17 14:03> Date of Encounter: 04/06/17 Time of Encounter: 13:44 - Assessment and plan (1) SIRS (systemic inflammatory response syndrome) Current Visit: Yes Status: Acute Assessment and plan: Patient continues to be tachycardic with heart rate in 110s to 120s. Febrile overnight. Unclear source of infection. Awaiting cultures. leukocytosis improving. Reports abdominal pain, shortness of breath. nurse reported green sputum this morning will get sputum culture. Currently for ruling out DVT/PE which can be cause of unexplained fever. Obtaining bilateral lower extremity venous Dopplers, VQ scan We will give patient 1 dose of Lovenox not on antibiotics due to unclear source. (2) Lactic acidosis Current Visit: Yes Status: Acute Assessment and plan: cause unclear resolved now 2.9 on admission now 2.1 (3) Abdominal pain Current Visit: Yes Status: Acute Assessment and plan: Suspect constipation as cause Patient has not had a bowel movement in the last 5 days. This is complicated by being on narcotic pain medication. Ultrasound gallbladder negative. CT abdomen/pelvis without contrast negative. Patient will receive daily milk of magnesia. Also started prn Dulcolax suppository. (4) Prostate cancer metastatic to multiple sites Current Visit: Yes Status: Acute Assessment and plan: History of prostate cancer metastasis to bone and liver. Patient is considered palliative according to oncology notes. Currently he is not on any radiation or chemotherapy treatment. Follow-up outpatient with oncology. Code(s): C61 - Malignant neoplasm of prostate (5) CAD (coronary artery disease) Current Visit: Yes Status: Chronic Assessment and plan: hx of PCIx8 denies chest pain sinus tachycardia on EKG tro negative x3 echo 03/12/2017 EF 60% with no wall motion abnormalaties. family requests cardiology consult because they state everytime he has symptoms of shortness of breath, tachycardia, "he ends up with a stent". cardiology consult requested (6) CKD stage 3 due to type 2 diabetes mellitus Current Visit: Yes Status: Chronic Assessment and plan: Patient has chronic kidney disease stage 3 Improving since he received IVF Cr 1.71 < 1.81 baseline is 1.3-1.5 continue to monitor (7) Diabetes Current Visit: Yes Status: Chronic Assessment and plan: Continue levemir and Medium dose SSI (8) Failure to thrive Current Visit: Yes Status: Chronic Assessment and plan: Multiple admissions to [facility] for FTT. Main complaints of SOB and weakness. Family expressed desire to improve patient conditioning so he could receive treatment for prostate cancer. (9) Hyponatremia Current Visit: Yes Status: Acute Assessment and plan: chronic hyponatremia stable alert and oriented x3 will continue to monitor - Subjective Interval history: Patient continues to be tachycardic. He continues to have abdominal pain. He has not had bowel movement. Reports his abdominal pain worsens with inspiration. This morning patient is on 4 L oxygen. Family is requesting a cardiology consult has has shortness of breath, abdominal pain previously resulted in him having invasive cardac intervention (has hx of CAD s/p PCI x 8 stents). - Constitutional Vitals: Temp Pulse Resp BP Pulse Ox 97.9 F 115 16 132/74 95 04/06/17 11:24 04/06/17 11:24 04/06/17 11:24 04/06/17 11:24 04/06/17 11:24 General appearance: Present: cooperative, A&O X 3, answers questions appropriately - Other Additional findings: General: mild distress Heart: sinus tachycardia Lungs: Clear to auscultation bilaterally Abdomen: distended, pain with palpation diffusely. +BS Skin: warm and dry Extremities: 1+ pedal edema Neuro: Alert and oriented 3 Vascular: Pedal and radial pulses 2 out of 4 Internal Medicine: Result - Labs CBC & Chem 7: 04/06/17 01:03 04/06/17 01:03 Labs: Short CBC 04/06/17 Range/Units 01:03 WBC 11.9 H (4.3-11.1) K/mcL Hgb 8.7 L (12.9-16.9) g/dL Hct 27.0 L (37.5-50.1) % Plt Count 175 (140-400) K/mcL BMP 04/06/17 01:03 Sodium 128 L Potassium 4.4 Chloride 98 Carbon Dioxide 22 L BUN 29 H Creatinine 1.75 H Glucose 186 H Calcium 8.6 Cardiac Enzymes 04/05/17 04/06/17 Range/Units 19:33 01:03 Troponin I < 0.03 < 0.03 (< 0.04) ng/mL - ABG Interpretation ABG results: PT/INR, D-dimer PT 13.0 Seconds (9.4-12.1) H 04/04/17 08:53 - Impressions Impressions Gallbladder Ultrasound 04/05/17 00:00 IMPRESSION: Gallbladder is contracted and poorly evaluated. No biliary dilatation. No pericholecystic fluid. Liver appears heterogeneous with slight nodular contour. No discrete lesion visualized. Findings can be seen in cirrhosis. D/ / Shea Mitchell MD / Shea Mitchell MD Interpreting Provider: Shea Mitchell MD Consult Discharge Plan - Plan Referrals: Rozina Villeda MD [Primary Care Provider] - 04/12/17 10:30 am <Gila Marie - Last Filed: 04/06/17 14:48> Date of Encounter: 04/06/17 - Constitutional Vitals: Temp Pulse Resp BP Pulse Ox 97.9 F 115 16 132/74 95 04/06/17 11:24 04/06/17 11:24 04/06/17 11:24 04/06/17 11:24 04/06/17 11:24 Internal Medicine: Result - Labs CBC & Chem 7: 04/06/17 01:03 04/06/17 01:03 Labs: Short CBC 04/06/17 Range/Units 01:03 WBC 11.9 H (4.3-11.1) K/mcL Hgb 8.7 L (12.9-16.9) g/dL Hct 27.0 L (37.5-50.1) % Plt Count 175 (140-400) K/mcL BMP 04/06/17 01:03 Sodium 128 L Potassium 4.4 Chloride 98 Carbon Dioxide 22 L BUN 29 H Creatinine 1.75 H Glucose 186 H Calcium 8.6 Cardiac Enzymes 04/05/17 04/06/17 Range/Units 19:33 01:03 Troponin I < 0.03 < 0.03 (< 0.04) ng/mL - ABG Interpretation ABG results: PT/INR, D-dimer PT 13.0 Seconds (9.4-12.1) H 04/04/17 08:53 - Impressions Impressions Gallbladder Ultrasound 04/05/17 00:00 IMPRESSION: Gallbladder is contracted and poorly evaluated. No biliary dilatation. No pericholecystic fluid. Liver appears heterogeneous with slight nodular contour. No discrete lesion visualized. Findings can be seen in cirrhosis. D/ / Shea Mitchell MD / Shea Mitchell MD Interpreting Provider: Shea Mitchell MD Pulmonary Perfusion Imaging 04/06/17 11:46 IMPRESSION: Very low probability for pulmonary embolism. D/ / Liam Schneider MD / Liam Schneider MD Interpreting Provider: Liam Schneider MD - Attending Attestation I have reviewed the progress note,obtained and documented by the resident and I personally participated in the hanson components. I have discussed the case and management of the patient's care. The following comments revise or confirm relevant hanson components of their note. Systemic inflammatory response syndrome with unknown etiology. Patient does have some symptoms suggestive of a URI with intermittent expectoration-will obtain sputum for culture if patient is able to provide a sample. Potential contributing effect to his difficulty breathing and hypoxia could be the significant abdominal distention due to constipation-trial of Dulcolax suppository and if unsuccessful follow-up with enima. Also given his hypoxia, advanced age and limited mobilization, history of malignancy, will need to rule out DVT and PE in this case. Check VQ scan as well as lower estimate the duplex. We will cover him with one dose of therapeutic Lovenox prior to obtaining the results of these studies Rest of the assessment and plan is concurrent with resident documentation
[2017-04-06 13:55] LABS: Adenovirus Not Detected (Not Detect); Bordetella Pertussis Not Detected (Not Detect); Chlamydophila pneumoniae Not Detected (Not Detect); Coronavirus 229E Not Detected (Not Detect); Coronavirus HKU1 Not Detected (Not Detect); Coronavirus NL63 Not Detected (Not Detect); Coronavirus OC43 Not Detected (Not Detect); Human Metapneumovirus Not Detected (Not Detect); Human Rhinovirus/Enterovirus Not Detected (Not Detect); Influenza A Subtype 2009 H1 Not Detected (Not Detect); Influenza A Untypeable Not Detected (Not Detect); Influenza B Not Detected (Not Detect); Mycoplasma pneumoniae Not Detected (Not Detect); Parainfluenza Virus 1 Not Detected (Not Detect); Parainfluenza Virus 2 Not Detected (Not Detect); Parainfluenza Virus 3 Not Detected (Not Detect); Parainfluenza Virus 4 Not Detected (Not Detect); Respiratory Syncytial Virus Not Detected (Not Detect)
[2017-04-06] MEDS: Acetaminophen 325 MG TABLET PO PRN (13:59)
--- NOTE | 2017-04-06 14:07 | Cardiology Consult Note ---
<Elizabeth Kaur Cheryl - Last Filed: 04/06/17 14:51> Date of Encounter: 04/06/17 Time of Encounter: 13:40 Assessment and Plan (1) SOB (shortness of breath) Current Visit: Yes Status: Acute Symptoms are likely multifactorial. Multiple recent admissions ([facility], [facility], [facility]), treated for PNA. Continues to be tachycardiac, Tmax 102.7 overnight, suspect infectious etiology. Reports 1-2 month history of shortness of breath associated with cough. Sputum production today "green" TTE shows preserved LVE, 65%. Clinically appears euvolemic upon exam. V/Q scan: low probability for PE, BLE venous duplex pending. Given recent SVT ablation, recommend TTE to evaluate for effusion. (2) CAD (coronary artery disease) Current Visit: Yes Status: Chronic Hx of CAD s/p PCI (reports x8 stents). Most recent LHC 02/2016 which demonstrated patent stents (proximal-mid RCA, mLAD , and pLCx); otherwise moderate non-obstructive CAD. No ischemic ECG changes noted. Denies chest pain. Troponin negative x5. Presented with FLORINDA on CKD. H/H continues to downtrend, now 8.7. TTE 03/12/17 demonstrated preserved LVEF, 60%. Can consider ischemic evaluation with persistent symptoms in the outpatient setting, stress vs. LHC. Qualifiers: Coronary Disease-Associated Artery/Lesion type: [place] artery [place] vs. transplanted heart: [place] heart Associated angina: with unstable angina Qualified Code(s): I25.110 - Atherosclerotic heart disease of [place] coronary artery with unstable angina pectoris (3) SVT (supraventricular tachycardia) Current Visit: Yes Status: Acute No SVT noted per telemetry review. Recent SVT ablation at [facility] on 03/19/17. Recommend follow-up as outpatient with [facility] EP. (4) Abdominal pain Current Visit: Yes Status: Acute Patient CC is LLQ abdominal pain, reportedly due to constipation. Defer further mgmt to primary service. Qualifiers: Abdominal location: left lower quadrant Qualified Code(s): R10.32 - Left lower quadrant pain (5) Malignant neoplasm of prostate metastatic to liver Current Visit: Yes Status: Acute Discussion w patient/family: The assessment and plan as outlined above was discussed with the patient and/or family members who expressed understanding and agreement. All questions were answered. Thank you for involving us in the care of your patient. Please call with any questions. The patient will be discussed and reviewed with Dr. Maddox, changes to be made accordingly. History of Present Illness Consult date: 04/06/17 Requesting physician: Marky Maddox Consult reason: Hx of CAD, shortness of breath Chief complaint: Constipation, dyspnea History of present illness: Mr. Parsons is a 81 year old male with PMHx significant for CAD s/p PCI, DMII , CKD-3, mets prostate CA, PAF, and recent SVT ablation at [facility] who presented to the ED (from [facility]) with worsening shortness of breath, abdominal pain, and fall due to weakness. Patient reports 4-5 month history of worsening shortness of breath associated with cough. States he is unable to take a deep breath. Denies chest pain/discomfort, leg swelling, palpitations, or dizziness. He reports that symptoms are similar to previous episodes when he needed a stent. Recent admission at [place] with transfer to [facility] for second opinion and subsequent SVT ablation. Pt/daughter also note that he has went "downhill" since ablation. Prior CV testing includes: SVT ablation at [facility] 03/19/17 TTE 03/12/17: EF 60%, mild LVDD, mild AR TTE 03/05/16: EF 55%, mild-moderate AR, normal wall motion LHC 03/06/16: mild to moderate CAD, FFR: 0.86, 0.85 to RCA, patient proximal & mid RCA stent, patent LCx stent. C 11/05/14: successful PTCA/ROBBIE to pLAD, moderate residual CAD TTE 11/04/14: EF 65%, mild LVDD, mild to moderate AR, normal wall motion Past Med Surg Social Fam HX - Past Medical History Attestation: Yes The following information was validated with the patient. Source: patient, obtained from family Medical history: arthritis, atrial fibrillation, cancer, coronary artery disease , diabetes, malignancy, myocardial infarction, renal disease, TIA Psychiatric history: no psych history - Past Surgical History Surgical History: angioplasty/stent, prostatectomy - Social History Smoking Status: Former smoker Smokeless Tobacco Status: No Alcohol use: none Drug use: none - Family History Mother Living Status: Hx Family Cardiac Disorders: No Hx Family Respiratory Disorders: No Hx Family Cancer: Yes Hx Family GI Disorders: No Hx Family Endocrine Disorder: No Hx Family Neuromuscular Disorders: No Hx Family Neurologic Disorders: No Hx Family HEENT Disorders: No Hx Family Autoimmune Disorders: No Medications and Allergies Insulin ASPART [NovoLOG] 5 unit SQ TID MDD Sliding Scale 01/18/15 [History] Insulin Glargine,Hum.rec.anlog [Toujeo Solostar] 15 unit SQ HS 03/03/16 [History ] L. Acidophilus/Bifid. Animalis [One-A-Day Trubiotics Capsule] 1 each PO DAILY [History] Lutein 20 mg PO DAILY 04/17/16 [History] Cyanocobalamin (B-12) [Vitamin B12] 1,000 mcg IM QMONTH 01/01/17 [History] [place]-3/Dha/Epa/Fish Oil [Fish Oil 1,000 mg Softgel] 1 each PO DAILY 01/09/17 [ History] Mv-Mn/FA/Lycopene/Lut/Hb#178 [Nirav Multivit For Men Caplet] 1 each PO DAILY [History] Promethazine [Phenergan] 25 mg PO Q6HR PRN #30 tablet 03/06/17 [Rx] Benzonatate [Tessalon] 200 mg PO BID PRN #30 capsule 03/29/17 [Rx] Clopidogrel [Plavix] 75 mg PO DAILY 03/29/17 [History] Guaifenesin [Mucinex] 600 mg PO Q12H PRN 03/29/17 [History] amLODIPine [Norvasc] 5 mg PO DAILY #90 tablet 03/29/17 [Rx] Ferrous Sulfate 325 mg PO DAILY 04/04/17 [History] Metoprolol XL (24 HR) Succ [Toprol XL] 25 mg PO DAILY 04/04/17 [History] predniSONE [PredniSONE] 5 mg PO BIDWM 04/04/17 [History] 3 Allergy/AdvReac Type Severity Reaction Status Date / Time diphenhydramine AdvReac Shakiness Verified 03/12/17 08:42 All Systems Review: A 10-system review of systems was performed and is negative for pertinent findings except as documented above in the HPI. Physical Examination Vital Signs, Last 4 Hours Temp Pulse Resp BP Pulse Ox 04/06/17 11:24 97.9 F 115 16 132/74 95 General: Conversant, Other (appears chronically ill) Cardiac: Reg Rate and Rhythm, Normal S1 and S2 Lungs: Normal Breath Sounds Neuro: Alert and responsive Abdomen: Soft, Other (tender LLQ) Skin: No rashes noted on visualized skin Musculoskeletal: No Chest Wall Tenderness Extremities: No Edema, Normal Pulses Results 04/06/17 01:03 04/06/17 01:03 Lab Results 04/05/17 04/06/17 04/06/17 19:33 01:03 01:03 WBC 11.9 H Hgb 8.7 L Hct 27.0 L Plt Count 175 Sodium 128 L Potassium 4.4 Chloride 98 Carbon Dioxide 22 L BUN 29 H Creatinine 1.75 H Glucose 186 H Calcium 8.6 Troponin I < 0.03 04/06/17 01:03 WBC Hgb Hct Plt Count Sodium Potassium Chloride Carbon Dioxide BUN Creatinine Glucose Calcium Troponin I < 0.03 Active Medications Acetaminophen (Tylenol) 650 mg PO Q6HR PRN PRN Reason: Mild Pain (1-3) Stop: 10/04/17 07:38 Last Admin: 04/06/17 13:59 Dose: 650 mg Albuterol/Ipratropium (Duoneb) 3 ml IH [id number] PRN PRN Reason: Shortness Of Breath/Wheezing Stop: 10/05/17 12:01 Last Admin: 04/05/17 18:29 Dose: 3 ml Amlodipine Besylate (Norvasc) 5 mg PO DAILY DEBORAH PRN Reason: Protocol Stop: 10/04/17 09:01 Last Admin: 04/06/17 08:17 Dose: 5 mg Benzonatate (Tessalon) 200 mg PO BID PRN PRN Reason: Cough Bisacodyl (Dulcolax) 10 mg RC DAILY PRN PRN Reason: Constipation Stop: 10/06/17 11:48 Last Admin: 04/06/17 12:11 Dose: 10 mg Clopidogrel Bisulfate (Plavix) 75 mg PO DAILY [facility] Stop: 10/04/17 09:01 Last Admin: 04/06/17 08:17 Dose: 75 mg Dextrose/Water (Dextrose 50% (Syg)) 25 ml IVP AD PRN PRN Reason: Hypoglycemia Stop: 10/04/17 07:59 Ferrous Sulfate (Ferrous Sulfate) 325 mg PO DAILY@0800 DEBORAH Stop: 10/04/17 08:06 Last Admin: 04/06/17 08:16 Dose: 325 mg Glucagon (Glucagen) 1 mg IM ONCE PRN PRN Reason: Hypoglycemia Stop: 10/04/17 07:59 Glucose (Gluctose) 15 gm PO ONCE PRN PRN Reason: Hypoglycemia Stop: 10/04/17 07:59 Glucose (Gluctose) 30 gm PO ONCE PRN PRN Reason: Hypoglycemia Stop: 10/04/17 07:59 Guaifenesin (Mucinex) 600 mg PO Q12H PRN PRN Reason: Congestion Stop: 10/04/17 07:51 Heparin Sodium (Porcine) (Heparin) 5,000 unit SQ Q12HR DEBORAH Stop: 10/04/17 18:01 Last Admin: 04/06/17 06:57 Dose: 5,000 unit Dextrose (Dextrose 5%) 1,000 mls @ 100 mls/hr IVC .Q10H PRN PRN Reason: HYPOGLYCEMIA Stop: 10/04/17 07:59 Insulin Detemir (Levemir) 20 unit SQ HS DEBORAH Stop: 10/05/17 21:01 Last Admin: 04/05/17 22:33 Dose: 20 unit Insulin Human Lispro (Humalog) 0 units SQ HS DEBORAH PRN Reason: Protocol Stop: 10/04/17 21:01 Last Admin: 04/05/17 22:51 Dose: 4 units Insulin Human Lispro (Humalog) 0 units SQ TIDAC DEBORAH PRN Reason: Protocol Stop: 10/04/17 11:31 Last Admin: 04/06/17 11:57 Dose: 10 units Insulin Human Lispro (Humalog) 5 units SQ TIDWM DEBORAH Stop: 10/04/17 12:01 Last Admin: 04/06/17 12:21 Dose: 5 units Lactobacillus Acidophilus/Rhamnosus (Culturelle) 1 each PO DAILY DEBORAH Stop: 10/04/17 09:01 Last Admin: 04/06/17 08:17 Dose: 1 each Lorazepam (Ativan) 0.5 mg IVP Q4HR PRN PRN Reason: Anxiety Stop: 10/05/17 19:00 Last Admin: 04/05/17 19:31 Dose: 0.5 mg Magnesium Hydroxide (Milk Of Magnesia Conc) 10 ml PO DAILY DEBORAH Stop: 10/05/17 15:01 Last Admin: 04/06/17 08:18 Dose: 10 ml Metoprolol Succinate (Toprol Xl) 25 mg PO DAILY [facility] Stop: 10/04/17 09:01 Last Admin: 04/06/17 08:17 Dose: 25 mg Multivitamins/Calcium (Thera M Plus) 1 tab PO DAILY DEBORAH PRN Reason: Protocol Stop: 10/04/17 09:01 Last Admin: 04/06/17 08:17 Dose: 1 tab Naloxone HCl (Narcan) 0.4 mg IVP Q2MIN PRN PRN Reason: Opioid Reversal Stop: 10/04/17 07:38 Ondansetron HCl (Zofran Odt) 4 mg SL Q8HR PRN PRN Reason: Nausea And Vomiting Stop: 10/04/17 07:38 Oxycodone/Acetaminophen (Percocet 5/325) 1 each PO Q6HR PRN PRN Reason: Moderate to Severe Pain (4-10) Stop: 10/05/17 09:55 Last Admin: 04/05/17 10:27 Dose: 1 each Prednisone (Prednisone) 5 mg PO BIDWM [facility] Stop: 10/04/17 08:01 Last Admin: 04/06/17 08:17 Dose: 5 mg Promethazine HCl (Phenergan) 25 mg PO Q6HR PRN PRN Reason: Nausea Stop: 10/04/17 07:51 Senna/Docusate Sodium (Senna Plus) 2 each PO BID DEBORAH PRN Reason: Protocol Stop: 10/05/17 10:46 Last Admin: 04/06/17 08:16 Dose: 2 each ITS Impressions Chest X-Ray 04/04/17 07:40 IMPRESSION: Minimal bibasilar atelectasis. D/ / 04/04/2017 08:20:08 Harish Campos MD / [facility] Interpreting Provider: Harish Campos MD Clavicle X-Ray 04/04/17 15:41 IMPRESSION: No acute displaced fracture. D/ / Kolby Carlson MD / Kolby Carlson MD Interpreting Provider: Kolby Carlson MD Gallbladder Ultrasound 04/05/17 00:00 IMPRESSION: Gallbladder is contracted and poorly evaluated. No biliary dilatation. No pericholecystic fluid. Liver appears heterogeneous with slight nodular contour. No discrete lesion visualized. Findings can be seen in cirrhosis. D/ / Shea Mitchell MD / Shea Mitchell MD Interpreting Provider: Shea Mitchell MD Pulmonary Perfusion Imaging 04/06/17 11:46 IMPRESSION: Very low probability for pulmonary embolism. D/ / Liam Schneider MD / Liam Schneider MD Interpreting Provider: Liam Schneider MD - Imaging and Cardiology Echo: report reviewed Cardiac cath: report reviewed Other Results: 12 hour tele: avg KC=[id number] ST. - EKG Interpretation EKG results cardiology: personally reviewed Consult Discharge Plan - Plan Referrals: Rozina Villeda MD [Primary Care Provider] - 04/12/17 10:30 am <Louis Maddox - Last Filed: 04/07/17 11:12> Date of Encounter: 04/07/17 - Attending Attestation I have personally performed a face to face evaluation on this patient. I have reviewed and agree with the care plan. History and Exam by me shows: IMP; 1.. Shorntness of breath: persistant, worsening cough, sputum production, low grade temps, symptoms most consistent with upper respiratory tract infection, do not appear to be cardiac related. 2. SVT; resolved post SVT ablation at [facility], maintaining NSR, old records from [facility] requested, will order echo to eval LV function, assess new wall motion abnormalites, rule out pericardial effusion post catheter based ablation 3. CAD: severe triple vessel disease, post CABG, bypass grafts patent at [facility] 2016, troponin negative x 5 4. Metastatic Prostate cancer: primary service managing Assessment and Plan Discussion w patient/family: The assessment and plan as outlined above was discussed with the patient and/or family members who expressed understanding and agreement. All questions were answered. Thank you for involving us in the care of your patient. Please call with any questions. History of Present Illness History of present illness: Mr. Parsons is a 81 year old male All Systems Review: A 10-system review of systems was performed and is negative for pertinent findings except as documented above in the HPI. Results 04/07/17 04:10 04/07/17 04:10 Lab Results 04/07/17 04/07/17 04:10 04:10 WBC 9.7 Hgb 8.7 L Hct 26.4 L Plt Count 169 Sodium 125 L Potassium 4.5 Chloride 94 L Carbon Dioxide 23 BUN 29 H Creatinine 1.77 H Glucose 114 H Calcium 8.9
--- NOTE | 2017-04-06 19:13 | Electrocardiograph Report ---
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
[2017-04-06] MEDS: Insulin DETEMIR 100 UNIT/ML X5UNITS SQ SCH (20:42)
[2017-04-06] MEDS: Ipratropium/Albuterol Neb 3 ML IH PRN (20:52)
[2017-04-07 05:15] LABS: Hematocrit 26.4 % (37.5-50.1); Hemoglobin 8.7 g/dL (12.9-16.9); Immature Granulocytes % 0.4 % (0-4); Lymphocytes # 0.4 K/mcL (0.6-4.6); Lymphocytes % 4.3 %; Mean Corpuscular Hemoglobin 27.1 pg (28.0-33.3); Mean Corpuscular Volume 82.2 fL (83.0-100.0); Mean Platelet Volume 10.5 fL (9.4-12.4); Monocytes # 1.1 K/mcL (0.0-1.3); Neutrophils # 8.2 K/mcL (1.6-8.9); Platelet Count 169 K/mcL (140-400); Red Blood Count 3.21 M/mcL (4.19-5.50); Red Cell Distribution Width 14.7 % (11.5-14.5); Segmented Neutrophils % 84.3 %
[2017-04-07 05:33] LABS: Calcium 8.9 mg/dL (8.6-10.3); Potassium 4.5 mEq/L (3.5-5.1)
[2017-04-07] MEDS: *HR* Heparin 5,000 UNIT/ML VIAL SQ SCH ×2 (05:42→17:15)
[2017-04-07] MEDS: predniSONE 5 MG TABLET PO SCH ×2 (07:51→17:15)
[2017-04-07] MEDS: Multivit/Ca/Min/Fe/FA 1 TAB TABLET PO SCH (07:51)
[2017-04-07] MEDS: *HR* OxyCODONE/APAP 5/325 TABLET PO PRN (07:51)
[2017-04-07] MEDS: Metoprolol XL (24 HR) Succ 25 MG TAB.ER.24H PO SCH (07:51)
[2017-04-07] MEDS: Lactobacillus 1 EACH CAP.SPRINK PO SCH (07:51)
[2017-04-07] MEDS: MOM Conc 10 ML UD.LIQ PO SCH (07:51)
[2017-04-07] MEDS: Sennosides/Docusate Sodium TABLET PO SCH ×2 (07:51→21:10)
[2017-04-07] MEDS: amLODIPine 5 MG TABLET PO SCH (07:51)
[2017-04-07] MEDS: Insulin LISPRO 300 UNITS/3 ML VIAL SQ SCH ×7 (07:52→21:15)
[2017-04-07] MEDS ORDERED: *HR* Metoprolol 5 MG/5 ML VIAL IVP ONE (07:52)
[2017-04-07] MEDS: Metoprolol XL (24 HR) Succ 50 MG TAB.ER.24H PO SCH (09:26)
[2017-04-07] MEDS: *HR* LORazepam 2 MG/ML VIAL IVP PRN (10:49)
--- NOTE | 2017-04-07 12:21 | Internal Med Progress Note ---
Date of Encounter: 04/07/17 Time of Encounter: 11:05 - Assessment and plan (1) SIRS (systemic inflammatory response syndrome) Current Visit: Yes Status: Acute Assessment and plan: Patient continues to be tachycardic with heart rate in 110s to 120s. Afebrile since 04/06 0016 Its possible patient has a viral syndrome, since his leukocytosis has resolved without antibiotics, no source of sepsis as work up including urine, blood culture, chest and abdomen imaging, gall bladder imaging, DVT and pulmonary embolism has been ruled out. Continue supportive care Leukocytosis has resolved Follow final cultures HR improved with increasing patient's BB (2) Constipation Current Visit: Yes Status: Acute Assessment and plan: No BMs x5-6 days. Patient is requesting enema. Enema today as medications are not helping Abdomen is not acute Qualifiers: Constipation type: slow transit constipation Qualified Code(s): K59.01 - Slow transit constipation (3) Anemia Current Visit: No Status: Chronic Assessment and plan: Secondary to chronic disease/CKD/Cancer/Poor nutrition Hb is stable, continue to monitor Qualifiers: Anemia type: due to chronic kidney disease Chronic kidney disease stage: stage 3 (moderate) Qualified Code(s): N18.3 - Chronic kidney disease, stage 3 (moderate); D63.1 - Anemia in chronic kidney disease; D63.1 - Anemia in chronic kidney disease (4) SVT (supraventricular tachycardia) Current Visit: Yes Status: Chronic Assessment and plan: Chronic, HR uncontrolled Per patient hx of afib s/p ablation, xarelto held in the past due to epistaxis. Continue ASA only Increase metoprolol ECHO has been done and pending a read by cardiology Continue to monitor (5) CAD (coronary artery disease) Current Visit: Yes Status: Chronic Assessment and plan: hx of PCIx8 denies chest pain sinus tachycardia on EKG tro negative x3 echo 03/12/2017 EF 60% with no wall motion abnormalaties, repeat ECHO pending family requests cardiology consult because they state everytime he has symptoms of shortness of breath, tachycardia, "he ends up with a stent". cardiology consult noted-no intervention at this time Qualifiers: Coronary Disease-Associated Artery/Lesion type: [place] artery [place] vs. transplanted heart: [place] heart Associated angina: with unstable angina Qualified Code(s): I25.110 - Atherosclerotic heart disease of [place] coronary artery with unstable angina pectoris (6) CKD stage 3 due to type 2 diabetes mellitus Current Visit: Yes Status: Chronic Assessment and plan: Patient has chronic kidney disease stage 3 Trending towards baseline Avoid nephrotoxins Continue to monitor. (7) Failure to thrive Current Visit: Yes Status: Chronic Assessment and plan: Multiple admissions to [facility] for FTT. Main complaints of SOB and weakness. Family expressed desire to improve patient conditioning so he could receive treatment for prostate cancer. Physical therapy and occupational therapy evaluation prior to discharge. Qualifiers: Failure to thrive age range: in adult Qualified Code(s): R62.7 - Adult failure to thrive (8) Chronic diastolic (congestive) heart failure Current Visit: Yes Status: Chronic Assessment and plan: Continue current medications. Follow current echo. (9) Hyponatremia Current Visit: Yes Status: Chronic Assessment and plan: chronic hyponatremia stable alert and oriented x3 will continue to monitor (10) Abdominal pain Current Visit: Yes Status: Acute Assessment and plan: Suspect constipation as cause Patient has not had a bowel movement in the last 5 days. This is complicated by being on narcotic pain medication. Ultrasound gallbladder negative. CT abdomen/pelvis without contrast negative. enema today. Qualifiers: Abdominal location: left lower quadrant Qualified Code(s): R10.32 - Left lower quadrant pain (11) Lactic acidosis Current Visit: Yes Status: Resolved Assessment and plan: Resolved. Etiology unknown. (12) Prostate cancer metastatic to multiple sites Current Visit: Yes Status: Chronic Assessment and plan: History of prostate cancer metastasis to bone and liver. Patient is considered palliative according to oncology notes. Currently he is not on any radiation or chemotherapy treatment. Follow-up outpatient with oncology. - Subjective Interval history: 81-year-old male with metastatic prostate cancer, atrial flutter and fibrillation status post ablation, not on anticoagulation due to history of epistaxis, hypertension , chronic hyponatremia, and diabetes mellitus. The patient was transferred from an outside facility for evaluation for sepsis. As at this time, there is no source of infection found. Paper chart from outside facility reviewed. Workup at her facility shows leukocytosis, lactic acidosis, abdomen and pelvis CT scan without contrast was essentially normal. Work up here including Venous doppler, VQ scan, CXR, Gall bladder USS, blood culture, Flu swab all negative It is possible the patient has a viral syndrome He has been afebrile since 04/06 00.16 Leukocytosis has resolved He was seen and examined at the bedside this morning. He has no new complaints. His heart rate has been uncontrolled for the past 24 hours. He has not had a BM, we will give him an enema Cardiology was consulted yesterday April 06 due to abdominal pain, patient shortness of breath and uncontrolled SVT's, hx of CAD s/p 8 stents Echocardiogram is pending. I have increased the dose of his b-jesus - Constitutional Vitals: Temp Pulse Resp BP Pulse Ox 98.0 F 57 17 105/65 96 04/07/17 11:49 04/07/17 11:49 04/07/17 11:49 04/07/17 11:49 04/07/17 11:49 General appearance: Present: cooperative, A&O X 3, pleasant, no acute distress, answers questions appropriately - Head Head exam: Present: atraumatic, normocephalic - Eye Eye exam: Present: PERRL, conjuntiva pink, sclera anicteric Pupils: Present: PERRL - Neck Neck exam general surgery: Present: supple, trachea midline. Absent: lymphadenopathy - Respiratory Respiratory exam: Present: CTAB. Absent: accessory muscle use, rales, rhonchi, wheezes - Cardiovascular Cardiovascular exam: Present: RRR, +S1, +S2, tachycardia. Absent: diastolic murmur, gallop, rubs, systolic murmur - GI/Abdominal GI/Abdominal exam: Present: normal bowel sounds, soft, no peritoneal signs. Absent: distended, tenderness - Extremities Exam Extremities exam: Present: pedal edema (trace bilateral pedal edema) - Neurological Exam Neurological exam: Present: alert, CN II-XII intact, oriented X3, no focal deficits. Absent: pronater drift, facial droop, speech deficit - Skin Skin exam: Present: dry, intact Internal Medicine: Result - Labs CBC & Chem 7: 04/07/17 04:10 04/07/17 04:10 Labs: Short CBC 04/07/17 Range/Units 04:10 WBC 9.7 (4.3-11.1) K/mcL Hgb 8.7 L (12.9-16.9) g/dL Hct 26.4 L (37.5-50.1) % Plt Count 169 (140-400) K/mcL Neutrophils # 8.2 (1.6-8.9) K/mcL BMP 04/07/17 04:10 Sodium 125 L Potassium 4.5 Chloride 94 L Carbon Dioxide 23 BUN 29 H Creatinine 1.77 H Glucose 114 H Calcium 8.9 - ABG Interpretation ABG results: PT/INR, D-dimer PT 13.0 Seconds (9.4-12.1) H 04/04/17 08:53 - Impressions Impressions Pulmonary Perfusion Imaging 04/06/17 11:46 IMPRESSION: Very low probability for pulmonary embolism. D/ / Liam Schneider MD / Liam Schneider MD Interpreting Provider: Liam Schneider MD Consult Discharge Plan - Plan Referrals: Rozina Villeda MD [Primary Care Provider] - 04/12/17 10:30 am
[2017-04-07] MEDS ORDERED: Milk and Molasses Enema 200 ML RC ONE (13:13)
[2017-04-07] MEDS: Insulin DETEMIR 100 UNIT/ML X5UNITS SQ SCH (21:15)
[2017-04-08 07:09] LABS: Basophils % 0.1 %; Hematocrit 24.7 % (37.5-50.1); Immature Granulocytes % 0.7 % (0-4); Lymphocytes # 0.7 K/mcL (0.6-4.6); Lymphocytes % 6.3 %; Mean Corpuscular HGB Conc 32.4 g/dL (31.6-35.5); Mean Corpuscular Hemoglobin 26.8 pg (28.0-33.3); Mean Corpuscular Volume 82.9 fL (83.0-100.0); Mean Platelet Volume 10.3 fL (9.4-12.4); Monocytes % 9.6 %; Platelet Count 184 K/mcL (140-400); Red Blood Count 2.98 M/mcL (4.19-5.50); Red Cell Distribution Width 15.2 % (11.5-14.5); Segmented Neutrophils % 83.3 %
[2017-04-08 07:35] LABS: Calcium 8.7 mg/dL (8.6-10.3); Magnesium 2.4 mg/dL (1.6-2.6); Potassium 4.3 mEq/L (3.5-5.1)
--- NOTE | 2017-04-08 08:19 | Cardiology Progress Note ---
Date of Encounter: 04/08/17 Time of Encounter: 07:30 Assessment and Plan (1) SOB (shortness of breath) Current Visit: Yes Status: Acute Symptoms are likely multifactorial ,do not suspect are cardiac in etiology. Multiple recent admissions ([facility], [facility], [facility]), treated for PNA. Tachycardia likely to improve once underlying illness treated. Continues to be febrile, T max 100.3 overnight. V/Q scan: low probability for PE. Repeat TTE shows preserved LVEF 60% with mild LVDD, normal wall motion, no effusion. No further testing from Cardiology standpoint, will sign-off. (2) CAD (coronary artery disease) Current Visit: Yes Status: Chronic Hx of CAD s/p PCI (reports x8 stents). Most recent LHC 02/2016 which demonstrated patent stents (proximal-mid RCA, mLAD , and pLCx); otherwise moderate non-obstructive CAD. No ischemic ECG changes noted. Denies chest pain. Troponin negative x5. Presented with FLORINDA on CKD. SCr worsened today. H/H continues to downtrend, now 8.0. Patient does report "black" stools-- consider GI work-up, will defer to primary service. TTE 03/12/17 demonstrated preserved LVEF, 60%. TTE 04/06/17: EF 60%, no effusion, normal wall motion. Can consider ischemic evaluation with persistent symptoms in the outpatient setting, stress vs. LHC. Qualifiers: Coronary Disease-Associated Artery/Lesion type: [place] artery [place] vs. transplanted heart: [place] heart Associated angina: with unstable angina Qualified Code(s): I25.110 - Atherosclerotic heart disease of [place] coronary artery with unstable angina pectoris (3) SVT (supraventricular tachycardia) Current Visit: Yes Status: Chronic No SVT noted per telemetry review. Recent SVT ablation at [facility] on 03/19/17. Recommend follow-up as outpatient with [facility] EP. (4) Abdominal pain Current Visit: Yes Status: Acute Patient CC is LLQ abdominal pain, reportedly due to constipation. Defer further mgmt to primary service. Qualifiers: Abdominal location: left lower quadrant Qualified Code(s): R10.32 - Left lower quadrant pain (5) Malignant neoplasm of prostate metastatic to liver Current Visit: Yes Status: Acute Discussion w patient/family: The assessment and plan as outlined above was discussed with the patient and/or family members who expressed understanding and agreement. All questions were answered. Thank you for involving us in the care of your patient. Please call with any questions. The patient will be discussed and reviewed with Dr. Maddox, changes to be made accordingly. Subjective Principal diagnosis: Sepsis, shortness of breath Interval history: Seen and examined. Reports dyspnea is near baseline. Abdominal pain is improved. Discussed results of echo with patient. No reported events overnight. Continues to be febrile. Objective General: Conversant HEENT: Atraumatic, Normocephaly Cardiac: Reg Rate and Rhythm (tachycardiac), Normal S1 and S2 Lungs: Normal Breath Sounds Neuro: Alert and responsive Abdomen: Soft Skin: No rashes noted on visualized skin Musculoskeletal: No Chest Wall Tenderness Extremities: No Edema, Normal Pulses Results 04/08/17 06:10 04/08/17 06:10 Lab Results 04/08/17 04/08/17 06:10 06:10 WBC 10.8 Hgb 8.0 L Hct 24.7 L Plt Count 184 Sodium 127 L Potassium 4.3 Chloride 96 L Carbon Dioxide 23 BUN 42 H Creatinine 1.86 H Glucose 186 H Calcium 8.7 Magnesium 2.4 Active Medications Acetaminophen (Tylenol) 650 mg PO Q6HR PRN PRN Reason: Mild Pain (1-3) Stop: 10/04/17 07:38 Last Admin: 04/06/17 13:59 Dose: 650 mg Albuterol/Ipratropium (Duoneb) 3 ml IH [id number] PRN PRN Reason: Shortness Of Breath/Wheezing Stop: 10/05/17 12:01 Last Admin: 04/06/17 20:52 Dose: 3 ml Amlodipine Besylate (Norvasc) 5 mg PO DAILY DEBORAH PRN Reason: Protocol Stop: 10/04/17 09:01 Last Admin: 04/07/17 07:51 Dose: 5 mg Benzonatate (Tessalon) 200 mg PO BID PRN PRN Reason: Cough Bisacodyl (Dulcolax) 10 mg RC DAILY PRN PRN Reason: Constipation Stop: 10/06/17 11:48 Last Admin: 04/06/17 12:11 Dose: 10 mg Clopidogrel Bisulfate (Plavix) 75 mg PO DAILY DEBORAH Stop: 10/04/17 09:01 Last Admin: 04/07/17 07:51 Dose: 75 mg Dextrose/Water (Dextrose 50% (Syg)) 25 ml IVP AD PRN PRN Reason: Hypoglycemia Stop: 10/04/17 07:59 Ferrous Sulfate (Ferrous Sulfate) 325 mg PO DAILY@0800 DEBORAH Stop: 10/04/17 08:06 Last Admin: 04/07/17 07:51 Dose: 325 mg Guaifenesin (Mucinex) 600 mg PO Q12H PRN PRN Reason: Congestion Stop: 10/04/17 07:51 Heparin Sodium (Porcine) (Heparin) 5,000 unit SQ Q12HR DEBORAH Stop: 10/04/17 18:01 Last Admin: 04/07/17 17:15 Dose: 5,000 unit Dextrose (Dextrose 5%) 1,000 mls @ 100 mls/hr IVC .Q10H PRN PRN Reason: HYPOGLYCEMIA Stop: 10/04/17 07:59 Insulin Detemir (Levemir) 20 unit SQ HS DEBORAH Stop: 10/05/17 21:01 Last Admin: 04/07/17 21:15 Dose: 20 unit Insulin Human Lispro (Humalog) 0 units SQ HS DEBORAH PRN Reason: Protocol Stop: 10/04/17 21:01 Last Admin: 04/07/17 21:15 Dose: 4 units Insulin Human Lispro (Humalog) 0 units SQ TIDAC DEBORAH PRN Reason: Protocol Stop: 10/04/17 11:31 Last Admin: 04/07/17 17:14 Dose: 8 units Insulin Human Lispro (Humalog) 5 units SQ TIDWM DEBORAH Stop: 10/04/17 12:01 Last Admin: 04/07/17 17:15 Dose: 5 units Lactobacillus Acidophilus/Rhamnosus (Culturelle) 1 each PO DAILY DEBORAH Stop: 10/04/17 09:01 Last Admin: 04/07/17 07:51 Dose: 1 each Lorazepam (Ativan) 0.5 mg IVP Q4HR PRN PRN Reason: Anxiety Stop: 10/05/17 19:00 Last Admin: 04/07/17 10:49 Dose: 0.5 mg Magnesium Hydroxide (Milk Of Magnesia Conc) 10 ml PO DAILY [facility] Stop: 10/05/17 15:01 Last Admin: 04/07/17 07:51 Dose: 10 ml Metoprolol Succinate (Toprol Xl) 50 mg PO DAILY [facility] Stop: 10/07/17 09:01 Last Admin: 04/07/17 09:26 Dose: 25 mg Multivitamins/Calcium (Thera M Plus) 1 tab PO DAILY DEBORAH PRN Reason: Protocol Stop: 10/04/17 09:01 Last Admin: 04/07/17 07:51 Dose: 1 tab Naloxone HCl (Narcan) 0.4 mg IVP Q2MIN PRN PRN Reason: Opioid Reversal Stop: 10/04/17 07:38 Ondansetron HCl (Zofran Odt) 4 mg SL Q8HR PRN PRN Reason: Nausea And Vomiting Stop: 10/04/17 07:38 Oxycodone/Acetaminophen (Percocet 5/325) 1 each PO Q6HR PRN PRN Reason: Moderate to Severe Pain (4-10) Stop: 10/05/17 09:55 Last Admin: 04/07/17 07:51 Dose: 1 each Prednisone (Prednisone) 5 mg PO BIDWM DEBORAH Stop: 10/04/17 08:01 Last Admin: 04/07/17 17:15 Dose: 5 mg Promethazine HCl (Phenergan) 25 mg PO Q6HR PRN PRN Reason: Nausea Stop: 10/04/17 07:51 Senna/Docusate Sodium (Senna Plus) 2 each PO BID DEBORAH PRN Reason: Protocol Stop: 10/05/17 10:46 Last Admin: 04/07/17 21:10 Dose: 2 each - Imaging and Cardiology Echo: report reviewed Cardiac cath: report reviewed Other Results: 12 hour tele: avg ED=676 ST. - EKG Interpretation EKG results cardiology: personally reviewed Consult Discharge Plan - Plan Referrals: Rozina Villeda MD [Primary Care Provider] - 04/12/17 10:30 am
[2017-04-08] MEDS: predniSONE 5 MG TABLET PO SCH ×2 (10:22→17:12)
[2017-04-08] MEDS: Sennosides/Docusate Sodium TABLET PO SCH ×2 (10:22→18:47)
[2017-04-08] MEDS: Lactobacillus 1 EACH CAP.SPRINK PO SCH (10:22)
[2017-04-08] MEDS: amLODIPine 5 MG TABLET PO SCH (10:22)
[2017-04-08] MEDS: MOM Conc 10 ML UD.LIQ PO SCH (10:22)
[2017-04-08] MEDS: Multivit/Ca/Min/Fe/FA 1 TAB TABLET PO SCH (10:22)
[2017-04-08] MEDS: Insulin LISPRO 300 UNITS/3 ML VIAL SQ SCH ×7 (10:23→18:48)
[2017-04-08] MEDS: Metoprolol XL (24 HR) Succ 50 MG TAB.ER.24H PO SCH (10:23)
[2017-04-08] MEDS: *HR* Heparin 5,000 UNIT/ML VIAL SQ SCH ×2 (10:23→17:14)
--- NOTE | 2017-04-08 11:43 | Internal Med Progress Note ---
Date of Encounter: 04/08/17 Time of Encounter: 10:00 - Assessment and plan (1) SIRS (systemic inflammatory response syndrome) Current Visit: Yes Status: Acute Assessment and plan: Patient continues to be tachycardic with heart rate in 110s to 120s. Afebrile since 04/06 0016 Its possible patient has a viral syndrome, since his leukocytosis has resolved without antibiotics, no source of sepsis as work up including urine, blood culture, chest and abdomen imaging, gall bladder imaging, DVT and pulmonary embolism has been ruled out. Continue supportive care Check stool panel today Leukocytosis has resolved Follow final cultures HR improved with increasing patient's BB, continue same (2) Constipation Current Visit: Yes Status: Resolved Assessment and plan: NResolved, continue current regimen Qualifiers: Constipation type: slow transit constipation Qualified Code(s): K59.01 - Slow transit constipation (3) Anemia Current Visit: Yes Status: Chronic Assessment and plan: Secondary to chronic disease/CKD/Cancer/Poor nutrition Hb is stable, continue to monitor Qualifiers: Anemia type: due to chronic kidney disease Chronic kidney disease stage: stage 3 (moderate) Qualified Code(s): N18.3 - Chronic kidney disease, stage 3 (moderate); D63.1 - Anemia in chronic kidney disease; D63.1 - Anemia in chronic kidney disease (4) SVT (supraventricular tachycardia) Current Visit: Yes Status: Chronic Assessment and plan: Chronic, HR fairly Per patient hx of afib s/p ablation, xarelto held in the past due to epistaxis. Continue ASA only Continue metoprolol ECHO has been done and unremarkable Continue to monitor (5) CAD (coronary artery disease) Current Visit: Yes Status: Chronic Assessment and plan: hx of PCIx8 denies chest pain sinus tachycardia on EKG tro negative x3 echo 03/12/2017 EF 60% with no wall motion abnormalaties, repeat ECHO pending family requests cardiology consult because they state everytime he has symptoms of shortness of breath, tachycardia, "he ends up with a stent". cardiology consult noted-no intervention at this time Qualifiers: Coronary Disease-Associated Artery/Lesion type: [place] artery [place] vs. transplanted heart: [place] heart Associated angina: with unstable angina Qualified Code(s): I25.110 - Atherosclerotic heart disease of [place] coronary artery with unstable angina pectoris (6) CKD stage 3 due to type 2 diabetes mellitus Current Visit: Yes Status: Chronic Assessment and plan: Chem is stable Avoid nephrotoxins Continue to monitor. (7) Failure to thrive Current Visit: Yes Status: Chronic Assessment and plan: Multiple admissions to [facility] for FTT. Main complaints of SOB and weakness. Family expressed desire to improve patient conditioning so he could receive treatment for prostate cancer. Physical therapy and occupational therapy evaluation noted-For SNF/ECF placement Qualifiers: Failure to thrive age range: in adult Qualified Code(s): R62.7 - Adult failure to thrive (8) Chronic diastolic (congestive) heart failure Current Visit: Yes Status: Chronic Assessment and plan: Continue current medications. D/C Norvasc per family request (9) Hyponatremia Current Visit: Yes Status: Chronic Assessment and plan: chronic hyponatremia stable alert and oriented x3 will continue to monitor (10) Abdominal pain Current Visit: Yes Status: Resolved Assessment and plan: Suspect constipation as cause Ultrasound gallbladder negative. CT abdomen/pelvis without contrast negative. Resolved per patient Qualifiers: Abdominal location: left lower quadrant Qualified Code(s): R10.32 - Left lower quadrant pain (11) Lactic acidosis Current Visit: Yes Status: Resolved Assessment and plan: Resolved. Etiology unknown. (12) Prostate cancer metastatic to multiple sites Current Visit: Yes Status: Chronic Assessment and plan: History of prostate cancer metastasis to bone and liver. Patient is considered palliative according to oncology notes. Currently he is not on any radiation or chemotherapy treatment. Follow-up outpatient with oncology. - Subjective Interval history: 81-year-old male with metastatic prostate cancer, atrial flutter and fibrillation status post ablation, not on anticoagulation due to history of epistaxis, hypertension , chronic hyponatremia, and diabetes mellitus. The patient was transferred from an outside facility for evaluation for sepsis. As at this time, there is no source of infection found. Paper chart from outside facility reviewed. Workup at her facility shows leukocytosis, lactic acidosis, abdomen and pelvis CT scan without contrast was essentially normal. Work up here including Venous doppler, VQ scan, CXR, Gall bladder USS, blood culture, Flu swab all negative It is possible the patient has a viral syndrome He has been afebrile since 04/06 00.16, few elevated temperatures but no fever He has started having BM His abdominal pain has resolved Leukocytosis has resolved He was seen and examined at the bedside this morning. and son at the bedside He has no new complaints. - Constitutional Vitals: Temp Pulse Resp BP Pulse Ox 99.7 F H 96 23 124/58 95 04/08/17 08:15 04/08/17 08:15 04/08/17 08:15 04/08/17 08:15 04/08/17 08:15 General appearance: Present: cooperative, A&O X 3, pleasant, no acute distress, answers questions appropriately - Head Head exam: Present: atraumatic, normocephalic - Eye Eye exam: Present: PERRL, conjuntiva pink, sclera anicteric Pupils: Present: PERRL - Neck Neck exam general surgery: Present: supple, trachea midline. Absent: lymphadenopathy - Respiratory Respiratory exam: Present: CTAB. Absent: accessory muscle use, rales, rhonchi, wheezes - Cardiovascular Cardiovascular exam: Present: RRR, +S1, +S2. Absent: diastolic murmur, gallop, rubs, systolic murmur - GI/Abdominal GI/Abdominal exam: Present: normal bowel sounds, soft, no peritoneal signs. Absent: distended, tenderness - Extremities Exam Extremities exam: Present: pedal edema - Neurological Exam Neurological exam: Present: alert, CN II-XII intact, oriented X3, no focal deficits. Absent: pronater drift, facial droop, speech deficit - Skin Skin exam: Present: dry, intact Internal Medicine: Result - Labs CBC & Chem 7: 04/08/17 06:10 04/08/17 06:10 Labs: Short CBC 04/08/17 Range/Units 06:10 WBC 10.8 (4.3-11.1) K/mcL Hgb 8.0 L (12.9-16.9) g/dL Hct 24.7 L (37.5-50.1) % Plt Count 184 (140-400) K/mcL Neutrophils # 9.0 H (1.6-8.9) K/mcL BMP 04/08/17 06:10 Sodium 127 L Potassium 4.3 Chloride 96 L Carbon Dioxide 23 BUN 42 H Creatinine 1.86 H Glucose 186 H Calcium 8.7 - ABG Interpretation ABG results: PT/INR, D-dimer PT 13.0 Seconds (9.4-12.1) H 04/04/17 08:53 - Impressions Impressions Echocardiogram 04/06/17 14:46 Impressions: Technically adequate exam. Normal sinus rhythm. Mild concentric left ventricular hypertrophy. Mild left ventricular diastolic dysfunction. LVEF 60%. Trace aortic regurgitation. Trace mitral regurgitation. Mild tricuspid regurgitation. Left Ventricular Wall Motion: Rest Echo Findings All wall segments showed normal motion. Findings: Study Quality * Technically adequate exam. ECG Findings * Normal sinus rhythm. Left Ventricle * Mild concentric left ventricular hypertrophy. * Mild left ventricular diastolic dysfunction. * LVEF 60%. Right Ventricle * Normal right ventricular structure and function. Left Atrium * Mildly dilated left atrium. Right Atrium * Normal right atrial size. Aortic Valve * Trileaflet aortic valve. * Trace aortic regurgitation. Interatrial Septum * No evidence of PFO by color Doppler. Mitral Valve * Normal mitral valve structure and function. * Trace mitral regurgitation. Tricuspid Valve * Normal tricuspid valve structure and function. * Mild tricuspid regurgitation. Pulmonic Valve * Pulmonic valve is not well visualized. Aorta * Normally sized aortic root. Pericardium * The pericardium appears normal. Consult Discharge Plan - Plan Referrals: Rozina Villeda MD [Primary Care Provider] - 04/12/17 10:30 am
[2017-04-08] MEDS: Ipratropium/Albuterol Neb 3 ML IH PRN (16:42)
[2017-04-08 17:05] LABS: Adenovirus F 40/41 PCR Not detected (Not detect); Astrovirus PCR Not detected (Not detect); C.difficile Toxin A/B by PCR Not detected (Not detect); Campylobacter by PCR Not detected (Not detect); Cryptosporidium by PCR Not detected (Not detect); Cyclospora cayetanensis PCR Not detected (Not detect); E. coli O157 by PCR Not detected (Not detect); Entamoeba histolytica PCR Not detected (Not detect); Enteroaggregative E.coli(EAEC) Not detected (Not detect); Enteropathogenic E.coli(EPEC) Not detected (Not detect); Enterotoxigenic E.coli (ETEC) Not detected (Not detect); Giardia lamblia PCR Not detected (Not detect); Norovirus GI/GII PCR Not detected (Not detect); Plesiomonas shigelloides PCR Not detected (Not detect); Rotavirus A PCR Not detected (Not detect); Salmonella PCR Not detected (Not detect); Sapovirus PCR Not detected (Not detect); Shig/EnteroinvasiveE coli EIEC Not detected (Not detect); Shigalike tox-prod E coli STEC Not detected (Not detect); Vibrio PCR Not detected (Not detect); Vibrio cholerae PCR Not detected (Not detect); Yersinia enterocolitica PCR Not detected (Not detect)
[2017-04-08] MEDS: Insulin DETEMIR 100 UNIT/ML X5UNITS SQ SCH (18:47)
[2017-04-09] MEDS: *HR* Heparin 5,000 UNIT/ML VIAL SQ SCH ×2 (06:10→17:15)
[2017-04-09] MEDS: Metoprolol XL (24 HR) Succ 50 MG TAB.ER.24H PO SCH (07:55)
[2017-04-09] MEDS: Sennosides/Docusate Sodium TABLET PO SCH ×2 (07:55→20:38)
[2017-04-09] MEDS: Insulin LISPRO 300 UNITS/3 ML VIAL SQ SCH ×7 (07:56→20:39)
[2017-04-09] MEDS: predniSONE 5 MG TABLET PO SCH ×2 (07:56→17:15)
[2017-04-09] MEDS: Lactobacillus 1 EACH CAP.SPRINK PO SCH (07:56)
[2017-04-09] MEDS: MOM Conc 10 ML UD.LIQ PO SCH (07:56)
[2017-04-09] MEDS: Multivit/Ca/Min/Fe/FA 1 TAB TABLET PO SCH (07:56)
[2017-04-09 08:04] LABS: Eosinophils % 0.1 %; Hematocrit 26.4 % (37.5-50.1); Hemoglobin 8.6 g/dL (12.9-16.9); Immature Granulocytes % 0.7 % (0-4); Lymphocytes % 7.5 %; Mean Corpuscular HGB Conc 32.6 g/dL (31.6-35.5); Mean Corpuscular Hemoglobin 26.7 pg (28.0-33.3); Mean Platelet Volume 10.3 fL (9.4-12.4); Monocytes # 1.2 K/mcL (0.0-1.3); Monocytes % 8.9 %; Neutrophils # 11.2 K/mcL (1.6-8.9); Platelet Count 223 K/mcL (140-400); Red Blood Count 3.22 M/mcL (4.19-5.50); Red Cell Distribution Width 15.1 % (11.5-14.5); Segmented Neutrophils % 82.8 %
[2017-04-09] MEDS: Benzonatate 100 MG CAPSULE PO PRN ×2 (08:24→20:38)
[2017-04-09 08:27] LABS: Calcium 9.1 mg/dL (8.6-10.3); Potassium 4.2 mEq/L (3.5-5.1)
--- NOTE | 2017-04-09 08:55 | Internal Med Progress Note ---
<Marky Maddox - Last Filed: 04/09/17 08:57> Date of Encounter: 04/09/17 Time of Encounter: 08:53 - Assessment and plan (1) SIRS (systemic inflammatory response syndrome) Current Visit: Yes Status: Acute Assessment and plan: Tachycardia resolved. Patient has increase in his leukocytosis. Afebrile overnight. He is not requiring oxygen supplementation. All cultures has been negative. Abdominal imaging, chest imaging are negative. PE ruled out. Respiratory panel and stool panel negative. Likely patient had viral syndrome which is now resolving. He is tolerating his diet. Physical therapy recommended placement to rehabilitation. Awaiting ECF placement. (2) Lactic acidosis Current Visit: Yes Status: Resolved Assessment and plan: Resolved. Etiology unknown. (3) Abdominal pain Current Visit: Yes Status: Resolved Assessment and plan: Suspect constipation as cause Ultrasound gallbladder negative. CT abdomen/pelvis without contrast negative. Resolved per patient plan for constipation: milk of mag daily with prn dulcolax suppository. Qualifiers: Abdominal location: left lower quadrant Qualified Code(s): R10.32 - Left lower quadrant pain (4) Prostate cancer metastatic to multiple sites Current Visit: Yes Status: Chronic Assessment and plan: History of prostate cancer metastasis to bone and liver. Patient is considered palliative according to oncology notes. Currently he is not on any radiation or chemotherapy treatment. Follow-up outpatient with oncology. Code(s): C61 - Malignant neoplasm of prostate (5) CAD (coronary artery disease) Current Visit: Yes Status: Chronic Assessment and plan: hx of PCIx8 denies chest pain sinus tachycardia on EKG tro negative x3 Repeat Echo shows no new abnormalities. family requests cardiology consult because they state everytime he has symptoms of shortness of breath, tachycardia, "he ends up with a stent". Cardiology has signed off: States patient's symptoms unlikely for cardiac origin. Qualifiers: Coronary Disease-Associated Artery/Lesion type: [place] artery [place] vs. transplanted heart: [place] heart Associated angina: with unstable angina Qualified Code(s): I25.110 - Atherosclerotic heart disease of [place] coronary artery with unstable angina pectoris (6) CKD stage 3 due to type 2 diabetes mellitus Current Visit: Yes Status: Chronic Assessment and plan: Chem is stable Avoid nephrotoxins Continue to monitor. (7) Diabetes Current Visit: Yes Status: Chronic Assessment and plan: Continue levemir and Medium dose SSI Qualifiers: Diabetes mellitus type: type 2 Diabetes mellitus complication status: with kidney complications Diabetes mellitus complication detail: with chronic kidney disease Diabetes mellitus hand buffing wheel former insulin use: with hand buffing wheel former use Chronic kidney disease stage: stage 3 (moderate) Qualified Code(s): E11.22 - Type 2 diabetes mellitus with diabetic chronic kidney disease; N18.3 - Chronic kidney disease, stage 3 (moderate); N18.3 - Chronic kidney disease, stage 3 ( moderate); Z79.4 - repair servicer (current) use of insulin; Z79.4 - repair servicer ( current) use of insulin; Z79.4 - repair servicer (current) use of insulin; Z79.4 - [facility] (current) use of insulin (8) Failure to thrive Current Visit: Yes Status: Chronic Assessment and plan: Multiple admissions to [facility] for FTT. Main complaints of SOB and weakness. Family expressed desire to improve patient conditioning so he could receive treatment for prostate cancer. Physical therapy and occupational therapy evaluation noted-For SNF/ECF placement awaiting placement. Qualifiers: Failure to thrive age range: in adult Qualified Code(s): R62.7 - Adult failure to thrive (9) Hyponatremia Current Visit: Yes Status: Chronic Assessment and plan: chronic hyponatremia stable alert and oriented x3 will continue to monitor - Subjective Interval history: Overnight patient reported cough and poor sleep. Otherwise states he is free of chest pain, shortness of breath, abdominal pain, nausea. Last bowel movement was on the 07 of April. Physical therapy has recommended placement for rehabilitation. Patient is open to this. Patient will likely be here overnight as it is a holiday. - Constitutional Vitals: Temp Pulse Resp BP Pulse Ox 97.6 F 88 17 113/67 96 04/09/17 07:20 04/09/17 07:20 04/09/17 07:20 04/09/17 07:20 04/09/17 07:20 General appearance: Present: cooperative, A&O X 3, pleasant, no acute distress, answers questions appropriately - Other Additional findings: General: Pleasant without distress Heart: Regular rate and rhythm with no murmur Lungs: Clear to auscultation bilaterally Abdomen: Soft nontender, nondistended positive bowel sounds Skin: warm and dry Extremities: Absent pedal edema, Neuro: Alert and oriented 3 Vascular: Pedal and radial pulses 2 out of 4 Internal Medicine: Result - Labs CBC & Chem 7: 04/09/17 06:53 04/09/17 06:53 Labs: Short CBC 04/09/17 Range/Units 06:53 WBC 13.5 H (4.3-11.1) K/mcL Hgb 8.6 L (12.9-16.9) g/dL Hct 26.4 L (37.5-50.1) % Plt Count 223 (140-400) K/mcL Neutrophils # 11.2 H (1.6-8.9) K/mcL BMP 04/09/17 06:53 Sodium 130 L Potassium 4.2 Chloride 96 L Carbon Dioxide 26 BUN 38 H Creatinine 1.49 H Glucose 137 H Calcium 9.1 - ABG Interpretation ABG results: PT/INR, D-dimer PT 13.0 Seconds (9.4-12.1) H 04/04/17 08:53 Consult Discharge Plan - Plan Referrals: Rozina Villeda MD [Primary Care Provider] - 04/12/17 10:30 am <Natan Freire - Last Filed: 04/09/17 13:07> Date of Encounter: 04/09/17 - Assessment and plan (1) SIRS (systemic inflammatory response syndrome) Current Visit: Yes Status: Acute (2) Constipation Current Visit: Yes Status: Resolved Qualifiers: Constipation type: slow transit constipation Qualified Code(s): K59.01 - Slow transit constipation (3) Anemia Current Visit: Yes Status: Chronic Qualifiers: Anemia type: due to chronic kidney disease Chronic kidney disease stage: stage 3 (moderate) Qualified Code(s): N18.3 - Chronic kidney disease, stage 3 (moderate); D63.1 - Anemia in chronic kidney disease; D63.1 - Anemia in chronic kidney disease (4) SVT (supraventricular tachycardia) Current Visit: Yes Status: Chronic (5) CAD (coronary artery disease) Current Visit: Yes Status: Chronic Qualifiers: Coronary Disease-Associated Artery/Lesion type: [place] artery [place] vs. transplanted heart: [place] heart Associated angina: with unstable angina Qualified Code(s): I25.110 - Atherosclerotic heart disease of [place] coronary artery with unstable angina pectoris (6) CKD stage 3 due to type 2 diabetes mellitus Current Visit: Yes Status: Chronic (7) Failure to thrive Current Visit: Yes Status: Chronic Qualifiers: Failure to thrive age range: in adult Qualified Code(s): R62.7 - Adult failure to thrive (8) Chronic diastolic (congestive) heart failure Current Visit: Yes Status: Chronic (9) Hyponatremia Current Visit: Yes Status: Chronic (10) Abdominal pain Current Visit: Yes Status: Resolved Qualifiers: Abdominal location: left lower quadrant Qualified Code(s): R10.32 - Left lower quadrant pain (11) Lactic acidosis Current Visit: Yes Status: Resolved (12) Prostate cancer metastatic to multiple sites Current Visit: Yes Status: Chronic - Constitutional Vitals: Temp Pulse Resp BP Pulse Ox 98.0 F 91 18 138/74 96 04/09/17 11:32 04/09/17 11:32 04/09/17 11:32 04/09/17 11:32 04/09/17 11:32 Internal Medicine: Result - Labs CBC & Chem 7: 04/09/17 06:53 04/09/17 06:53 Labs: Short CBC 04/09/17 Range/Units 06:53 WBC 13.5 H (4.3-11.1) K/mcL Hgb 8.6 L (12.9-16.9) g/dL Hct 26.4 L (37.5-50.1) % Plt Count 223 (140-400) K/mcL Neutrophils # 11.2 H (1.6-8.9) K/mcL BMP 04/09/17 06:53 Sodium 130 L Potassium 4.2 Chloride 96 L Carbon Dioxide 26 BUN 38 H Creatinine 1.49 H Glucose 137 H Calcium 9.1 - ABG Interpretation ABG results: PT/INR, D-dimer PT 13.0 Seconds (9.4-12.1) H 04/04/17 08:53 - Attending Attestation I have independently seen and examined this patient on 04/09/17 and reviewed plan of care with patient and residents 81 M with metastatic progressive prostate CA on palliative care, chronic fatige , SVT /Afib s/p ablation not on anticoagulation, HTN, DM Admitted for SIRS r/o sepsis, viral syndrome Complaining of cough (chronic) this morning, will add expectorant Physical exam remarkable for trace pedal edema only, chest is CTAB Labs and Imaging reviewed: New leukocytosis Plan: Continue current care and continue to monitr Per PTOT d/c dispo is to SNF/ECF. patient wants out-patient therapy at [facility] tmrw 1/2 Rest as in resident physician's documentation
[2017-04-09] MEDS: Insulin DETEMIR 100 UNIT/ML X5UNITS SQ SCH (20:39)
[2017-04-10] MEDS: *HR* Heparin 5,000 UNIT/ML VIAL SQ SCH ×2 (06:03→06:09)
[2017-04-10 06:17] LABS: Hematocrit 26.4 % (37.5-50.1); Hemoglobin 8.7 g/dL (12.9-16.9); Mean Corpuscular Hemoglobin 27.1 pg (28.0-33.3); Mean Corpuscular Volume 82.2 fL (83.0-100.0); Mean Platelet Volume 10.5 fL (9.4-12.4); Platelet Count 216 K/mcL (140-400); Red Blood Count 3.21 M/mcL (4.19-5.50); Red Cell Distribution Width 15.4 % (11.5-14.5)
[2017-04-10 06:25] LABS: BUN/Creatinine Ratio 27 (6-26); Blood Urea Nitrogen 33 mg/dL (8-23); Calcium 9.1 mg/dL (8.6-10.3); Carbon Dioxide 25 mEq/L (23-29); Chloride 98 mEq/L (98-107); Glucose 187 mg/dL (70-105); Osmolality,Calculated 284 (280-300); Potassium 4.1 mEq/L (3.5-5.1); Sodium 131 mEq/L (136-145); eGFR For African Americans > 60 (> 60); eGFR For Non-African Americans 57 (> 60)
[2017-04-10] MEDS: Multivit/Ca/Min/Fe/FA 1 TAB TABLET PO SCH (07:48)
[2017-04-10] MEDS: predniSONE 5 MG TABLET PO SCH (07:48)
[2017-04-10] MEDS: MOM Conc 10 ML UD.LIQ PO SCH (07:48)
[2017-04-10] MEDS: Lactobacillus 1 EACH CAP.SPRINK PO SCH (07:48)
[2017-04-10] MEDS: Insulin LISPRO 300 UNITS/3 ML VIAL SQ SCH ×4 (07:49→12:21)
[2017-04-10] MEDS: Metoprolol XL (24 HR) Succ 50 MG TAB.ER.24H PO SCH (07:49)
[2017-04-10] MEDS: Sennosides/Docusate Sodium TABLET PO SCH (07:53)
--- NOTE | 2017-04-10 08:19 | Discharge Summary ---
<Marky Maddox - Last Filed: 04/10/17 11:34> Date of Encounter: 04/10/17 Time of Encounter: 08:19 - Discharge Diagnosis (1) SIRS (systemic inflammatory response syndrome) Priority: Primary Status: Resolved (2) Lactic acidosis Priority: Secondary Status: Resolved (3) Abdominal pain Priority: Secondary Status: Resolved Qualifiers: Abdominal location: left lower quadrant Qualified Code(s): R10.32 - Left lower quadrant pain (4) Prostate cancer metastatic to multiple sites Priority: Secondary Status: Chronic Code(s): C61 - Malignant neoplasm of prostate (5) CAD (coronary artery disease) Priority: Secondary Status: Chronic Qualifiers: Coronary Disease-Associated Artery/Lesion type: [place] artery [place] vs. transplanted heart: [place] heart Associated angina: with unstable angina Qualified Code(s): I25.110 - Atherosclerotic heart disease of [place] coronary artery with unstable angina pectoris (6) CKD stage 3 due to type 2 diabetes mellitus Priority: Secondary Status: Chronic (7) Diabetes Priority: Secondary Status: Chronic Qualifiers: Diabetes mellitus type: type 2 Diabetes mellitus complication status: with kidney complications Diabetes mellitus complication detail: with chronic kidney disease Diabetes mellitus penitentiary insulin use: with penitentiary use Chronic kidney disease stage: stage 3 (moderate) Qualified Code(s): E11.22 - Type 2 diabetes mellitus with diabetic chronic kidney disease; N18.3 - Chronic kidney disease, stage 3 (moderate); N18.3 - Chronic kidney disease, stage 3 ( moderate); Z79.4 - senior care (current) use of insulin; Z79.4 - senior care ( current) use of insulin; Z79.4 - terminal make up operator (current) use of insulin; Z79.4 - terminal make up operator (current) use of insulin (8) Failure to thrive Priority: Secondary Status: Chronic Qualifiers: Failure to thrive age range: in adult Qualified Code(s): R62.7 - Adult failure to thrive (9) Hyponatremia Priority: Secondary Status: Chronic - Discharge Medications Prescriptions: Bisacodyl [Dulcolax] 10 mg RC DAILY PRN #30 supp.rect PRN Reason: Constipation Chair, Shower [SHOWER CHAIR] 1 each .ROUTE DAILY #1 each Metoprolol XL (24 HR) Succ [Toprol Xl] 50 mg PO DAILY #30 tab.er.24h MOM Conc [MILK OF MAGNESIA conc] 10 ml PO DAILY #30 ud.liq Home Medications: Insulin ASPART [NovoLOG] 5 unit SQ TID MDD Sliding Scale 01/18/15 [History] Insulin Glargine,Hum.rec.anlog [Toujeo Solostar] 15 unit SQ HS 03/03/16 [History ] L. Acidophilus/Bifid. Animalis [One-A-Day Trubiotics Capsule] 1 each PO DAILY [History] Lutein 20 mg PO DAILY 04/17/16 [History] Cyanocobalamin (B-12) [Vitamin B12] 1,000 mcg IM QMONTH 01/01/17 [History] [place]-3/Dha/Epa/Fish Oil [Fish Oil 1,000 mg Softgel] 1 each PO DAILY 01/09/17 [ History] Mv-Mn/FA/Lycopene/Lut/Hb#178 [Nirav Multivit For Men Caplet] 1 each PO DAILY [History] Promethazine [Phenergan] 25 mg PO Q6HR PRN #30 tablet 03/06/17 [Rx] Benzonatate [Tessalon] 200 mg PO BID PRN #30 capsule 03/29/17 [Rx] Clopidogrel [Plavix] 75 mg PO DAILY 03/29/17 [History] Guaifenesin [Mucinex] 600 mg PO Q12H PRN 03/29/17 [History] amLODIPine [Norvasc] 5 mg PO DAILY #90 tablet 03/29/17 [Rx] Ferrous Sulfate 325 mg PO DAILY 04/04/17 [History] predniSONE [PredniSONE] 5 mg PO BIDWM 04/04/17 [History] Bisacodyl [Dulcolax] 10 mg RC DAILY PRN #30 supp.rect 04/10/17 [Rx] Chair, Shower [SHOWER CHAIR] 1 each .ROUTE DAILY #1 each 04/10/17 [Rx] MOM Conc [MILK OF MAGNESIA conc] 10 ml PO DAILY #30 ud.liq 04/10/17 [Rx] Metoprolol XL (24 HR) Succ [Toprol Xl] 50 mg PO DAILY #30 tab.er.24h 04/10/17 [ Rx] Allergies/Adverse Reactions: 3 Allergy/AdvReac Type Severity Reaction Status Date / Time amlodipine AdvReac Difficulty Verified 04/08/17 11:49 Breathing diphenhydramine AdvReac Shakiness Verified 03/12/17 08:42 Date of admission: 04/04/17 08:19 Primary care physician: Rozina Aguirre Consults: 04/06/17 08:19 Consult to Physical Therapy [CONS] Routine Comment: Evaluate, develop and implement POC Reason for Consult: Safety/ Gait Eval/ Placement recommendations 04/06/17 08:38 Consult to Occupational Therapy [CONS] Routine Comment: Evaluate, develop and implement POC Reason for Consult: fall 04/06/17 11:49 Consult to Cardiology [CONS] Routine Comment: Consulting Provider: Cardiology Fani Reason for Consult: sob, hx of CAD s/p PCI x8 stents. Call Completed: Yes 04/08/17 12:27 Consult to Tar Roofer [CONS] Routine Reason for SW Consult: SNF placement Discharging clinician: Marky Maddox Anticipated date of discharge: 04/10/17 - Patient Status Disposition: Home Health Service Condition: Fair Functional capacity at discharge: independent ambulation Overall status at discharge: patient is progressing back to baseline - Discharge Instructions Instructions: Myocardial Infarction (DC), Sepsis (DC), Pneumonia (DC) Follow Up With: Rozina Villeda MD [Primary Care Provider] - 04/12/17 10:30 am - Diet and Activity Activity: increase activity as tolerated Diet: advance to your usual diet, diabetic diet, low fat, low cholesterol, low salt diet Hospital course: Mr. Parsons is a 81 year old male was [place] [facility] [place]. Patient presented with chief complaint of fall. He was found to have leukocytosis, lactic acidosis, tachycardia. Patient reports having abdominal pain for the past 1 week. He had not had a bowel movement for the past 5 days. States his abdominal pain was mainly right upper quadrant and radiated to her right shoulder and worsened with breathing. Patient with CT abdomen and pelvis done without contrast that was negative for any acute changes. Respiratory panel and stool panel negative. Patient was started on broad-spectrum antibiotics for sepsis, and blood and sputum cultures were sent which have all resulted in no growth.. Morning after admission patient antibiotics were discontinued and patient did not meet sepsis criteria as there is no source of infection. His constipation was initially treated with milk of magnesia and Dulcolax suppository. Patient's leukocytosis and lactic acidosis improved without any intervention. He had a fever on the second night of admission. Due to his tachycardia and shortness of breath and history of prostate cancer, VQ scan, lower extremity Dopplers were ordered which were negative. Family requested a cardiology consult as these symptoms have resulted in "stent" every time. Cardiology evaluated patient and ordered echocardiogram showed an EF of 60% with no wall motion abnormalities. Patient's tachycardia was addressed by increasing Toprol-XL to 50 mg daily. Thereafter his heart rate has been less than 100 and regular rhythm. For the past 48 hours patient has been afebrile, heart less than 100. He is able to tolerated solid, diabetic diet. PT/OT consult. And reported patient will benefit from physical rehabilitation however patient does not want to go to physical rehabilitation. He is okay with going with home health PT OT. Plan: Patient will go home on increased dose of Toprol XL, milk of magnesia daily and when necessary Dulcolax suppository. - Time Spent with Patient Total time spent providing and/or coordinating discharge services: - Constitutional Vitals: Temp Pulse Resp BP Pulse Ox 98.2 F 100 16 124/72 98 04/10/17 07:10 04/10/17 07:10 04/10/17 07:10 04/10/17 07:10 04/10/17 07:10 General appearance: Present: cooperative, A&O X 3, pleasant, no acute distress, answers questions appropriately - Head Head exam: Present: atraumatic, normocephalic - Eye Eye exam: Present: PERRL, conjuntiva pink, sclera anicteric - Neck Neck exam general surgery: Present: supple, trachea midline. Absent: lymphadenopathy - Respiratory Respiratory exam: Present: CTAB. Absent: accessory muscle use, rales, rhonchi, wheezes - Cardiovascular Cardiovascular exam: Present: RRR, +S1, +S2. Absent: diastolic murmur, gallop, rubs, systolic murmur - GI/Abdominal GI/Abdominal exam: Present: normal bowel sounds, soft, no peritoneal signs. Absent: distended, tenderness - Extremities Exam Extremities exam: Present: warm, radial pulses palpable and symmetrical. Absent : calf tenderness, cyanotic, pedal edema - Neurological Exam Neurological exam: Present: alert, oriented X3, no focal deficits. Absent: pronater drift, facial droop, speech deficit - Skin Skin exam: Present: dry, intact <Natan Freire T - Last Filed: 04/10/17 15:13> Date of Encounter: 04/10/17 - Discharge Diagnosis (1) SIRS (systemic inflammatory response syndrome) Status: Resolved (2) Constipation Status: Resolved Qualifiers: Constipation type: slow transit constipation Qualified Code(s): K59.01 - Slow transit constipation (3) Anemia Status: Chronic Qualifiers: Anemia type: due to chronic kidney disease Chronic kidney disease stage: stage 3 (moderate) Qualified Code(s): N18.3 - Chronic kidney disease, stage 3 (moderate); D63.1 - Anemia in chronic kidney disease; D63.1 - Anemia in chronic kidney disease (4) SVT (supraventricular tachycardia) Status: Chronic (5) CAD (coronary artery disease) Status: Chronic Qualifiers: Coronary Disease-Associated Artery/Lesion type: [place] artery [place] vs. transplanted heart: [place] heart Associated angina: with unstable angina Qualified Code(s): I25.110 - Atherosclerotic heart disease of [place] coronary artery with unstable angina pectoris (6) CKD stage 3 due to type 2 diabetes mellitus Status: Chronic (7) Failure to thrive Status: Chronic Qualifiers: Failure to thrive age range: in adult Qualified Code(s): R62.7 - Adult failure to thrive (8) Chronic diastolic (congestive) heart failure Status: Chronic (9) Hyponatremia Status: Chronic (10) Abdominal pain Status: Resolved Qualifiers: Abdominal location: left lower quadrant Qualified Code(s): R10.32 - Left lower quadrant pain (11) Lactic acidosis Status: Resolved (12) Prostate cancer metastatic to multiple sites Status: Chronic Date of admission: 04/04/17 08:19 Primary care physician: Rozina Aguirre Consults: 04/06/17 08:19 Consult to Physical Therapy [CONS] Routine Comment: Evaluate, develop and implement POC Reason for Consult: Safety/ Gait Eval/ Placement recommendations 04/06/17 08:38 Consult to Occupational Therapy [CONS] Routine Comment: Evaluate, develop and implement POC Reason for Consult: fall 04/06/17 11:49 Consult to Cardiology [CONS] Routine Comment: Consulting Provider: Cardiology Fani Reason for Consult: sob, hx of CAD s/p PCI x8 stents. Call Completed: Yes 04/08/17 12:27 Consult to Tar Roofer [CONS] Routine Reason for SW Consult: SNF placement Hospital course: Mr. Parsons is a 81 year old male - Time Spent with Patient Total time spent providing and/or coordinating discharge services: - Constitutional Vitals: Temp Pulse Resp BP Pulse Ox 98.2 F 80 16 122/68 96 04/10/17 11:31 04/10/17 11:31 04/10/17 11:31 04/10/17 11:31 04/10/17 11:31 - Attending Attestation I have independently seen and examined this patient on 04/10/17 and reviewed plan of care with patient and residents 81 M with metastatic progressive prostate CA on palliative care, chronic fatige , SVT /Afib s/p ablation not on anticoagulation, HTN, DM Admitted for SIRS r/o sepsis, viral syndrome Seen and examined at bedside with family, no new complains Physical exam remarkable for trace pedal edema only, chest is CTAB. Afebrile, HR controlled, BP WNL. Labs and Imaging reviewed: Leukocytosis Plan: Stable for discharge home with family. Home health, PTOT. Follow up with own investment broker, PCP, Oncologist. Rest as in resident physician's documentation
--- NOTE | 2017-04-10 08:35 | Physician Discharge Referral ---
Home Health/Hosp Referral Info Transfer to: Home Health Attending Provider: Tani Provider in Charge Post Discharge: PCP - Diagnosis (1) SIRS (systemic inflammatory response syndrome) Priority: Primary Status: Resolved (2) Lactic acidosis Priority: Secondary Status: Resolved (3) Abdominal pain Priority: Secondary Status: Resolved (4) Prostate cancer metastatic to multiple sites Priority: Secondary Status: Chronic (5) CAD (coronary artery disease) Priority: Secondary Status: Chronic (6) CKD stage 3 due to type 2 diabetes mellitus Priority: Secondary Status: Chronic (7) Diabetes Priority: Secondary Status: Chronic (8) Failure to thrive Priority: Secondary Status: Chronic (9) Hyponatremia Priority: Secondary Status: Chronic - Respiratory Orders None Smoking Cessation: Smoking cessation has been advised. For more information, call the [facility] Tobacco Quit Line at 2-295-DHLA-NOW. - Diet/Nutrition Diet/Nutrition Orders: Cardiac, No Concentrated Sweets (diabetic diet.) - Activity Activity Orders: Up ad bradly (with assist) - Services Needed Following services are medically necessary services: Physical Therapy, Occupational Therapy - Transfer Medications Prescriptions: Bisacodyl [Dulcolax] 10 mg RC DAILY PRN #30 supp.rect PRN Reason: Constipation Metoprolol XL (24 HR) Succ [Toprol Xl] 50 mg PO DAILY #30 tab.er.24h MOM Conc [MILK OF MAGNESIA conc] 10 ml PO DAILY #30 ud.liq Home Medications: Insulin ASPART [NovoLOG] 5 unit SQ TID MDD Sliding Scale 01/18/15 [History] Insulin Glargine,Hum.rec.anlog [Toujeo Solostar] 15 unit SQ HS 03/03/16 [History ] L. Acidophilus/Bifid. Animalis [One-A-Day Trubiotics Capsule] 1 each PO DAILY [History] Lutein 20 mg PO DAILY 04/17/16 [History] Cyanocobalamin (B-12) [Vitamin B12] 1,000 mcg IM QMONTH 01/01/17 [History] [place]-3/Dha/Epa/Fish Oil [Fish Oil 1,000 mg Softgel] 1 each PO DAILY 01/09/17 [ History] Mv-Mn/FA/Lycopene/Lut/Hb#178 [Nirav Multivit For Men Caplet] 1 each PO DAILY [History] Promethazine [Phenergan] 25 mg PO Q6HR PRN #30 tablet 03/06/17 [Rx] Benzonatate [Tessalon] 200 mg PO BID PRN #30 capsule 03/29/17 [Rx] Clopidogrel [Plavix] 75 mg PO DAILY 03/29/17 [History] Guaifenesin [Mucinex] 600 mg PO Q12H PRN 03/29/17 [History] amLODIPine [Norvasc] 5 mg PO DAILY #90 tablet 03/29/17 [Rx] Ferrous Sulfate 325 mg PO DAILY 04/04/17 [History] predniSONE [PredniSONE] 5 mg PO BIDWM 04/04/17 [History] Bisacodyl [Dulcolax] 10 mg RC DAILY PRN #30 supp.rect 04/10/17 [Rx] MOM Conc [MILK OF MAGNESIA conc] 10 ml PO DAILY #30 ud.liq 04/10/17 [Rx] Metoprolol XL (24 HR) Succ [Toprol Xl] 50 mg PO DAILY #30 tab.er.24h 04/10/17 [ Rx] Allergies/Adverse Reactions: 3 Allergy/AdvReac Type Severity Reaction Status Date / Time amlodipine AdvReac Difficulty Verified 04/08/17 11:49 Breathing diphenhydramine AdvReac Shakiness Verified 03/12/17 08:42 Certification: Further, I certify that my clinical findings support that this patient is homebound (i.e. absences from home require considerable and taxing effort and are for medical reasons or mormon services or infrequently or short duration when for other reasons) because: Homebound Reason: Patient requires assistance of a person or device to safely leave home Attestation: My signature below is to certify that this patient is under my care and that I, or nurse practitioner, or a physician's dietary assistant working with me, has a face-to -face encounter with this patient.
[2017-04-10 11:32] VITALS: BP 122/68
== END 2017-04-10 15:22 | disposition home health service (06) | DRG 866 ==
LOC: 2ANU → SUATTDRO 08:19
PROVIDERS: ADMIT Internal Medicine; ATTEND Internal Medicine

== ENCOUNTER 2017-04-30 13:10 | Observation (INO) ==
[2017-04-30] MEDS ORDERED: Aspirin 81 MG TAB.CHEW PO ONE (13:29)
[2017-04-30 13:46] LABS: Basophils % 0.3 %; Hematocrit 34.5 % (37.5-50.1); Hemoglobin 10.5 g/dL (12.9-16.9); Immature Granulocytes % 0.3 % (0-4); Lymphocytes # 0.9 K/mcL (0.6-4.6); Lymphocytes % 13.7 %; Mean Corpuscular HGB Conc 30.4 g/dL (31.6-35.5); Mean Corpuscular Hemoglobin 26.3 pg (28.0-33.3); Mean Corpuscular Volume 86.3 fL (83.0-100.0); Mean Platelet Volume 10.5 fL (9.4-12.4); Monocytes # 0.6 K/mcL (0.0-1.3); Monocytes % 9.3 %; Neutrophils # 4.9 K/mcL (1.6-8.9); Platelet Count 284 K/mcL (140-400); Red Cell Distribution Width 16.5 % (11.5-14.5); Segmented Neutrophils % 76.4 %
--- NOTE | 2017-04-30 13:50 | Emergency Department Note ---
Disposition Clinical Impression: Chest pain Qualifiers: Chest pain type: unspecified Qualified Code(s): R07.9 - Chest pain, unspecified Disposition: Admitted As Inpatient Condition: Good Referrals: Rozina Villeda MD [Primary Care Provider] - Forms: ED Satisfaction Letter Chest Pain HPI - General Chief Complaint: ED Chest Pain Stated Complaint: C/P Time Seen by Provider: 04/30/17 13:22 Source: patient Mode of arrival: private vehicle Limitations: no limitations Vital Signs Reviewed: Yes Nursing Notes Reviewed: Yes - History of Present Illness HPI Narrative: 81-year-old male history of CAD with reported 8 stents placed, recent ablation for atrial fibrillation who presents to the ER with a chief complaint of chest pain. Patient states he has had intermittent chest pain for the last several weeks. States that it happens 2-3 times a week. States it will last for minutes to hours. He usually does well on its own. Today he states it became more constant. He took 3 nitroglycerin at home which he states relieved his pain from an 8 down to a 2. He reports he had an ablation a few weeks ago for A. fib and has not felt himself in it since. No nausea vomiting or diarrhea. He has felt short of breath. No other complaints. Pt complaint: chest pain Onset (ago): day(s) Duration: intermittent Onset: during rest Pain Location: substernal Severity: mild Severity scale (1-10): 4 Quality: tightness Pain Radiation: neck Improves with: nitroglycerin Worsens with: nothing Associated symptoms: Reports: dyspnea. Denies: nausea, vomiting Treatments prior to arrival chest pain: nitroglycerin - Related Data On Oral Contraceptives: No Home Medications Medication Instructions Recorded Confirmed Insulin ASPART [NovoLOG] 0 - 11 unit SQ TID MDD Sliding 01/18/15 04/30/17 Scale Insulin Glargine,Hum.rec.anlog 15 unit SQ HS 03/03/16 04/30/17 [Naif Bowman] L. Acidophilus/Bifid. Animalis 1 each PO DAILY 04/17/16 04/30/17 [One-A-Day Trubiotics Capsule] Lutein 20 mg PO DAILY 04/17/16 04/30/17 Cyanocobalamin (B-12) [Vitamin B12] 1,000 mcg IM QMONTH 01/01/17 04/30/17 [place]-3/Dha/Epa/Fish Oil [Fish Oil 1 each PO DAILY 01/09/17 04/30/17 1,000 mg Softgel] Mv-Mn/FA/Lycopene/Lut/Hb#178 [Nirav 1 each PO DAILY 03/06/17 04/30/17 Multivit For Men Caplet] Clopidogrel [Plavix] 75 mg PO DAILY 03/29/17 04/30/17 Guaifenesin [Mucinex] 600 mg PO Q12H PRN 03/29/17 04/30/17 Aspirin [Lo-Dose Aspirin EC] 81 mg PO DAILY 04/16/17 04/30/17 Ferrous Sulfate 324 mg PO DAILY 04/30/17 04/30/17 Metoprolol Succinate 25 mg PO DAILY 04/30/17 04/30/17 amLODIPine [Norvasc] 5 mg PO DAILY 04/30/17 04/30/17 Previous Rx's Medication Instructions Recorded Promethazine [Phenergan] 25 mg PO Q6HR PRN #30 tablet 03/06/17 Benzonatate [Tessalon] 200 mg PO BID PRN #30 capsule 03/29/17 Bisacodyl [Dulcolax] 10 mg RC DAILY PRN #30 supp.rect 04/10/17 MOM Conc [MILK OF MAGNESIA conc] 10 ml PO DAILY #30 ud.liq 04/10/17 Tamsulosin [Flomax] 0.4 mg PO DAILY #30 cap.er.24h 04/16/17 predniSONE [PredniSONE] 5 mg PO BIDWM #60 tablet 04/17/17 Allergies Allergy/AdvReac Type Severity Reaction Status Date / Time amlodipine AdvReac Difficulty Verified 04/16/17 08:36 Breathing diphenhydramine AdvReac Shakiness Verified 04/16/17 08:36 All systems ED: reviewed and negative except as stated. Constitutional: Denies: fever Cardiovascular: Reports: chest pain. Denies: palpitations, dyspnea on exertion Respiratory: Reports: dyspnea Gastrointestinal: Denies: nausea, vomiting Chest Pain PMH - Past Medical History Medical history: Reports: arthritis, atrial fibrillation, cancer, coronary artery disease, diabetes, malignancy, myocardial infarction, renal disease, TIA Surgical history: Reports: angioplasty/stent, prostatectomy Psychiatric history: Reports: no psych history - Social History Smoking Status: Former smoker Alcohol use: Reports: none Drug use: Reports: none Physical Exam - General Limitations: no limitations General appearance: alert, in no apparent distress - Head Head exam: atraumatic - Eye Eye exam: Present: normal appearance - ENT ENT exam: normal exam - Neck Neck exam: Present: normal inspection, full ROM - Chest Chest inspection: Present: normal inspection, symmetric chest wall rise - Respiratory Respiratory exam: Present: normal lung sounds bilaterally - Cardiovascular Cardiovascular exam: Present: regular rate, normal rhythm, normal heart sounds - Abdominal Exam Abdominal exam: Present: soft, Non-Tender. Absent: tenderness - Extremities Exam Extremities exam: Present: normal inspection, full ROM - Expanded Upper Extremity Exam Shoulder exam: Present: normal inspection, full ROM Arm exam: Present: normal inspection, full ROM Elbow exam: Present: normal inspection, full ROM Forearm/Wrist exam: Present: normal inspection, full ROM Hand exam: Present: normal inspection, full ROM - Expanded Lower Extremity Exam Hip/Pelvis exam: Present: normal inspection, full ROM Upper leg exam: Present: normal inspection, full ROM Knee exam: Present: normal inspection, full ROM Lower leg exam: Present: normal inspection, full ROM Ankle exam: Present: normal inspection, full ROM Foot/toe exam: Present: normal inspection, full ROM - Skin Skin exam: Present: warm, dry Course Course Narrative: Patient seen and examined. Noted to be mildly hypotensive here. He is answering questions appropriately and is alert and in no acute distress. We will obtain an EKG, chest x-ray as well as labs including troponin. He had 3 nitroglycerin prior to arrival and reports his pain is currently at a 2 from 8. Given his pressure we will hold on nitroglycerin at this time. He will require admission for chest pain. Vital Signs Temperature 98.1 F 04/30/17 13:15 Pulse Rate 91 04/30/17 13:15 Respiratory Rate 18 04/30/17 13:15 Blood Pressure 85/47 04/30/17 13:15 O2 Sat by Pulse Oximetry 98 04/30/17 13:15 Temperature 98.1 F 04/30/17 13:15 Pulse Rate 96 04/30/17 14:35 Respiratory Rate 12 04/30/17 14:35 Blood Pressure 106/55 04/30/17 14:35 O2 Sat by Pulse Oximetry 94 04/30/17 14:35 Oxygen Delivery Oxygen Delivery Room Air Chest Pain - MDM Narrative Medical decision making narrative: 81-year-old male presents to the ER due to chest pain. Intermittently for the last several weeks. Reports more constant today. He recently had an ablation for atrial fibrillation. He took 3 nitroglycerin prior to arrival which improved his pain from an 8 down to a 2. His EKG shows no ischemic findings. Chest x-ray unremarkable. Initial troponin within normal limits. Patient was slightly hypotensive here likely from his nitroglycerin. We will hold on further measures at this time. Admitted to the hospitalist service. - Lab Data Lab results reviewed: Yes I reviewed the patient's lab results. Result diagrams: 04/30/17 13:33 04/30/17 13:33 Lab Results 04/30/17 04/30/17 04/30/17 Range/Units 13:33 13:33 13:33 WBC 6.4 (4.3-11.1) K/mcL RBC 4.00 L (4.19-5.50) M/mcL Hgb 10.5 L (12.9-16.9) g/dL Hct 34.5 L (37.5-50.1) % MCV 86.3 (83.0-100.0) fL MCH 26.3 L (28.0-33.3) pg MCHC 30.4 L (31.6-35.5) g/dL RDW 16.5 H (11.5-14.5) % Plt Count 284 (140-400) K/mcL MPV 10.5 (9.4-12.4) fL Immature Gran % 0.3 (0-4) % Seg Neutrophils % 76.4 % Lymphocytes % 13.7 % Monocytes % 9.3 % Eosinophils % 0.0 % Basophils % 0.3 % Neutrophils # 4.9 (1.6-8.9) K/mcL Lymphocytes # 0.9 (0.6-4.6) K/mcL Monocytes # 0.6 (0.0-1.3) K/mcL Eosinophils # 0.0 (0.0-0.6) K/mcL Basophils # 0.0 (0.0-0.2) K/mcL Sodium 133 L (136-145) mEq/L Potassium 4.4 (3.5-5.1) mEq/L Chloride 99 (98-107) mEq/L Carbon Dioxide 25 (23-29) mEq/L BUN 31 H (8-23) mg/dL Creatinine 1.59 H (0.70-1.30) mg/dL Est GFR ( Amer) 51 L (> 60) Est GFR (Non-Af Amer) 42 L (> 60) BUN/Creatinine Ratio 19 (6-26) Glucose 299 H (70-105) mg/dL Calculated Osmolality 294 (280-300) Calcium 9.3 (8.6-10.3) mg/dL Troponin I (< 0.04) ng/mL B-Natriuretic Peptide 39 (Less than 100) pg/mL 04/30/17 Range/Units 13:33 WBC (4.3-11.1) K/mcL RBC (4.19-5.50) M/mcL Hgb (12.9-16.9) g/dL Hct (37.5-50.1) % MCV (83.0-100.0) fL MCH (28.0-33.3) pg MCHC (31.6-35.5) g/dL RDW (11.5-14.5) % Plt Count (140-400) K/mcL MPV (9.4-12.4) fL Immature Gran % (0-4) % Seg Neutrophils % % Lymphocytes % % Monocytes % % Eosinophils % % Basophils % % Neutrophils # (1.6-8.9) K/mcL Lymphocytes # (0.6-4.6) K/mcL Monocytes # (0.0-1.3) K/mcL Eosinophils # (0.0-0.6) K/mcL Basophils # (0.0-0.2) K/mcL Sodium (136-145) mEq/L Potassium (3.5-5.1) mEq/L Chloride (98-107) mEq/L Carbon Dioxide (23-29) mEq/L BUN (8-23) mg/dL Creatinine (0.70-1.30) mg/dL Est GFR ( Amer) (> 60) Est GFR (Non-Af Amer) (> 60) BUN/Creatinine Ratio (6-26) Glucose (70-105) mg/dL Calculated Osmolality (280-300) Calcium (8.6-10.3) mg/dL Troponin I < 0.03 (< 0.04) ng/mL B-Natriuretic Peptide (Less than 100) pg/mL - Radiology Data Radiology results reviewed: Yes I reviewed the patient's radiology results. Chest X-Ray 04/30/17 13:29 IMPRESSION: No acute findings. D/ / Morales Go / Morales Go Interpreting Provider: Morales Go - EKG Data EKG attestation: Yes I reviewed and interpreted this EKG. EKG results narrative: EKG demonstrates sinus rhythm with PVC with a rate of 90 bpm. Normal axis. Normal intervals. Normal R-wave progression. Nonspecific ST-T wave changes in the inferior leads. No gross ST elevations or depressions. No acute ischemic findings. No significant changes from previous EKG dated 04/05/17. Heart Score - Score History: Moderately Suspicious EKG: Normal Age: Greater than 65 Risk Factors: Equal/Greater than 3 risk factor or history of atherosclerotic disease Troponin: Less than normal limit HEART Score Total: 5 S.B.A.R. - S.B.A.R. Situation: Demographics, MOA Background: Presenting Complaint, Relevant PMH, Meds, & Allergies Assessment: Course and respsone to treatment, Exam Concerns, Patient/Family Expectation, Pertinant Lab Results Recommendation: Barrier(s) to disposition, Recommendation based on pending studies, treatments, or consults S.B.A.R. Report Given to: Dr. Gomez
[2017-04-30 13:57] LABS: Calcium 9.3 mg/dL (8.6-10.3); Potassium 4.4 mEq/L (3.5-5.1)
[2017-04-30] MEDS ORDERED: Naloxone 0.4 MG/ML INJ IVP PRN (16:35)
[2017-04-30] MEDS ORDERED: Acetaminophen 325 MG TABLET PO PRN (16:45)
[2017-04-30] MEDS ORDERED: 0.9 % Sodium Chloride 1,000 ML IVC SCH (16:45)
[2017-04-30] MEDS ORDERED: Bisacodyl 10 MG RECTAL SUPPOSITORY RC PRN (16:51)
[2017-04-30] MEDS ORDERED: Benzonatate 100 MG CAPSULE PO PRN (16:51)
[2017-04-30] MEDS ORDERED: MOM Conc 10 ML UD.LIQ PO PRN (16:51)
[2017-04-30] MEDS ORDERED: D5% in Water 1,000 ML IVC PRN (16:53)
[2017-04-30] MEDS ORDERED: *HR* Dextrose 50 % in Water (Syg) 50 ML SYRINGE IVP PRN (16:53)
[2017-04-30] MEDS ORDERED: Dextrose Gel 15 GM/37.5 ML TUBE PO PRN ×2 (16:53)
[2017-04-30] MEDS ORDERED: Cyanocobalamin (B-12) 1,000 MCG/ML VIAL IM SCH (17:00)
--- NOTE | 2017-04-30 17:14 | Event Note ---
Date of Encounter: 04/30/17 Time of Encounter: 17:13 Patient seen and examined with nurse practitioner. Agree with assessment and plan
[2017-04-30] MEDS ORDERED: Nitroglycerin 0.4 MG TAB.SUBL SL PRN (17:15)
--- NOTE | 2017-04-30 17:15 | Internal Med History&Physical ---
Date of Encounter: 04/30/17 Time of Encounter: 16:00 Assessment and Plan (1) Chest pain Current visit: Yes Status: Acute Acute on chronic chest pain that is intermittent for the past several weeks. Worse today. Patient states symptoms similar to previous CO which required heart catheterization due to blockage. Describes centralized pressure in chest with radiation to back of neck and back. Patient reports 3 nitroglycerin at home reduce pain from 8-2. Echocardiogram on 04/06/17 showed technically adequate exam, normal sinus rhythm, mild concentric left ventricular hypertrophy , mild left ventricular diastolic dysfunction, LVEF 60%, trace aortic regurgitation, trace mitral regurgitation, and mild tricuspid regurgitation. Initial troponin less than 0.03. Trend x2. Continuous cardiac telemetry. Continue aspirin. Lipitor 40 mg by mouth now continue 20 mg daily tomorrow. Lipid panel in a.m. labs. Continue patient's Plavix. Cardiology consult ordered and discussed with Dr. Winston Andrade and I appreciate consult. Patient discussed Dr. Gomez who is in agreement with plan of care. Patient is high risk due to current chest pain, history of CO 3 and stents 8, history, and risk factors. Observation. Qualifiers: Chest pain type: unspecified Qualified Code(s): R07.9 - Chest pain, unspecified (2) Generalized weakness Current visit: Yes Status: Acute Acute generalized weakness over the past several weeks post-ablation. Falls/ safety precautions, up with assist, bed rest w/bathroom w/assist only. SW/PT/OT consults to assess pt. for possible home needs, ambulation strength and safety, and rehabilitation services post-discharge. (3) SOB (shortness of breath) Current visit: Yes Status: Acute Acute SOB related to current chest pain. Pt. rates as mild and denies home O2 use. Supplemental O2 w/titration and SpO2 monitoring. (4) Hyponatremia Current visit: Yes Status: Acute Acute hyponatremia w/sodium of 133 on admission. 0.9 NS IV fluids @ 75 mL/HR. Monitor f/u labs for sodium status. (5) Diabetes Current visit: Yes Status: Chronic Hx of chronic diabetes controlled w/insulin. Continue pts. HS insulin and add low-dose correction insulin sliding scale with hypoglycemic protocol. BG checks before meals at bedtime. A1c in a.m. labs. 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 Currently not anticoagulated. Continue patient's aspirin therapy and Plavix. Pt. reports adverse rxn to Norvasc during last admission so med added to allergy list. Pt. currently takes no HTN meds. Qualifiers: Coronary Disease-Associated Artery/Lesion type: eek artery [place] vs. transplanted heart: eek heart Associated angina: with unstable angina Qualified Code(s): I25.110 - Atherosclerotic heart disease of eek coronary artery with unstable angina pectoris (7) Afib Current visit: Yes Status: Chronic Hx of chronic atrial fibrillation w/ablation six weeks ago. Pt. reports only a few flutters since ablation but reports increased weakness. Sinus rhythm on exam. EKG today shows sinus rhythm with occasional ventricular premature complexes. Continuous cardiac telemetry. Qualifiers: Atrial fibrillation type: paroxysmal Qualified Code(s): I48.0 - Paroxysmal atrial fibrillation (8) CKD stage 3 due to type 2 diabetes mellitus Current visit: Yes Status: Chronic Hx of CKD. Currently stage 3 w/GFR of 42 and creatitine of 1.59. IV fluids @ 75 mL/HR. Monitor I&O and daily weight. Avoid nephrotoxins. (9) Prostate cancer metastatic to multiple sites Current visit: Yes Status: Chronic Hx of prostate cnacer w/metastases to liver and bone. Pt. reports next tx . Pt. to f/u w/oncology OP. (10) DVT prophylaxis Current visit: Yes Status: Acute Heparin 5,000 units SQ Q8 for DVT prophylaxis. Monitor pt. for signs of bleeding. Internal Medicine - H&P: HPI Chief complaint: Chest pain Admitted From: Emergency Dept Plans for Post Hospital Care: Home History of present illness: Mr. Parsons is a 81 year old male with medical hx of arthritis, atrial fibrillation w/ablation 6 weeks ago; cancer of liver, prostate, and bone; CAD, diabetes controlled with insulin, myocardial infarction 3, CK-MB, and TIAs presents from the ED with chief complaint of chest pain and SOB for the past several weeks that became worse today. Reports as pressure in the center of his chest w/radiation to back of neck and back. States 3 nitroglycerin today took pain from 8 to 2. Pt. states pain can last minutes to hours. Reports SOB, generalized weakness, numbness in right fingers/hand, and CP but denies recent illness, fever, chills, nausea, vomiting, changes in vision, palpitations, abdominal pain, diarrhea, constipation, tingling, unusual bleeding, dizziness, lightheadedness, pre-syncope, or syncope. Past Med Surg Social Fam HX - Past Medical History Source: patient, old records reviewed, obtained from family Medical history: arthritis, atrial fibrillation (w/ablation 6 weeks ago), cancer (Liver, prostate, bone), coronary artery disease, diabetes (Insulin controlled), myocardial infarction, renal disease, TIA Psychiatric history: no psych history - Past Surgical History Surgical History: angioplasty/stent (x8), prostatectomy - Social History Smoking Status: Former smoker Packs per day: < 1 PPD - Reports quitting 60 years ago Smokeless Tobacco Status: No Alcohol use: none Drug use: none Current living situation: Home, With Family Activity Level: Independent ambulation Recent Out of Country Travel Within the Last 8 Weeks: No Exposure or Possible Exposure to Illness During Travel: No - Family History Mother Race: Family Member Ethnicity: Non- Living Status: Age at : 70 Cause of : CKD Hx Family Genitourinary Disorders: Yes (CKD) Father Race: Family Member Ethnicity: Non- Living Status: (69) Age at : 69 Cause of : Prostate cancer Hx Family Cancer: Yes (Prostate) Hx Family Endocrine Disorder: Yes (DM) Brother Race: Family Member Ethnicity: Non- Living Status: Age at : 60 Cause of : Unknown Sister Race: Family Member Ethnicity: Non- Living Status: Age at : 62 Cause of : Ovarian cancer Hx Family Cancer: Yes (Ovarian) Internal Medicine - H&P: Meds Insulin ASPART [NovoLOG] 0 - 11 unit SQ TID MDD Sliding Scale 01/18/15 [History] Insulin Glargine,Hum.rec.anlog [[place] Solostar] 15 unit SQ HS 03/03/16 [History ] L. Acidophilus/Bifid. Animalis [One-A-Day Trubiotics Capsule] 1 each PO DAILY [History] Lutein 20 mg PO DAILY 04/17/16 [History] Cyanocobalamin (B-12) [Vitamin B12] 1,000 mcg IM QMONTH 01/01/17 [History] [place]-3/Dha/Epa/Fish Oil [Fish Oil 1,000 mg Softgel] 1 each PO DAILY 01/09/17 [ History] Mv-Mn/FA/Lycopene/Lut/Hb#178 [Nirav Multivit For Men Caplet] 1 each PO DAILY [History] Promethazine [Phenergan] 25 mg PO Q6HR PRN #30 tablet 03/06/17 [Rx] Benzonatate [Tessalon] 200 mg PO BID PRN #30 capsule 03/29/17 [Rx] Clopidogrel [Plavix] 75 mg PO DAILY 03/29/17 [History] Bisacodyl [Dulcolax] 10 mg RC DAILY PRN #30 supp.rect 04/10/17 [Rx] Aspirin [Lo-Dose Aspirin EC] 81 mg PO DAILY 04/16/17 [History] Tamsulosin [Flomax] 0.4 mg PO DAILY #30 cap.er.24h 04/16/17 [Rx] Ferrous Sulfate 324 mg PO DAILY 04/30/17 [History] MOM Conc [MILK OF MAGNENRIKE conc] 10 ml PO PRN PRN 04/30/17 [History] predniSONE [PredniSONE] 5 mg PO BID 04/30/17 [History] 3 Allergy/AdvReac Type Severity Reaction Status Date / Time amlodipine AdvReac Difficulty Verified 04/16/17 08:36 Breathing diphenhydramine AdvReac Shakiness Verified 04/16/17 08:36 lorazepam [From Ativan] AdvReac Seizure Verified 04/30/17 17:08 All Systems PM: A 10-system review of systems was performed and is negative for pertinent findings except as documented above in the HPI. - Constitutional Constitutional: as per HPI, fatigue, weakness, no chills, no fever(s), no night sweats - EENT Eyes: no change in vision, no discharge, no pain, no photophobia Ears: no ear discharge, no ear pain, no tinnitus Nose, mouth and throat: no dysphagia, no nasal discharge, no neck pain, no sore throat - Breasts Breasts: as per HPI - Cardiovascular Cardiovascular ROS IM: as per HPI, chest pain, dyspnea, dyspnea on exertion, no diaphoresis, no lightheadedness, no palpitations, no syncope - Respiratory Respiratory: as per HPI, cough, dyspnea, dyspnea on exertion, no wheezing, no excessive phlegm production - Gastrointestinal Gastrointestinal: no abdominal pain, no diarrhea, no hematemesis, no hematochezia, no melena, no nausea, no vomiting - Genitourinary Genitourinary ROS male: as per HPI - Musculoskeletal Musculoskeletal ROS IM: no numbness, no tingling - Integumentary Integumentary IM: no rash, no unusual bruising - Neurological Neurological ROS: no confusion, no convulsions, no focal weakness, no numbness, no tingling, no tremor(s) - Psychiatric Psychiatric: as per HPI - Endocrine Endocrine IM: as per HPI - Hematologic/Lymphatic Hematologic/Lymphatic: no easy bruising - Allergic/Immunologic Allergic/Immunologic: as per HPI - Constitutional Vitals: Temp Pulse Resp BP Pulse Ox 98.1 F 101 16 89/46 98 04/30/17 13:15 04/30/17 15:19 04/30/17 15:19 04/30/17 15:19 04/30/17 16:57 General appearance: Present: cooperative, A&O X 3, pleasant, no acute distress, answers questions appropriately - Head Head exam: Present: atraumatic, normocephalic - Eye Eye exam: Present: PERRL, conjuntiva pink, sclera anicteric Pupils: Present: PERRL - ENT ENT exam: Present: normal exam, normal external ear exam - Neck Neck exam general surgery: Present: supple, trachea midline. Absent: lymphadenopathy - Respiratory Respiratory exam: Present: CTAB. Absent: accessory muscle use, rales, rhonchi, wheezes - Cardiovascular Cardiovascular exam: Present: RRR, +S1, +S2. Absent: diastolic murmur, gallop, rubs, systolic murmur - GI/Abdominal GI/Abdominal exam: Present: normal bowel sounds, soft, no peritoneal signs. Absent: distended, tenderness - Rectal Rectal exam: Present: deferred - Additional comments: exam deferred. - Extremities Exam Extremities exam: Present: warm, radial pulses palpable and symmetrical. Absent : calf tenderness, cyanotic, pedal edema - Back Exam Back exam: Present: normal inspection - Neurological Exam Neurological exam: Present: CN II-XII intact, oriented X3, no focal deficits. Absent: pronater drift, facial droop, speech deficit - Psychiatric Psychiatric exam: Present: normal affect, normal mood - Skin Skin exam: Present: dry, intact Internal Med - H&P Results - Labs CBC & Chem 7: 04/30/17 13:33 04/30/17 13:33 - EKG Data EKG shows normal: sinus rhythm - EKG Data Prior EKG available for review: yes EKG comments: 04/30/17 17:35 EKG dated 04/05/17 shows sinus tachycardia with possible inferior myocardial infarction (probably old), baseline artifact. EKG dated 04/30/17 shows sinus rhythm with occasional ventricular premature complexes, borderline ECG. - Diagnostic Studies Chest x-ray Additional comments: Impressions Chest X-Ray 04/30/17 13:29 IMPRESSION: No acute findings. D/ / Morales Go / Morales Go Interpreting Provider: Morales Go
[2017-04-30 17:51] LABS: Prothrombin Time 10.9 Seconds (9.4-12.1)
[2017-04-30 17:53] LABS: Activated Partial Thrombo Time 24.7 Seconds (26.0-36.0)
[2017-04-30] MEDS ORDERED: *HR* Heparin 5,000 UNIT/ML VIAL IVP ONE (18:06)
[2017-04-30] MEDS ORDERED: *HR* Heparin 5,000 UNIT/ML VIAL IVP PRN ×2 (18:06)
[2017-04-30] MEDS ORDERED: Heparin 25,000 UNIT/500 ML D5W 25,000 UNIT/500 ML BAG IVC SCH (18:15)
[2017-04-30] MEDS: predniSONE 5 MG TABLET PO SCH (18:22)
[2017-04-30 19:41] LABS: Hematocrit 32.7 % (37.5-50.1); Hemoglobin 10.3 g/dL (12.9-16.9); Mean Corpuscular HGB Conc 31.5 g/dL (31.6-35.5); Mean Corpuscular Hemoglobin 26.9 pg (28.0-33.3); Mean Corpuscular Volume 85.4 fL (83.0-100.0); Mean Platelet Volume 10.3 fL (9.4-12.4); Platelet Count 245 K/mcL (140-400); Red Blood Count 3.83 M/mcL (4.19-5.50); Red Cell Distribution Width 16.6 % (11.5-14.5)
[2017-04-30 19:47] LABS: Activated Partial Thrombo Time 25.5 Seconds (26.0-36.0)
[2017-04-30] MEDS ORDERED: Insulin LISPRO 300 UNITS/3 ML VIAL SQ SCH (21:00)
[2017-04-30] MEDS ORDERED: Insulin DETEMIR 100 UNIT/ML X5UNITS SQ SCH (21:00)
[2017-04-30] MEDS ORDERED: *HR* Heparin 5,000 UNIT/ML VIAL SQ SCH (22:00)
[2017-04-30 22:01] LABS: Bilirubin,Urine Negative (Negative); Blood,Urine Negative (Negative); Clarity,Urine Clear (Clear); Color,Urine Yellow (Yellow); Glucose,Urine (UA) >=1000 mg/dL (Normal); Ketones,Urine Negative (Negative); Leukocyte Esterase,Urine Negative (Negative); Nitrite,Urine Negative (Negative); Protein,Urine Negative (Neg-Trace); Specific Gravity,Urine 1.027 (1.010-1.025); Urobilinogen,Urine Normal (Normal)
[2017-05-01 01:19] LABS: Basophils % 0.3 %; Eosinophils % 0.2 %; Hematocrit 31.1 % (37.5-50.1); Hemoglobin 9.6 g/dL (12.9-16.9); Immature Granulocytes % 0.5 % (0-4); Lymphocytes % 14.5 %; Mean Corpuscular HGB Conc 30.9 g/dL (31.6-35.5); Mean Corpuscular Hemoglobin 26.2 pg (28.0-33.3); Mean Platelet Volume 10.5 fL (9.4-12.4); Monocytes # 0.7 K/mcL (0.0-1.3); Monocytes % 9.8 %; Platelet Count 252 K/mcL (140-400); Red Blood Count 3.66 M/mcL (4.19-5.50); Red Cell Distribution Width 16.5 % (11.5-14.5); Segmented Neutrophils % 74.7 %
[2017-05-01 01:28] LABS: Hemoglobin A1C 8.7 %
[2017-05-01 01:35] LABS: Albumin 3.2 g/dL (3.5-5.7); Albumin/Globulin Ratio 1.5 (1.1-2.2); Bilirubin,Total 0.4 mg/dL (0.3-1.0); Calcium 8.6 mg/dL (8.6-10.3); Globulin 2.2 g/dL (2.4-3.5); Potassium 4.1 mEq/L (3.5-5.1); Total Protein 5.4 g/dL (6.4-8.9)
[2017-05-01] MEDS: Insulin LISPRO 300 UNITS/3 ML VIAL SQ SCH ×3 (08:12→13:22)
[2017-05-01] MEDS ORDERED: (Omega-3/Dha/Epa/Fish Oil [Fish Oil 1,000 Mg Softgel]) PO SCH (09:00)
[2017-05-01] MEDS ORDERED: (Lutein [Lutein] 20 MG) PO SCH (09:00)
[2017-05-01] MEDS ORDERED: Lactobacillus 1 EACH CAP.SPRINK PO SCH (09:00)
[2017-05-01] MEDS ORDERED: Multivit/Ca/Min/Fe/FA 1 TAB TABLET PO SCH (09:00)
[2017-05-01] MEDS ORDERED: Aspirin Enteric Coated 81 MG Tablet PO SCH (09:00)
--- NOTE | 2017-05-01 09:04 | Cardiology Consult Note ---
<Erasmo Ward - Last Filed: 05/01/17 14:22> Date of Encounter: 05/01/17 Time of Encounter: 09:00 Assessment and Plan (1) Chest pain Status: Acute Per Cardiology: Atypical CP at rest, now resolved.Trops - x 3. We'll discontinue IV heparin drip. I discussed with patient and family regarding potential further ischemic evaluation in terms of stress testing, however they prefer to monitor observe and follow-up in outpatient setting. Cardiology will sign off, we consult as needed, follow-up arranged. Will discuss with Dr. Maddox. All questions answered. Last echo 04/06/17: Impressions: Technically adequate exam. Normal sinus rhythm. Mild concentric left ventricular hypertrophy. Mild left ventricular diastolic dysfunction. LVEF 60%. Trace aortic regurgitation. Trace mitral regurgitation. Mild tricuspid regurgitation. Left Ventricular Wall Motion: Rest Echo Findings All wall segments showed normal motion. Qualifiers: Chest pain type: unspecified Qualified Code(s): R07.9 - Chest pain, unspecified (2) CAD (coronary artery disease) Status: Chronic Per Cardiology: History of CAD with multiple stents. Last heart catheterization showed mild to moderate CAD with FFR of the RCA 0.86 and 0.85 with patent proximal and mid RCA stents and patent circumflex stents. On aspirin, statin, Plavix. Qualifiers: Coronary Disease-Associated Artery/Lesion type: [place] artery [place] vs. transplanted heart: [place] heart Associated angina: with unstable angina Qualified Code(s): I25.110 - Atherosclerotic heart disease of [place] coronary artery with unstable angina pectoris (3) Afib Status: Chronic Per Cardiology: Currently sinus rhythm on telemetry with no evidence noted. Reported atrial fibrillation an outside facility about one 2 months ago-- had SVT ablation at [facility] March 19, 2017. Patient remains on aspirin only for anticoagulation. Patient and family very adamant to no Coumadin or other anticoagulants. They are aware of increased stroke risk. Qualifiers: Atrial fibrillation type: paroxysmal Qualified Code(s): I48.0 - Paroxysmal atrial fibrillation (4) Elevated d-dimer Status: Acute Per Cardiology: VQ scan showed low probability for PE. (5) Prostate cancer metastatic to multiple sites Status: Chronic Per Cardiology: Patient with known history of prostate cancer with metastasis to liver and spine. Currently full code. Has been seen by oncology (6) CKD stage 3 due to type 2 diabetes mellitus Status: Chronic Per Cardiology: History of CK D stage IIIB. Kidney function currently stable. Discussion w patient/family: The assessment and plan as outlined above was discussed with the patient and/or family members who expressed understanding and agreement. All questions were answered. Thank you for involving us in the care of your patient. Please call with any questions. History of Present Illness Consult date: 05/01/17 Requesting physician: Juan M Rush Consult reason: CP Chief complaint: CP History of present illness: Mr. Parsons is a 81 year old male with a relevant past medical history of CAD , SVT, paroxysmal atrial fibrillation/flutter, DM 2, hypertension, hyperlipidemia, TIAs, dementia, CK D, and prostate cancer with metastasis to bone and liver. Was seen during hospital stay March 2017 by electrophysiology and started on amiodarone. Was on aspirin only for anticoagulation. Seen by cardiology during hospital stay later in March 2017 with echo showing EF 60%. Cardiology consult for chest pain. Previous records reviewed: "Had atrial fibrillation w/ablation 6 weeks ago; cancer of liver, prostate, and bone; CAD, diabetes controlled with insulin, myocardial infarction 3, CK-MB, and TIAs presents from the ED with chief complaint of chest pain and SOB for the past several weeks that became worse today. Reports as pressure in the center of his chest w/radiation to back of neck and back. States 3 nitroglycerin today took pain from 8 to 2. Pt. states pain can last minutes to hours. Reports SOB, generalized weakness, numbness in right fingers/hand, and CP but denies recent illness, fever, chills, nausea, vomiting, changes in vision , palpitations, abdominal pain, diarrhea, constipation, tingling, unusual bleeding, dizziness, lightheadedness, pre-syncope, or syncope". Patient seen with family at bedside. He reports main concern was worsening shortness of breath at rest and with exertion. He reports yesterday he had some midsternal chest tightness as above, now resolved. He denies any chest pain. He reports overall source of breath has improved. He denies any other concerns or complaints. Patient and family reported to me when I arrived in the room they would like to go home. Past Med Surg Social Fam HX - Past Medical History Attestation: Yes The following information was validated with the patient. Source: patient, old records reviewed, obtained from family Medical history: arthritis, atrial fibrillation (w/ablation 6 weeks ago), cancer (Liver, prostate, bone), coronary artery disease, diabetes (Insulin controlled), myocardial infarction, renal disease, TIA Psychiatric history: no psych history - Past Surgical History Surgical History: angioplasty/stent (x8), prostatectomy - Social History Smoking Status: Former smoker Packs per day: < 1 PPD - Reports quitting 60 years ago Smokeless Tobacco Status: No Alcohol use: none Drug use: none - Family History Mother Race: Family Member Ethnicity: Non- Living Status: Age at : 70 Cause of : CKD Hx Family Cardiac Disorders: No Hx Family Respiratory Disorders: No Hx Family Cancer: Yes Hx Family GI Disorders: No Hx Family Genitourinary Disorders: Yes (CKD) Hx Family Endocrine Disorder: No Hx Family Neuromuscular Disorders: No Hx Family Neurologic Disorders: No Hx Family HEENT Disorders: No Hx Family Autoimmune Disorders: No Father Race: Family Member Ethnicity: Non- Living Status: (69) Age at : 69 Cause of : Prostate cancer Hx Family Cancer: Yes (Prostate) Hx Family Endocrine Disorder: Yes (DM) Brother Race: Family Member Ethnicity: Non- Living Status: Age at : 60 Cause of : Unknown Sister Race: Family Member Ethnicity: Non- Living Status: Age at : 62 Cause of : Ovarian cancer Hx Family Cancer: Yes (Ovarian) Medications and Allergies Insulin ASPART [NovoLOG] 0 - 11 unit SQ TID MDD Sliding Scale 01/18/15 [History] Insulin Glargine,Hum.rec.anlog [Toujeo Solostar] 15 unit SQ HS 03/03/16 [History ] L. Acidophilus/Bifid. Animalis [One-A-Day Trubiotics Capsule] 1 each PO DAILY [History] Lutein 20 mg PO DAILY 04/17/16 [History] Cyanocobalamin (B-12) [Vitamin B12] 1,000 mcg IM QMONTH 01/01/17 [History] [place]-3/Dha/Epa/Fish Oil [Fish Oil 1,000 mg Softgel] 1 each PO DAILY 01/09/17 [ History] Mv-Mn/FA/Lycopene/Lut/Hb#178 [Nirav Multivit For Men Caplet] 1 each PO DAILY [History] Promethazine [Phenergan] 25 mg PO Q6HR PRN #30 tablet 03/06/17 [Rx] Benzonatate [Tessalon] 200 mg PO BID PRN #30 capsule 03/29/17 [Rx] Clopidogrel [Plavix] 75 mg PO DAILY 03/29/17 [History] Bisacodyl [Dulcolax] 10 mg RC DAILY PRN #30 supp.rect 04/10/17 [Rx] Aspirin [Lo-Dose Aspirin EC] 81 mg PO DAILY 04/16/17 [History] Tamsulosin [Flomax] 0.4 mg PO DAILY #30 cap.er.24h 04/16/17 [Rx] Ferrous Sulfate 324 mg PO DAILY 04/30/17 [History] MOM Conc [MILK OF [place] conc] 10 ml PO PRN PRN 04/30/17 [History] predniSONE [PredniSONE] 5 mg PO BID 04/30/17 [History] 3 Allergy/AdvReac Type Severity Reaction Status Date / Time amlodipine AdvReac Difficulty Verified 04/16/17 08:36 Breathing diphenhydramine AdvReac Shakiness Verified 04/16/17 08:36 lorazepam [From Ativan] AdvReac Seizure Verified 04/30/17 17:08 All Systems Review: A 10-system review of systems was performed and is negative for pertinent findings except as documented above in the HPI. - Constitutional Constitutional: fatigue - Cardiovascular Cardiovascular: as per HPI, chest pain at rest, dyspnea at rest, dyspnea on exertion Physical Examination Vital Signs, Last 4 Hours Temp Pulse Resp BP Pulse Ox 05/01/17 07:58 97.5 F L 88 18 121/63 96 General: Conversant, No Apparent Distress, Other (pale) HEENT: Atraumatic, Normocephaly, Mucus Membranes Moist Neck: No JVD, Normal carotid pulses Cardiac: Reg Rate and Rhythm, Normal S1 and S2, No Murmur Lungs: Normal Breath Sounds, No Wheeze, Rales, Rhonchi Neuro: Alert and responsive, No focal deficits noted Abdomen: Soft, Non-Tender Skin: No rashes noted on visualized skin Musculoskeletal: No Chest Wall Tenderness Extremities: No Clubbing, No Cyanosis, No Edema, Normal Pulses Results 05/01/17 00:56 05/01/17 00:56 Lab Results Laboratory Tests 04/30/17 04/30/17 04/30/17 13:33 13:33 17:25 D-Dimer 1774 H Creatinine Est GFR (Non-Af Amer) Troponin I < 0.03 B-Natriuretic Peptide 39 04/30/17 05/01/17 05/01/17 19:31 00:55 00:56 D-Dimer Creatinine 1.49 H Est GFR (Non-Af Amer) 45 L Troponin I < 0.03 < 0.03 B-Natriuretic Peptide ITS Impressions Chest X-Ray 04/30/17 13:29 IMPRESSION: No acute findings. D/ / Morales Go / Morales Go Interpreting Provider: Morales Go Pulmonary Perfusion Imaging 04/30/17 16:54 IMPRESSION: Low probability for pulmonary embolism. D/ / Eamon Khan MD / Eamon Khan MD Interpreting Provider: Eamon Khan MD Intake & Output 04/28/17 04/29/17 04/30/17 05/01/17 23:59 23:59 23:59 23:59 Intake Total 0 / 0 316 / 316 Output Total 400 / 400 Balance -400 / -400 316 / 316 Weight 65.119 kg 65.363 kg Active Medications Acetaminophen (Tylenol) 650 mg PO Q6HR PRN PRN Reason: Mild Pain (1-3) Stop: 10/30/17 16:46 Aspirin (Aspirin Ec) 81 mg PO DAILY DEBORAH Stop: 10/31/17 09:01 Atorvastatin Calcium (Lipitor) 20 mg PO HS DEBORAH Stop: 10/31/17 21:01 Benzonatate (Tessalon) 200 mg PO BID PRN PRN Reason: Cough Bisacodyl (Dulcolax) 10 mg RC DAILY PRN PRN Reason: Constipation Stop: 10/30/17 16:52 Clopidogrel Bisulfate (Plavix) 75 mg PO DAILY DEBORAH Stop: 10/31/17 09:01 Dextrose/Water (Dextrose 50% (Syg)) 25 ml IVP AD PRN PRN Reason: Hypoglycemia Stop: 10/30/17 16:54 Ferrous Sulfate (Ferrous Sulfate) 325 mg PO DAILY DEBORAH Stop: 10/31/17 09:01 Glucagon (Glucagen) 1 mg IM ONCE PRN PRN Reason: Hypoglycemia Stop: 10/30/17 16:54 Glucose (Gluctose) 15 gm PO ONCE PRN PRN Reason: Hypoglycemia Stop: 10/30/17 16:54 Glucose (Gluctose) 30 gm PO ONCE PRN PRN Reason: Hypoglycemia Stop: 10/30/17 16:54 Heparin Sodium (Porcine) (Heparin) 4,600 unit 70 unit/kg (4600 unit) IVP Q6HR PRN PRN Reason: SEE COMMENTS Stop: 10/30/17 18:07 Heparin Sodium (Porcine) (Heparin) 2,300 unit 35 unit/kg (2300 unit) IVP Q6H PRN PRN Reason: SEE COMMENTS Stop: 10/30/17 18:07 Dextrose (Dextrose 5%) 1,000 mls @ 100 mls/hr IVC .Q10H PRN PRN Reason: HYPOGLYCEMIA Stop: 10/30/17 16:54 Heparin Sodium/Dextrose (Heparin 25,000 Unit/500 Ml D5w) 25,000 unit in 500 mls @ 18.233 mls/hr IVC .Q24H DEBORAH; 14 UNIT/KG/HR PRN Reason: Protocol Stop: 10/30/17 18:16 Last Titration: 05/01/17 08:13 Dose: 14 unit/kg/hr, 18.233 mls/hr Insulin Detemir (Levemir) 15 unit SQ HS DEBORAH Stop: 10/30/17 21:01 Last Admin: 04/30/17 21:38 Dose: 15 unit Insulin Human Lispro (Humalog) 0 units SQ TIDAC DEBORAH PRN Reason: Protocol Stop: 10/31/17 07:31 Last Admin: 05/01/17 08:12 Dose: Not Given Insulin Human Lispro (Humalog) 0 units SQ HS DEBORAH PRN Reason: Protocol Stop: 10/30/17 21:01 Last Admin: 04/30/17 21:38 Dose: 7 units Lactobacillus Acidophilus/Rhamnosus (Culturelle) 1 each PO DAILY DEBORAH Stop: 10/31/17 09:01 Magnesium Hydroxide (Milk Of Magnesia Conc) 10 ml PO DAILY PRN PRN Reason: CONSTIPATION Stop: 10/30/17 16:52 Multivitamins/Calcium (Thera M Plus) 1 tab PO DAILY DEBORAH Stop: 10/31/17 09:01 Naloxone HCl (Narcan) 0.4 mg IVP Q2MIN PRN PRN Reason: Opioid Reversal Stop: 10/30/17 16:36 Nitroglycerin (Nitroglycerin) 0.4 mg SL Q5MIN PRN PRN Reason: Chest Pain Stop: 10/30/17 17:16 Pharmacy Profile Note (Patient Taking Own Medication) 20 each PO DAILY DEBORAH Stop: 10/31/17 09:01 Pharmacy Profile Note (Patient Taking Own Medication) 1 each PO DAILY DEBORAH Stop: 10/31/17 09:01 Prednisone (Prednisone) 5 mg PO BIDWM DEBORAH Stop: 10/30/17 17:46 Last Admin: 04/30/17 18:22 Dose: 5 mg Promethazine HCl (Phenergan) 25 mg PO Q6HR PRN PRN Reason: Nausea Stop: 10/30/17 16:52 Tamsulosin HCl (Flomax) 0.4 mg PO HS DEBORAH PRN Reason: Protocol Stop: 10/30/17 21:01 Last Admin: 04/30/17 21:37 Dose: 0.4 mg - Imaging and Cardiology Chest Xray: report reviewed Echo: report reviewed Cardiac cath: report reviewed - EKG Interpretation EKG results cardiology: personally reviewed, normal ECG, sinus rhythm, other ( Plan is reviewed and shows sinus rhythm in the 70s, average heart rate the past 12 hours 84, no significant events noted) Consult Discharge Plan - Plan Instructions: Chest Pain (DC), Diabetes Mellitus Type 2 in Adults (DC) Additional Instructions: Follow-up with primary care physician within the next 7 days. Follow-up with cardiology as needed Referrals: Rozina Villeda MD [Primary Care Provider] - 05/04/17 1:30 pm <Louis Maddox - Last Filed: 05/03/17 15:40> Date of Encounter: 05/01/17 Time of Encounter: 19:30 - Attending Attestation I have personally performed a face to face evaluation on this patient. I have reviewed and agree with the care plan. History and Exam by me shows cc: Chest pain. Pt presented to the ER with multiple complaints, including precordial chest pain , occurring the day before admission, mid chest, non-radiating, associated with shortness of breath, 6/10 at most severe, lasting fifteen minutes, relieved with sublinqual ntg x 3. He has not had a reoccurence of chest pain. Pt reports shortness of breath has improved since admission. He reports is now comfortable at rest, wants to go home. PE: Agree with above. IMP: 1. Chest pain, not clearly cardiac, unsure of exact etiology, cardiac enzemes negative, pt declines any further evaluation this admission, wants to be discharged, will follow up as outpatient. 2. CAD: moderate CAD, with stenosis in RCA, not clinically significant by FFR, pateh stens in circmflex. Pt is a candidate for stress imaging, will follow as an outpatient, he does not want to stay for further evaluation. 3. Prostate cancer with mets to liver and spine. 4. CKD stage 3, continue medical management. : Assessment and Plan Discussion w patient/family: The assessment and plan as outlined above was discussed with the patient and/or family members who expressed understanding and agreement. All questions were answered. Thank you for involving us in the care of your patient. Please call with any questions. History of Present Illness History of present illness: Mr. Parsons is a 81 year old male All Systems Review: A 10-system review of systems was performed and is negative for pertinent findings except as documented above in the HPI. Results 05/01/17 00:56 05/01/17 00:56
[2017-05-01] MEDS: predniSONE 5 MG TABLET PO SCH (09:16)
--- NOTE | 2017-05-01 09:32 | Internal Med Progress Note ---
Date of Encounter: 05/01/17 Time of Encounter: 09:30 - Assessment and plan (1) Chest pain Current Visit: Yes Status: Acute Assessment and plan: History of CAD with stents Continue aspirin, Plavix, Lipitor, start metoprolol VQ scan showed low probability for PE May discontinue heparin drip after being evaluated by cardiology Qualifiers: Chest pain type: unspecified Qualified Code(s): R07.9 - Chest pain, unspecified (2) CAD (coronary artery disease) Current Visit: Yes Status: Chronic Assessment and plan: Awaiting cardiology recommendations Qualifiers: Coronary Disease-Associated Artery/Lesion type: [place] artery [place] vs. transplanted heart: [place] heart Associated angina: with unstable angina Qualified Code(s): I25.110 - Atherosclerotic heart disease of [place] coronary artery with unstable angina pectoris (3) Afib Current Visit: Yes Status: Chronic Assessment and plan: Had an ablation 6 weeks ago Qualifiers: Atrial fibrillation type: paroxysmal Qualified Code(s): I48.0 - Paroxysmal atrial fibrillation (4) Diabetes Current Visit: No Status: Chronic Assessment and plan: Insulin sliding scale Qualifiers: Diabetes mellitus type: type 2 Diabetes mellitus complication status: with kidney complications Diabetes mellitus complication detail: with chronic kidney disease Diabetes mellitus detention insulin use: with buttermaker use Chronic kidney disease stage: stage 3 (moderate) Qualified Code(s): E11.22 - Type 2 diabetes mellitus with diabetic chronic kidney disease; N18.3 - Chronic kidney disease, stage 3 (moderate); N18.3 - Chronic kidney disease, stage 3 ( moderate); Z79.4 - [employer] (current) use of insulin; Z79.4 - senior living ( current) use of insulin; Z79.4 - senior living (current) use of insulin; Z79.4 - senior living (current) use of insulin (5) CKD stage 3 due to type 2 diabetes mellitus Current Visit: Yes Status: Chronic (6) Prostate cancer metastatic to bone Current Visit: No Status: Chronic Assessment and plan: Follow up as an outpatient (7) Chronic diastolic (congestive) heart failure Current Visit: No Status: Chronic (8) Malignant neoplasm of prostate metastatic to liver Current Visit: No Status: Acute (9) Prostate cancer Current Visit: No Status: Chronic - Subjective Interval history: denies CP , nitro helped, no nausea or vomiting, no fevers, no chills, no diarrhea or dysuria - Constitutional Vitals: Temp Pulse Resp BP Pulse Ox 97.5 F L 88 18 121/63 96 05/01/17 07:58 05/01/17 07:58 05/01/17 07:58 05/01/17 07:58 05/01/17 07:58 General appearance: Present: cooperative, A&O X 3, pleasant, no acute distress, answers questions appropriately - Head Head exam: Present: atraumatic, normocephalic - Eye Eye exam: Present: PERRL, conjuntiva pink, sclera anicteric Pupils: Present: PERRL - Neck Neck exam general surgery: Present: supple, trachea midline. Absent: lymphadenopathy - Respiratory Respiratory exam: Present: CTAB. Absent: accessory muscle use, rales, rhonchi, wheezes - Cardiovascular Cardiovascular exam: Present: RRR, +S1, +S2. Absent: diastolic murmur, gallop, rubs, systolic murmur - GI/Abdominal GI/Abdominal exam: Present: normal bowel sounds, soft, no peritoneal signs. Absent: distended, tenderness - Extremities Exam Extremities exam: Present: warm, radial pulses palpable and symmetrical. Absent : calf tenderness, cyanotic, pedal edema - Neurological Exam Neurological exam: Present: CN II-XII intact, oriented X3, no focal deficits. Absent: pronater drift, facial droop, speech deficit - Skin Skin exam: Present: dry, intact Internal Medicine: Result - Labs CBC & Chem 7: 05/01/17 00:56 05/01/17 00:56 Labs: Short CBC 04/30/17 05/01/17 Range/Units 19:31 00:56 WBC 5.7 6.6 (4.3-11.1) K/mcL Hgb 10.3 L 9.6 L (12.9-16.9) g/dL Hct 32.7 L 31.1 L (37.5-50.1) % Plt Count 245 252 (140-400) K/mcL Neutrophils # 5.0 (1.6-8.9) K/mcL BMP 05/01/17 00:56 Sodium 132 L Potassium 4.1 Chloride 101 Carbon Dioxide 23 BUN 33 H Creatinine 1.49 H Glucose 264 H Calcium 8.6 Cardiac Enzymes 04/30/17 05/01/17 Range/Units 19:31 00:55 Troponin I < 0.03 < 0.03 (< 0.04) ng/mL Liver Function 05/01/17 Range/Units 00:56 Total Bilirubin 0.4 (0.3-1.0) mg/dL AST 48 H (13-39) Units/L ALT 53 H (7-52) Units/L Alkaline Phosphatase 105 H (34-104) Units/L Albumin 3.2 L (3.5-5.7) g/dL Urine 04/30/17 Range/Units 21:46 Urine Color Yellow (Yellow) Urine Clarity Clear (Clear) Urine pH 6.0 (5.0-8.0) pH Units Ur Specific [place] 1.027 H (1.010-1.025) Urine Protein Negative (Neg-Trace) mg/dL Urine Glucose (UA) >=1000 H (Normal) mg/dL - ABG Interpretation ABG results: PT/INR, D-dimer PT 11.0 Seconds (9.4-12.1) 04/30/17 19:31 D-Dimer 1774 ng/mLFEU (0-500) H 04/30/17 17:25 - Impressions Impressions Pulmonary Perfusion Imaging 04/30/17 16:54 IMPRESSION: Low probability for pulmonary embolism. D/ / Eamon Khan MD / Eamon Khan MD Interpreting Provider: Eamon Khan MD Consult Discharge Plan - Plan Referrals: Rozina Villeda MD [Primary Care Provider] -
[2017-05-01 12:54] VITALS: BP 110/60
--- NOTE | 2017-05-01 14:53 | Discharge Summary ---
Date of Encounter: 05/01/17 Time of Encounter: 14:49 - Discharge Diagnosis (1) Chest pain Priority: Primary Status: Acute Comments: Atypical chest pain Qualifiers: Chest pain type: unspecified Qualified Code(s): R07.9 - Chest pain, unspecified (2) CAD (coronary artery disease) Priority: Secondary Status: Chronic Qualifiers: Coronary Disease-Associated Artery/Lesion type: [place] artery [place] vs. transplanted heart: [place] heart Associated angina: with unstable angina Qualified Code(s): I25.110 - Atherosclerotic heart disease of [place] coronary artery with unstable angina pectoris (3) Afib Priority: Secondary Status: Chronic Qualifiers: Atrial fibrillation type: paroxysmal Qualified Code(s): I48.0 - Paroxysmal atrial fibrillation (4) Diabetes Priority: Secondary Status: Chronic Qualifiers: Diabetes mellitus type: type 2 Diabetes mellitus complication status: with kidney complications Diabetes mellitus complication detail: with chronic kidney disease Diabetes mellitus correction insulin use: with correction use Chronic kidney disease stage: stage 3 (moderate) Qualified Code(s): E11.22 - Type 2 diabetes mellitus with diabetic chronic kidney disease; N18.3 - Chronic kidney disease, stage 3 (moderate); N18.3 - Chronic kidney disease, stage 3 ( moderate); Z79.4 - jail (current) use of insulin; Z79.4 - jail ( current) use of insulin; Z79.4 - jail (current) use of insulin; Z79.4 - jail (current) use of insulin (5) CKD stage 3 due to type 2 diabetes mellitus Priority: Secondary Status: Chronic (6) Prostate cancer metastatic to bone Priority: Secondary Status: Chronic (7) Chronic diastolic (congestive) heart failure Priority: Secondary Status: Chronic (8) 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 Acidophilus/Bifid. Animalis [One-A-Day Trubiotics Capsule] 1 each PO DAILY [History] Lutein 20 mg PO DAILY 01/09/17 [History] Cyanocobalamin (B-12) [Vitamin B12] 1,000 mcg IM QMONTH 01/01/17 [History] [place]-3/Dha/Epa/Fish Oil [Fish Oil 1,000 mg Softgel] 1 each PO DAILY 01/09/17 [ History] Mv-Mn/FA/Lycopene/Lut/Hb#178 [Nirav Multivit For Men Caplet] 1 each PO DAILY [History] Promethazine [Phenergan] 25 mg PO Q6HR PRN #30 tablet 03/06/17 [Rx] Benzonatate [Tessalon] 200 mg PO BID PRN #30 capsule 03/29/17 [Rx] Clopidogrel [Plavix] 75 mg PO DAILY 03/29/17 [History] Bisacodyl [Dulcolax] 10 mg RC DAILY PRN #30 supp.rect 04/10/17 [Rx] Aspirin [Lo-Dose Aspirin EC] 81 mg PO DAILY 04/16/17 [History] Tamsulosin [Flomax] 0.4 mg PO DAILY #30 cap.er.24h 04/16/17 [Rx] Ferrous Sulfate 324 mg PO DAILY 04/30/17 [History] MOM Conc [MILK OF MAGNESIA conc] 10 ml PO PRN PRN 04/30/17 [History] predniSONE [PredniSONE] 5 mg PO BID 04/30/17 [History] Allergies/Adverse Reactions: 3 Allergy/AdvReac Type Severity Reaction Status Date / Time amlodipine AdvReac Difficulty Verified 04/16/17 08:36 Breathing diphenhydramine AdvReac Shakiness Verified 04/16/17 08:36 lorazepam [From Ativan] AdvReac Seizure Verified 04/30/17 17:08 Procedures/tests Complete & Pending: Procedures Performed prior 72 hours Category Date Time Status VQ Scan [NM pul vent and perfuse] [NM] Stat Exams 04/30/17 16:54 Completed Date of admission: 04/30/17 15:20 Primary care physician: Rozina Aguirre Consults: 04/30/17 16:47 Consult to Pharmacometrician [CONS] Routine Reason for SW Consult: Possible need for home health 04/30/17 16:48 Consult to Pharmacometrician [CONS] Routine Reason for SW Consult: Please assess patient for possible home needs, especially rehab needs, d/t weakness for post-discharge planning. 04/30/17 16:49 Consult to Occupational Therapy [CONS] Routine Comment: Evaluate, develop and implement POC Reason for Consult: Patient reports generalized weakness and difficulty w/ ambulating for very long. Denies use of assistive devices currently. Please assess patient for ambulation strength, stability, safety, and possible home assistive needs/ rehabilitation qualification for post-discharge planning. 04/30/17 16:50 Consult to Physical Therapy [CONS] Routine Comment: Evaluate, develop and implement POC Reason for Consult: Patient reports generalized weakness and difficulty w/ ambulating for very long. Denies use of assistive devices currently. Please assess patient for ambulation strength, stability, safety, and possible home assistive needs/ rehabilitation qualification for post-discharge planning. 04/30/17 17:22 Consult to Cardiology [CONS] Routine Comment: Consulting Provider: Indiana Mohr Reason for Consult: 81 yo male w/chief complaint of intermittent chest pain for the past several weeks which worsened today. Central chest pressure w/radiation to back of neck and back. 3 nitro @ home brought pain from 8 to 2. Hx of [place] x3 and stents x8. Initial trop <0.03. Echocardiogram on 04/06/17 showed technically adequate exam, normal sinus rhythm, mild concentric left ventricular hypertrophy, mild left ventricular diastolic dysfunction, LVEF 60%, trace aortic regurgitation, trace mitral regurgitation, mild tricuspid regurgitation. States sx feel like previous [place] when they found blockages. Call Completed: Yes - Patient Status Disposition: Home, Self-Care Condition: Good Overall status at discharge: patient is back to baseline - Discharge Instructions Follow Up With: Rozina Villeda MD [Primary Care Provider] - Additional Instructions: Follow-up with primary care physician within the next 7 days. Follow-up with cardiology as needed - Diet and Activity Activity: increase activity as tolerated Diet: diabetic diet Hospital course: Mr. Parsons is a 81 year old male with a relevant past medical history of CAD , SVT, paroxysmal atrial fibrillation/flutter, DM 2 insulin dep, hypertension, hyperlipidemia, TIAs, dementia, CKD3, and prostate cancer with metastasis to bone and liver. Was seen during hospital stay March 2017 by electrophysiology and started on amiodarone. Was on aspirin only for anticoagulation. Seen by cardiology during hospital stay later in March 2017 with echo showing EF 60%. Cardiology consulted. "Had atrial fibrillation w/ablation 6 weeks ago; cancer of liver, prostate, and bone; CAD, diabetes controlled with insulin, myocardial infarction 3, CK-MB, and TIAs presented to the ED with chief complaint of chest pain and SOB for the past several weeks that became worse today. Reports as pressure in the center of his chest w/radiation to back of neck and back. States 3 nitroglycerin today took pain from 8 to 2. Pt. states pain can last minutes to hours. Reported SOB, generalized weakness, numbness in right fingers/ hand, and CP but denied recent illness, fever, chills, nausea, vomiting, changes in vision, palpitations, abdominal pain, diarrhea, constipation, tingling, unusual bleeding, dizziness, lightheadedness, pre-syncope, or syncope ". Family at bedside. Main concern was worsening shortness of breath at rest and with exertion. He reported yesterday he had some midsternal chest tightness as above, now resolved. He denied any chest pain at the moment. Overall source of shortness of breath has improved. He denies any other concerns or complaints. Atypical CP at rest, now resolved.Trops - x 3. Heparin drip was discontinued after the evaluation from cardiology. Last echo 04/06/17: Impressions: Technically adequate exam. Normal sinus rhythm. Mild concentric left ventricular hypertrophy. Mild left ventricular diastolic dysfunction. LVEF 60%. Trace aortic regurgitation. Trace mitral regurgitation. Mild tricuspid regurgitation Patient the patient's family preferred to be discharged this point. The patient 's says that he is intolerant to beta blockers, risks of not using them were explained. Statin was offered and rejected as well. Needs to discuss further treatment with primary care physician - Time Spent with Patient Total time spent providing and/or coordinating discharge services: Greater than 30 minutes (40 min) - Constitutional Vitals: Temp Pulse Resp BP Pulse Ox 97.7 F 74 18 110/60 98 05/01/17 12:49 05/01/17 12:49 05/01/17 12:49 05/01/17 12:49 05/01/17 12:49 General appearance: Present: cooperative, A&O X 3, pleasant, no acute distress, answers questions appropriately Exam: - Head Head exam: Present: atraumatic, normocephalic - Eye Eye exam: Present: PERRL, conjuntiva pink, sclera anicteric Pupils: Present: PERRL - Neck Neck exam general surgery: Present: supple, trachea midline. Absent: lymphadenopathy - Respiratory Respiratory exam: Present: CTAB. Absent: accessory muscle use, rales, rhonchi, wheezes - Cardiovascular Cardiovascular exam: Present: RRR, +S1, +S2. Absent: diastolic murmur, gallop, rubs, systolic murmur - GI/Abdominal GI/Abdominal exam: Present: normal bowel sounds, soft, no peritoneal signs. Absent: distended, tenderness - Extremities Exam Extremities exam: Present: warm, radial pulses palpable and symmetrical. Absent : calf tenderness, cyanotic, pedal edema - Neurological Exam Neurological exam: Present: CN II-XII intact, oriented X3, no focal deficits. Absent: pronater drift, facial droop, speech deficit - Skin Skin exam: Present: dry, intact
--- NOTE | 2017-05-01 15:05 | Physician Discharge Referral ---
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 For more information, call the [place] Tobacco Quit Line at 7-757-TFIT-NOW. - Services Needed Following services are medically necessary services: Physical Therapy, Occupational Therapy Home Care Orders: Follow-up with primary care physician within the next 7 days. Follow-up with cardiology as needed - Transfer Medications Home Medications: Insulin ASPART [NovoLOG] 0 - 11 unit SQ TID MDD Sliding Scale 01/18/15 [History] Insulin Glargine,Hum.rec.anlog [Toubetteo Solostar] 15 unit SQ HS 03/03/16 [History ] L. Acidophilus/Bifid. Animalis [One-A-Day Trubiotics Capsule] 1 each PO DAILY [History] Lutein 20 mg PO DAILY 04/17/16 [History] Cyanocobalamin (B-12) [Vitamin B12] 1,000 mcg IM QMONTH 01/01/17 [History] [place]-3/Dha/Epa/Fish Oil [Fish Oil 1,000 mg Softgel] 1 each PO DAILY 01/09/17 [ History] Mv-Mn/FA/Lycopene/Lut/Hb#178 [Nirav Multivit For Men Caplet] 1 each PO DAILY [History] Promethazine [Phenergan] 25 mg PO Q6HR PRN #30 tablet 03/06/17 [Rx] Benzonatate [Tessalon] 200 mg PO BID PRN #30 capsule 03/29/17 [Rx] Clopidogrel [Plavix] 75 mg PO DAILY 03/29/17 [History] Bisacodyl [Dulcolax] 10 mg RC DAILY PRN #30 supp.rect 04/10/17 [Rx] Aspirin [Lo-Dose Aspirin EC] 81 mg PO DAILY 04/16/17 [History] Tamsulosin [Flomax] 0.4 mg PO DAILY #30 cap.er.24h 04/16/17 [Rx] Ferrous Sulfate 324 mg PO DAILY 04/30/17 [History] MOM Conc [MILK OF MAGNESIA conc] 10 ml PO PRN PRN 04/30/17 [History] predniSONE [PredniSONE] 5 mg PO BID 04/30/17 [History] Allergies/Adverse Reactions: 3 Allergy/AdvReac Type Severity Reaction Status Date / Time amlodipine AdvReac Difficulty Verified 04/16/17 08:36 Breathing diphenhydramine AdvReac Shakiness Verified 04/16/17 08:36 lorazepam [From Ativan] AdvReac Seizure Verified 04/30/17 17:08 Certification: Further, I certify that my clinical findings support that this patient is homebound (i.e. absences from home require considerable and taxing effort and are for medical reasons or latter day services or infrequently or short duration when for other reasons) because: Homebound Reason: Patient requires assistance of a person or device to safely leave home Attestation: My signature below is to certify that this patient is under my care and that I, or nurse practitioner, or a physician's rehabilitation assistant working with me, has a face-to -face encounter with this patient.
--- NOTE | 2017-05-02 07:57 | Electrocardiograph Report ---
[address] [address] Test Date: 2017-04-30 Pat Name: Lauro Parsons Department: 102 Room: 3B21 Gender: M [employer] Controller: : 1935 Requested By: José Branham Order Number: [id number] Reading MD: Derrick Chaney MD Measurements Intervals [place] Rate: 98 P: 60 CT: 153 QRS: -2 QRSD: 76 T: 44 QT: 334 QTc: 389 Interpretive Statements SINUS RHYTHM WITH OCCASIONAL VENTRICULAR PREMATURE COMPLEXES Electronically Signed On 05-02-2017 7:18:00 EST by Derrick Chaney MD
== END 2017-05-01 15:43 | disposition home or self-care (01) ==
LOC: EMEROO 13:10 → 3BNU 13:10
PROVIDERS: ADMIT Registered Nurse; ATTEND Registered Nurse